=== PATIENT | male | born 1945 | race Hispanic/Latino ===

== ENCOUNTER → 2017-07-07 | Outpatient (CLI) | payer MEDICARE ==
--- NOTE | 2017-07-07 17:30 | Diagnostic Imaging Report ---
PROCEDURE:TESTICULAR ULTRASOUND and TESTICULAR DOPPLER ULTRASOUND COMPARISON:None. INDICATIONS:Left Testicular Pain TECHNIQUE: Amor-scale and color doppler images of the testicles and scrotal contents were obtained. Duplex imaging with spectral waveform analysis was performed of the testicular arteries and veins. FINDINGS: RIGHT SCROTUM: Testicle: 3.4 x 1.5 x 2.8 cm. 0.5 x 0.6 x 0.6 cm cyst in the right testicle. Epididymal head: 0.9 x 0.6 x 0.8 cm. 0.7 x 0.4 x 0.6 cm 0.3 x 0.2 x 0.3 cm right epididymal head cyst. Hydrocele: Mild Varicocele: None LEFT SCROTUM: Testicle: 3.4 x 1.6 x 2.1 cm. Several scattered punctate echogenic foci, likely calcifications without associated mass measured up to 0.1 cm. Epididymal head: 0.9 x 0.5 x 0.9 cm. Simple 4 x 0.4 x 0.4 cm and 0.2 x 0.2 x 0.2 cm left epididymal head cyst. Hydrocele: None Varicocele: None CONCLUSION: 1. Several left testicular microlithiasis, which is nonspecific. 2. Otherwise normal testicular ultrasound. Dictated by: Linus Hanna M.D. on 07/07/2017 at 17:30 Electronically approved by: Linus Hanna M.D. on 07/07/2017 at 17:30 Electronically approved by: Linus Hanna M.D. on 07/07/2017 at 17:32
--- NOTE | 2017-07-07 17:31 | Diagnostic Imaging Report ---
PROCEDURE:TESTICULAR DOPPLER ULTRASOUND COMPARISON:None. INDICATIONS:Left Testicular Pain TECHNIQUE: Amor-scale and color doppler images of the testicles and scrotal contents were obtained. Duplex imaging with spectral waveform analysis was performed of the testicular arteries and veins. FINDINGS: Please see testicular ultrasound for combined dictation. CONCLUSION: Please see testicular ultrasound for combined dictation. Dictated by: Linus Hanna M.D. on 07/07/2017 at 17:31 Electronically approved by: Linus Hanna M.D. on 07/07/2017 at 17:31
== END ==
LOC: US 15:14
PROVIDERS: ATTEND Urology
DX: G89.29 Other chronic pain (principal)
CPT/HCPCS: 76870; 93976

== ENCOUNTER → 2017-10-27 | Outpatient (CLI) | payer MEDICARE ==
--- NOTE | 2017-10-27 18:21 | Diagnostic Imaging Report ---
EXAM: Scrotal Ultrasound with Duplex INDICATION: Follow-up epididymal cysts. COMPARISON: Scrotal ultrasound dated 07/07/2017 TECHNIQUE: Transverse and longitudinal images were obtained of the scrotum with grayscale imaging, color Doppler and spectral waveform analysis. FINDINGS: Right testis: Size: 3.5 x 1.4 x 2.4 cm, normal in size. Echogenicity: Normal Mass/Cysts: 0.5 x 0 6 x 0.6 cm cyst in the mid/inferior portion, unchanged. Left testis: Size: 2.8 x 1.7 x 2.3 cm, normal in size. Echogenicity: Microcalcification is again seen, measuring 0.1 cm. Mass/Cysts: None Epididymis: Appearance: Normal in size without increased vascularity. Mass/Cysts: Multiple right epididymal head cysts/spermatoceles, the largest measuring 0.6 cm, previously 0.9 cm. Multiple left epididymal cysts/spermatoceles, the largest measuring 0.6 cm, previously 0.9 cm. Extratesticular: Masses: None Hydrocele: Trace bilateral hydrocele. Varicocele: None Doppler: Normal arterial flow to both testes and symmetrical flow on color Doppler evaluation is seen. No evidence of testicular torsion. IMPRESSION: 1. No evidence of testicular torsion. 2. Multiple bilateral epididymal head cyst/spermatoceles, stable or slightly decreased in size from prior exam. 3. Stable right testicular cyst. 4. Unchanged left testicular microcalcification. 5. Trace bilateral hydrocele. Signed by: Dr. Fareed Gayle MD on 10/27/2017 6:18 PM
== END ==
LOC: US 16:07
PROVIDERS: ATTEND Urology
DX: N43.40 Spermatocele of epididymis, unspecified (principal)
CPT/HCPCS: 76870; 93976

== ENCOUNTER → 2018-02-24 | Outpatient (CLI) | payer MEDICARE ==
[~2018-02-24] MED LIST: DOCUSATE SODIU100 MG PO; DOXAZOSIN MESYLA2 MG PO; FINASTERIDE5 MG PO; FUROSEMIDE INJ 10 MG/ML 4 ML VIAL ONE; HYDRALAZINE HCL25 MG PO; LASIX40 MG PO; LOSARTAN POTAS100 MG PO; METOPROLOL SUCC50 MG PO; POTASSIUM CHLO10 ME1 PO; TAMSULOSIN HCL0.4 MG PO
--- NOTE | 2018-02-24 20:22 | Diagnostic Imaging Report ---
Renal Scan with Lasix Washout Clinical information: 72 M with unspecified hydronephrosis; Htn. No history of renal disease. Technique: Following intravenous administration of 11 mCi of Tc-99m MAG3, dynamic images of the kidneys in the posterior projection were obtained through 40 minutes. Lasix 40 mg was administered intravenously at 10 minutes post injection of the tracer. Report: Left kidney: Perfusion of the left kidney is prompt. The kidney small but has a reniform shape. Extraction of tracer from the blood pool is moderately decreased. Clearance of tracer from the renal parenchyma is delayed and only a very small amount of tracer is actually cleared (excreted) from the renal parenchyma. The pelvicalyceal system is not dilated. Some but minimal pooling of tracer is seen within the pelvicalyceal system. No net drainage of tracer from the pelvicalyceal system is seen prior to administration of Lasix. No washout of tracer from the pelvicalyceal system is seen following administration of Lasix. The renogram reaches a plateau and has no downward slope at al post Lasix. No significant stasis of tracer is seen within the left ureter. Right kidney: Perfusion to the right kidney is prompt. The right kidney is small but has a reniform shape. Extraction of tracer by the renal parenchyma is moderately. Clearance of tracer from the pelvicaliceal system starts promptly but is not complete by the end of the study. No dilation of the pelvicalyceal system is present. Some but very minimal increased pooling of tracer is seen in the pelvicalyceal system. No net drainage of tracer is seen from the pelvicalyceal system prior to administration of Lasix. Very limited washout of tracer from the pelvicalyceal system is seen following administration of Lasix but the renogram quickly reaches a plateau. The T-1/2 for Lasix washout is undefined given the very short time of washout and the limited amount of tracer that is cleared from the parenchyma. No significant stasis of tracer is seen within the right ureter. Differential renal function: The left kidney contributes 46% of total renal function and the right kidney contributes 54% (normal 43-57%). Impression: 1. Scan evidence of moderately severe medical renal disease and/or tubular dysfunction in the left kidney. The excretory function is very poor. No hydronephrosis is present. Physiologically significant obstruction of the renal collecting system is not suspected but cannot be adequately assessed using the Lasix washout method due to the significantly impaired excretory function of the kidney. 2. The function of the right kidney is slightly better than the left and reflects medical renal disease evidenced by poor clearance (excretion) of tracer from the pelvicalyceal system. No tubular dysfunction is apparent as is seen in the left kidney. No hydronephrosis is present. Physiologically significant obstruction of the renal collecting system is not suspected but cannot be adequately assessed using the Lasix washout method due to the significantly impaired excretory function of the kidney. 3. The width of the differential renal function is preserved although visually the right kidney has better overall function evidenced by more clearance (excretion) of tracer from the renal parenchyma. Signed by: Dr. Sherice Leahy M.D. on 02/24/2018 8:19 PM
== END ==
LOC: NM 08:29
PROVIDERS: ATTEND Urology
DX: N13.30 Unspecified hydronephrosis (principal)
CPT/HCPCS: 78708; A9562; J1940

== ENCOUNTER 2018-04-01 09:20 | Inpatient (IN) | payer MEDICARE ==
[~2018-04-01] VITALS: Ht 177.8 cm; Wt 84.4 kg
--- OUTSIDE RECORDS SUMMARY | 2018-04-01 09:24 | XMS REPORT ---
Author Author [facility] Address Unknown Phone Unavailable Care Team Providers Care Fur Dresser Name Role Phone DEEPALI VERA Unavailable Unavailable Problems This patient has no known problems. Allergies, Adverse Reactions, Alerts This patient has no known allergies or adverse reactions. Medications This patient has no known medications. Results Test Description Test Time Test Comments Text Results Atomic Results Result Comments RENAL SCAN W/LASIX 2018-02-24 19:13:00 [facility] [address] [place] [address] Patient Name: MINI TEJEDA MR #: [id number] : 1945 Age/Sex: 72/M Req #: [id number] Adm Physician: Ordered by: DEEPALI VERA MD Report #: [id number] Location: [place] Room/Bed: Procedure: [id number] NM/RENAL SCAN W/LASIX Exam Date: 02/24/18 Exam Time: 0845 REPORT STATUS: Signed Renal Scan with Lasix Washout Clinical information: 72 M with unspecified hydronephrosis; Htn. No history of renal disease. Technique: Following intravenous administration of 11 mCi of Tc-99m MAG3, dynamic images of the kidneys in the posterior projection were obtained through 40 minutes. Lasix 40 mg was administered intravenously at 10 minutes post injection of the tracer. Report: Left kidney: Perfusion of the left kidney is prompt. The kidney small but has a reniform shape. Extraction of tracer from the blood pool is moderately decreased. Clearance of tracer from the renal parenchyma is delayed and only a very small amount of tracer is actually cleared (excreted) from the renal parenchyma. The pelvicalyceal system is not dilated. Some but minimal pooling of tracer is seen within the pelvicalyceal system. No net drainage of tracer from the pelvicalyceal system is seen prior to administration of Lasix. No washout of tracer from the pelvicalyceal system is seen following administration of Lasix. The renogram reaches a plateau and has no downward slope at al post Lasix. No significant stasis of tracer is seen within the left ureter. Right kidney: Perfusion to the right kidney is prompt. The right kidney is small but has a reniform shape. Extraction of tracer by the renal parenchyma is moderately. Clearance of tracer from the pelvicaliceal system starts promptly but is not complete by the end of the study. No dilation of the pelvicalyceal system is present. Some but very minimal increased pooling of tracer is seen in the pelvicalyceal system. No net drainage of tracer is seen from the pelvicalyceal system prior to administration of Lasix. Very limited washout of tracer from the pelvicalyceal system is seen following administration of Lasix but the renogram quickly reaches a plateau. The T-1/2 for Lasix washout is undefined given the very short time of washout and the limited amount of tracer that is cleared from the parenchyma. No significant stasis of tracer is seen within the right ureter. Differential renal function: The left kidney contributes 46% of total renal function and the right kidney contributes 54% (normal 43- 57%). Impression: 1. Scan evidence of moderately severe medical renal disease and/or tubular dysfunction in the left kidney. The excretory function is very poor. No hydronephrosis is present. Physiologically significant obstruction of the renal collecting system is not suspected but cannot be adequately assessed using the Lasix washout method due to the significantly impaired excretory function of the kidney. 2. The function of the right kidney is slightly better than the left and reflects medical renal disease evidenced by poor clearance (excretion) of tracer from the pelvicalyceal sy stem. No tubular dysfunction is apparent as is seen in the left kidney. No hydronephrosis is present. Physiologically significant obstruction of the renal collecting system is not suspected but cannot be adequately assessed using the Lasix washout method due to the significantly impaired excretory function of the kidney. 3. The width of the differential renal function is preserved although visually the right kidney has better overall function evidenced by more clearance (excretion) of tracer from the renal parenchyma. Signed by: Dr. Bryant Leahy M.D. on 02/24/2018 8:19 PM Dictated By: BRYANT LEAHY MD 18 Transcribed By: NELY on 02/24/182018 COPY TO: DEEPALI VERA MD US TESTICULAR DOPPLER LTD 2017-10-27 18:03:00 [place] [address] Patient Name: MINI TEJEDA MR #: [id number] : 1945 Age/Sex: 71/M Req #: [id number] Adm Physician: Ordered by: DEEPALI VERA MD Report #: [id number] Location: US Room/Bed: Procedure: [id number] US/US TESTICULAR DOPPLER LTD Exam Date: 10/27/17 Exam Time: 1637 REPORT STATUS: Signed EXAM: Scrotal Ultrasound with Duplex INDICATION: Follow-up epididymal cysts. COMPARISON: Scrotal ultrasound dated 07/07/2017 TECHNIQUE: Transverse and longitudinal images were obtained of the scrotum with grayscale imaging, color Doppler and spectral waveform analysis. FINDINGS: Right testis: Size: 3.5 x 1.4 x 2.4 cm, normal in size. Echogenicity: Normal Mass/Cysts: 0.5 x 0 6 x 0.6 cm cyst in the mid/inferior portion, unchanged. Left testis: Size: 2.8 x 1.7 x 2.3 cm, normal in size. Echogenicity: Microcalcification is again seen, measuring 0.1 cm. Mass/Cysts: None Epididymis: Appearance: Normal in size without increased vascularity. Mass/Cysts: Multiple right epididymal head cysts/spermatoceles, the largest measuring 0.6 cm, previously 0.9 cm. Multiple left epididymal cysts/spermatoceles, the largest measuring 0.6 cm, previously 0.9 cm. Extratesticular: Masses: None Hydrocele: Trace bilateral hydrocele. Varicocele: None Doppler: Normal arterial flow to both testes and symmetrical flow on color Doppler evaluation is seen. No evidence of testicular torsion. IMPRESSION: 1. No evidence of testicular torsion. 2. Multiple bilateral epididymal head cyst/spermatoceles, stable or slightly decreased in size from prior exam. 3. Stable right testicular cyst. 4. Unchanged left testicular microcalcification. 5. Trace bilateral hydrocele. Signed by: Dr. Fareed Parr MD on 10/27/2017 6:18 PM Dictated By: FAREED PARR MD 17 Transcribed By: NELY on 10/27/171817 COPY TO: DEEPALI VERA MD TESTICULAR 2017-10-27 18:03:00 [place] [address] Patient Name: MINI TEJEDA MR #: [id number] : 1945 Age/Sex: 71/M Req #: [id number] Adm Physician: Ordered by: DEEPALI VERA MD Report #: [id number] Location: US Room/Bed: Procedure: [id number] US/US TESTICULAR Exam Date: 10/27/17 Exam Time: 1637 REPORT STATUS: Signed EXAM: Scrotal Ultrasound with Duplex INDICATION: Follow-up epididymal cysts. COMPARISON: Scrotal ultrasound dated 07/07/2017 TECHNIQUE: Transverse and longitudinal images were obtained of the scrotum with grayscale imaging, color Doppler and spectral waveform analysis. FINDINGS: Right testis: Size: 3.5 x 1.4 x 2.4 cm, normal in size. Echogenicity: Normal Mass/Cysts: 0.5 x 0 6 x 0.6 cm cyst in the mid/inferior portion, unchanged. Left testis: Size: 2.8 x 1.7 x 2.3 cm, normal in size. Echogenicity: Microcalcification is again seen, measuring 0.1 cm. Mass/Cysts: None Epididymis: Appearance: Normal in size without increased vascularity. Mass/Cysts: Multiple right epididymal head cysts/spermatoceles, the largest measuring 0.6 cm, previously 0.9 cm. Multiple left epididymal cysts/spermatoceles, the largest measuring 0.6 cm, previously 0.9 cm. Extratesticular: Masses: None Hydrocele: Trace bilateral hydrocele. Varicocele: None Doppler: Normal arterial flow to both testes and symmetrical flow on color Doppler evaluation is seen. No evidence of testicular torsion. IMPRESSION: 1. No evidence of testicular torsion. 2. Multiple bilateral epididymal head cyst/spermatoceles, stable or slightly decreased in size from prior exam. 3. Stable right testicular cyst. 4. Unchanged left testicular microcalcification. 5. Trace bilateral hydrocele. Signed by: Dr. Fareed Parr MD on 10/27/2017 6:18 PM Dictated By: FAREED PARR MD 17 Transcribed By: NELY on 10/27/171817 COPY TO: DEEPALI VERA MD TESTICULAR [place] [address] Patient Name: MINI TEJEDA MR #: [id number] : 1945 Age/Sex: 71/M Req #: [id number] Adm Physician: Ordered by: DEEPALI VERA MD Report #: [id number] Location: US Room/Bed: Procedure: [id number] US/US TESTICULAR Exam Date: 07/07/17 Exam Time: 1601 REPORT STATUS: Signed PROCEDURE: TESTICULAR ULTRASOUND and TESTICULAR DOPPLER ULTRASOUND COMPARISON: None. INDICATIONS: Left Testicular Pain TECHNIQUE: Amor- scale and color doppler images of the testicles and scrotal contents were obtained. Duplex imaging with spectral waveform analysis was performed of the testicular arteries and veins. FINDINGS: RIGHT SCROTUM: Testicle: 3.4 x 1.5 x 2.8 cm. 0.5 x 0.6 x 0.6 cm cyst in the right testicle. Epididymal head: 0.9 x 0.6 x 0.8 cm. 0.7 x 0.4 x 0.6 cm 0.3 x 0.2 x 0.3 cm right epididymal head cyst. Hydrocele: Mild Varicocele: None LEFT SCROTUM: Testicle: 3.4 x 1.6 x 2.1 cm. Several scattered punctate echogenic foci, likely calcifications without associated mass measured up to 0.1 cm. Epididymal head: 0.9 x 0.5 x 0.9 cm. Simple 4 x 0.4 x 0.4 cm and 0.2 x 0.2 x 0.2 cm left epididymal head cyst. Hydrocele: None Varicocele: None CONCLUSION: 1. Several left testicular microlithiasis, which is nonspecific. 2. Otherwise normal testicular ultrasound. Dictated by: Carmen Knox M.D. on 07/07/2017 at 17:30 Electronically approved by: Carmen Knox M.D. on 07/07/2017 at 17:30 Electronically approved by: Carmen Knox M.D. on 07/07/2017 at 17:32 Dictated By: CARMEN KNOX MD 173 Transcribed By: TRINA on 07/07/171732 COPY TO: DEEPALI VERA MD TESTICULAR DOPPLER LTD [place] [address] Patient Name: MINI TEJEDA MR #: [id number] : 1945 Age/Sex: 71/M Req #: [id number] Adm Physician: Ordered by: DEEPALI VERA MD Report #: [id number] Location: US Room/Bed: Procedure: [id number] US/US TESTICULAR DOPPLER LTD Exam Date: 07/07/17 Exam Time: 1601 REPORT STATUS: Signed PROCEDURE: TESTICULAR DOPPLER ULTRASOUND COMPARISON: None. INDICATIONS: Left Testicular Pain TECHNIQUE: Amor-scale and color doppler images of the testicles and scrotal contents were obtained. Duplex imaging with spectral waveform analysis was performed of the testicular arteries and veins. FINDINGS: Please see testicular ultrasound for combined dictation. CONCLUSION: Please see testicular ultrasound for combined dictation. Dictated by: Carmen Knox M.D. on 07/07/2017 at 17:31 Electronically approved by: Carmen Knox M.D. on 07/07/2017 at 17:31 Dictated By: CARMEN KNOX MD 173 Transcribed By: TRINA on 07/07/17 173 COPY TO: DEEPALI VERA MD
--- OUTSIDE RECORDS SUMMARY | 2018-04-01 09:24 | XMS REPORT | Summary of Care ---
Author Author [facility] Address Unknown Phone Unavailable Encounter DELFIN Molina(ZURI) [id number] Date(s): 09/16/15 - 09/16/15 [facility] [address] [place] [address]- Discharge Diagnosis: Enlarged prostate Discharge Diagnosis: Rectal bleeding Discharge Disposition: Home Attending Physician: Migue Joseph DO Vital Signs Most recent to 1 2 oldest [Reference Range]: Height 177.8 cm (09/16/15 2:16 PM) Temperature Oral 98.2 DegF 98.6 DegF [96.4-99.1 DegF] (09/16/15 7:02 PM) (09/16/15 2:16 PM) Blood Pressure 160/75 mmHg 161/79 mmHg [90-140/60-90 mmHg] *HI* *HI* (09/16/15 7:02 PM) (09/16/15 2:16 PM) Respiratory Rate 16 BRMIN 18 BRMIN [14-20 BRMIN] (09/16/15 7:02 PM) (09/16/15 2:16 PM) Peripheral Pulse 75 bpm 77 bpm Rate [60-100 bpm] (09/16/15 7:02 PM) (09/16/15 2:16 PM) Weight 86.364 kg (09/16/15 2:16 PM) Body Mass Index 27.32 m2 (09/16/15 2:16 PM) Problem List No data available for this section Allergies, Adverse Reactions, Alerts Substance Reaction Severity Status NKDA Active Medications No data available for this section Results ELECTROLYTES Most recent to 1 oldest [Reference Range]: Sodium Lvl [135-145 142 mEq/L mEq/L] (09/16/15 3:30 PM) Potassium Lvl 3.3 mEq/L [3.5-5.1 mEq/L] *LOW* (09/16/15 3:30 PM) Chloride Lvl [95-109 104 mEq/L mEq/L] (09/16/15 3:30 PM) CO2 [24-32 mEq/L] 29 mEq/L (09/16/15 3:30 PM) AGAP [10.0-20.0 12.3 mEq/L mEq/L] (09/16/15 3:30 PM) CHEM PANEL Most recent to 1 oldest [Reference Range]: Creatinine Lvl 0.98 mg/dL [0.50-1.40 mg/dL] (09/16/15 3:30 PM) eGFR 78 mL/min/1.73m2 1 *NA* (09/16/15 3:30 PM) BUN [7-22 mg/dL] 9 mg/dL (09/16/15 3:30 PM) B/C Ratio [6-25] 9 (09/16/15 3:30 PM) Glucose Lvl [70-99 101 mg/dL mg/dL] *HI* (09/16/15 3:30 PM) Total Protein 7.8 g/dL [6.4-8.4 g/dL] (09/16/15 3:30 PM) Albumin Lvl [3.5-5.0 3.8 g/dL g/dL] (09/16/15 3:30 PM) Globulin [2.0-4.0 4.0 g/dL g/dL] (09/16/15 3:30 PM) A/G Ratio [0.7-1.6] 1.0 (09/16/15 3:30 PM) Calcium Lvl 9.2 mg/dL [8.5-10.5 mg/dL] (09/16/15 3:30 PM) ALT [0-65 unit/L] 23 unit/L (09/16/15 3:30 PM) AST [0-37 unit/L] 18 unit/L (09/16/15 3:30 PM) Alk Phos [39-136 76 unit/L unit/L] (09/16/15 3:30 PM) Bili Total [0.2-1.3 0.5 mg/dL mg/dL] (09/16/15 3:30 PM) Lipase Lvl [73-393 170 unit/L unit/L] (09/16/15 3:30 PM) 1Result Comment: The eGFR is calculated using the CKD-EPI formula. In most young, healthy individuals the eGFR will be >90 mL/min/1.73m2. The eGFR declines with age. An eGFR of 60-89 may be normal in some populations, particularly the elderly, for whom the CKD-EPI formula has not been extensively validated. Use of the eGFR is not recommended in the following populations: Individuals with unstable creatinine concentrations, including patients and those with serious co-morbid conditions. Patients with extremes in muscle mass or diet. The data above are obtained from the National Kidney Disease Education Program ( NKDEP) which additionally recommends that when the eGFR is used in patients with extremes of body mass index for purposes of drug dosing, the eGFR should be mul tiplied by the estimated BMI. URINE AND STOOL Most recent to 1 oldest [Reference Range]: UA Turbidity [Clear] Clear (09/16/15 3:30 PM) UA Color Ltyellow *NA* (09/16/15 3:30 PM) UA pH [5.0-8.0] 7.0 (09/16/15 3:30 PM) UA Spec Grav 1.009 [<=1.030] (09/16/15 3:30 PM) UA Glucose [Negative Negative mg/dL mg/dL] *NA* (09/16/15 3:30 PM) UA Blood [Negative] Negative (09/16/15 3:30 PM) UA Ketones [Negative Negative mg/dL mg/dL] *NA* (09/16/15 3:30 PM) UA Protein [Negative Negative mg/dL mg/dL] (09/16/15 3:30 PM) UA Urobilinogen <=1.0 mg/dL [0.1-1.0 mg/dL] *NA* (09/16/15 3:30 PM) UA Bili [Negative] Negative *NA* (09/16/15 3:30 PM) UA Leuk Est Trace [Negative] *ABN* (09/16/15 3:30 PM) UA Nitrite Negative [Negative] (09/16/15 3:30 PM) UA WBC [0-5 /HPF] 2 /HPF (09/16/15 3:30 PM) UA RBC [0-2 /HPF] 2 /HPF (09/16/15 3:30 PM) UA Sq Epi None Seen *NA* (09/16/15 3:30 PM) Occult Bld Stl Positive [Negative] *ABN* (09/16/15 3:30 PM) HEMATOLOGY Most recent to 1 oldest [Reference Range]: WBC [3.7-10.4 K/CMM] 6.8 K/CMM (09/16/15 3:30 PM) RBC [4.70-6.10 4.75 M/CMM M/CMM] (09/16/15 3:30 PM) Hgb [14.0-18.0 g/dL] 14.6 g/dL (09/16/15 3:30 PM) Hct [42.0-54.0 %] 43.5 % (09/16/15 3:30 PM) MCV [80.0-94.0 fL] 91.5 fL (09/16/15 3:30 PM) MCH [27.0-31.0 pg] 30.7 pg (09/16/15 3:30 PM) MCHC [32.0-36.0 33.6 g/dL g/dL] (09/16/15 3:30 PM) RDW [11.5-14.5 %] 14.3 % (09/16/15 3:30 PM) Platelet [133-450 248 K/CMM K/CMM] (09/16/15 3:30 PM) MPV [7.4-10.4 fL] 8.6 fL (09/16/15 3:30 PM) Segs [45.0-75.0 %] 61.6 % (09/16/15 3:30 PM) Lymphocytes 29.8 % [20.0-40.0 %] (09/16/15 3:30 PM) Monocytes [2.0-12.0 6.3 % %] (09/16/15 3:30 PM) Eosinophils [0.0-4.0 1.2 % %] (09/16/15 3:30 PM) Basophils [0.0-1.0 1.1 % %] *HI* (09/16/15 3:30 PM) Segs-Bands # 4.2 K/CMM [1.5-8.1 K/CMM] (09/16/15 3:30 PM) Lymphocytes # 2.0 K/CMM [1.0-5.5 K/CMM] (09/16/15 3:30 PM) Monocytes # [0.0-0.8 0.4 K/CMM K/CMM] (09/16/15 3:30 PM) Eosinophils # 0.1 K/CMM [0.0-0.5 K/CMM] (09/16/15 3:30 PM) Basophils # [0.0-0.2 0.1 K/CMM K/CMM] (09/16/15 3:30 PM) Immunizations No data available for this section Procedures No data available for this section Social History Social History Type Response Smoking Status Never smoker; Ready to change: No; Exposure to Tobacco Smoke None; Cigarette Smoking Last 365 Days No; Reg Smoking Cessation Counseling No Assessment and Plan No data available for this section
--- OUTSIDE RECORDS SUMMARY | 2018-04-01 09:24 | XMS REPORT | Continuity of Care Document ---
Author Author [facility] Interface Address Unknown Phone Unavailable Problems Problem Status Onset Date Classification Date Reported Comments Source INTRACTABLE VOMITING, CHEST PAIN Active 02/04/2018 [facility] CHEST PAIN Active 02/04/2018 [facility] Discharge Diagnosis: Enlarged prostate 09/16/2015 09/19/2015 [facility] Discharge Diagnosis: Rectal bleeding 09/16/2015 09/19/2015 [facility] RECTAL BLEEDING Active 09/16/2015 [facility] VOMITING, UNSPECIFIED Active [facility] CHEST PAIN, UNSPECIFIED Active [facility] Medications Medication Details Route Status Patient Instructions Ordering Provider Order Date Source Allergies, Adverse Reactions, Alerts Substance Category Reaction Severity Reaction type Status Date Reported Comments Source Immunizations Immunization Date Given Site Status Last Updated Comments Source Results Order Name Results Value Reference Range Date Interpretation Comments Source ED Abdomen/Pelvis IV contrast only CT ED Abdomen/Pelvis IV contrast only CT CT ABDOMEN AND PELVIS WITH IV CONTRAST CLINICAL INDICATION: - abdominal pain. COMPARISON: 09/16/15 TECHNIQUE: Helical imaging was performed from diaphragm through the symphysis with coronal and sagittal reconstructions. CT imaging was performed with exposure control parameters to reduce radiation dose. IV CONTRAST: [address] Radiation Dose: MNA=6185.41 mGy-cm FINDINGS: LOWER CHEST: Trace bilateral pleural effusions with adjacent airspace opacities that may represent adjacent compressive atelectasis. Airspace opacities within the lingula may also represent atelectasis. Underlying superimposed infiltrate cannot be excluded. LIVER: The liver is mildly enlarged measuring 18 cm in craniocaudal direction. GALLBLADDER: Unremarkable. INTRAHEPATIC BILE DUCT AND EXTRAHEPATIC BILE DUCT: Unremarkable. PANCREAS: Unremarkable. SPLEEN: Unremarkable. ADRENALS: Unremarkable. KIDNEYS, ureters and bladder: Bilateral moderate hydroureteronephrosis is identified, new since the comparison study. Age-indeterminate mild perinephric and periureteric fat stranding is present. The bladder is elongated and demonstrates trabeculated meyer with a 4.7 cm bladder diverticulum along the dome. The prostate gland is enlarged and lobular and indents the inferior bladder floor, similar to the comparison study. Findings may represent bladder outlet obstruction. No obstructing urolithiasis. BOWEL: The small and large bowel are normal in caliber. No evidence of bowel wall thickening. Small fluid level within the distal esophagus may represent findings of gastroesophageal reflux. APPENDIX: The appendix measures up to 10 mm in diameter and demonstrates submucosal fatty infiltration without surrounding inflammatory changes, similar in appearance to the comparison study dated 09/16/2015. OTHER: No free air or free fluid. Small fat-containing left inguinal hernia is identified without acute inflammatory changes. VASCULAR: There is no abdominal aortic aneurysm. Mild scattered calcified atherosclerotic changes are noted along the abdominal aorta. LYMPH NODES: No evidence of pathologic appearing lymph nodes. OSSEOUS STRUCTURES: No acute abnormality seen. Multilevel lumbar spondylosis with moderate to severe disc space height loss at the L3-L4 and L5-S1 level L4- L5 moderate to severe facet arthrosis. Nonspecific sclerotic changes along the right lateral iliac wing are redemonstrated and appear similar to the comparison study. IMPRESSION: Moderate bilateral hydroureteronephrosis, new since the comparison study. Elongated and trabeculated bladder with enlarged lobular prostate is redemonstrated. Constellation of findings can represent bladder outlet obstruction. Age-indeterminate mild perinephric and periureteric fat stranding is noted. Correlate with urinalysis if concern for urinary tract infection. Bilateral trace pleural effusions with adjacent airspace opacities and lingular opacities may represent subsegmental atelectasis. Superimposed infiltrate is not excluded. Small fluid level within the distal esophagus may represent findings of gastroesophageal reflux. Additional findings as above. SL: [id number] 02/04/2018 - - Read by: Davina Lagunas MD Dictated Date/time: 02/05/18 02:00 Electronically Signed by: Davina Lagunas MD 02/05/18 02:19 FINAL REPORT [facility] Chest 2 views DX Chest 2 views DX EXAM: Chest 2 views DX DATE: 02/04/2018 8:45 PM CDT INDICATION: - chest pain COMPARISON: None. IMPRESSION: Grossly normal cardiac silhouette and mediastinum. Atherosclerotic thoracic aorta. No focal consolidation, significant pleural effusion or pneumothorax. Mild thoracic spondylosis. SL: [id number] 02/04/2018 - - Read by: Nicholas Joseph MD Dictated Date/time: 02/04/18 21:49 Electronically Signed by: Nicholas Joseph MD 02/04/18 21:49 FINAL REPORT [facility] CHEM PANEL Lipase Lvl 170 unit/L 73 - 393 09/16/2015 [facility] ELECTROLYTES AGAP 12.3 meq/L 10.0 - 20.0 09/16/2015 [facility] ELECTROLYTES B/C Ratio 9 6 - 25 09/16/2015 [facility] ELECTROLYTES A/G Ratio 1.0 0.7 - 1.6 09/16/2015 [facility] ELECTROLYTES Globulin 4.0 g/dL 2.0 - 4.0 09/16/2015 [facility] ELECTROLYTES eGFR 78 mL/min/1.73m2 09/16/2015 Result Comment: The eGFR is calculated using the [...] from the National Kidney Disease Education Program (NKDEP) which additionally recommends that when the eGFR is used in patients with extremes of body mass index for purposes of drug dosing, the eGFR should be multiplied by the estimated BMI. [facility] ELECTROLYTES Creatinine Lvl 0.98 mg/dL 0.50 - 1.40 09/16/2015 [facility] ELECTROLYTES BUN 9 mg/dL 7 - 22 09/16/2015 [facility] ELECTROLYTES Glucose Lvl 101 mg/dL 70 - 99 09/16/2015 [facility] ELECTROLYTES Sodium Lvl 142 meq/L 135 - 145 09/16/2015 [facility] ELECTROLYTES Albumin Lvl 3.8 g/dL 3.5 - 5.0 09/16/2015 [facility] ELECTROLYTES Total Protein 7.8 g/dL 6.4 - 8.4 09/16/2015 [facility] ELECTROLYTES ALT 23 unit/L 0 - 65 09/16/2015 [facility] ELECTROLYTES Bili Total 0.5 mg/dL 0.2 - 1.3 09/16/2015 [facility] ELECTROLYTES Alk Phos 76 unit/L 39 - 136 09/16/2015 [facility] ELECTROLYTES Calcium Lvl 9.2 mg/dL 8.5 - 10.5 09/16/2015 [facility] ELECTROLYTES CO2 29 meq/L 24 - 32 09/16/2015 [facility] ELECTROLYTES Chloride Lvl 104 meq/L 95 - 109 09/16/2015 [facility] ELECTROLYTES Potassium Lvl 3.3 meq/L 3.5 - 5.1 09/16/2015 [facility] ELECTROLYTES AST 18 unit/L 0 - 37 09/16/2015 [facility] HEMATOLOGY Monocytes 6.3 % 2.0 - 12.0 09/16/2015 [facility] HEMATOLOGY Basophils # 0.1 K/CMM 0.0 - 0.2 09/16/2015 [facility] HEMATOLOGY Eosinophils # 0.1 K/CMM 0.0 - 0.5 09/16/2015 [facility] HEMATOLOGY Monocytes # 0.4 K/CMM 0.0 - 0.8 09/16/2015 [facility] HEMATOLOGY Lymphocytes # 2.0 K/CMM 1.0 - 5.5 09/16/2015 [facility] HEMATOLOGY Segs-Bands # 4.2 K/CMM 1.5 - 8.1 09/16/2015 [facility] HEMATOLOGY Basophils 1.1 % 0.0 - 1.0 09/16/2015 [facility] HEMATOLOGY Eosinophils 1.2 % 0.0 - 4.0 09/16/2015 [facility] Lymphocytes 29.8 % 20.0 - 40.0 09/16/2015 [facility] Segs 61.6 % 45.0 - 75.0 09/16/2015 [facility] MPV 8.6 fL 7.4 - 10.4 09/16/2015 [facility] Platelet 248 K/CMM 133 - 450 09/16/2015 [facility] HEMATOLOGY RDW 14.3 % 11.5 - 14.5 09/16/2015 [facility] MCHC 33.6 g/dL 32.0 - 36.0 09/16/2015 [facility] MCH 30.7 pg 27.0 - 31.0 09/16/2015 [facility] HEMATOLOGY WBC 6.8 K/CMM 3.7 - 10.4 09/16/2015 [facility] HEMATOLOGY RBC 4.75 M/CMM 4.70 - 6.10 09/16/2015 [facility] Hgb 14.6 g/dL 14.0 - 18.0 09/16/2015 [facility] HEMATOLOGY Hct 43.5 % 42.0 - 54.0 09/16/2015 [facility] HEMATOLOGY MCV 91.5 fL 80.0 - 94.0 09/16/2015 [facility] URINE AND STOOL UA Color Ltyellow 09/16/2015 [facility] URINE AND STOOL UA Sq Epi None Seen 09/16/2015 [facility] URINE AND STOOL UA RBC 2 /HPF 0 - 2 09/16/2015 [facility] URINE AND STOOL UA WBC 2 /HPF 0 - 5 09/16/2015 [facility] URINE AND STOOL UA Urobilinogen <=1.0 mg/dL 0.1 - 1.0 09/16/2015 [facility] URINE AND STOOL UA Ketones Negative mg/dL Negative mg/dL 09/16/2015 [facility] URINE AND STOOL UA Leuk Est Trace *ABN* (09/16/15 3:30 PM) Negative 09/16/2015 [facility] URINE AND STOOL UA Nitrite Negative (09/16/15 3:30 PM) Negative 09/16/2015 [facility] URINE AND STOOL UA Blood Negative (09/16/15 3:30 PM) Negative 09/16/2015 [facility] URINE AND STOOL UA Bili Negative *NA* (09/16/15 3:30 PM) Negative 09/16/2015 [facility] URINE AND STOOL UA pH 7.0 5.0 - 8.0 09/16/2015 [facility] URINE AND STOOL UA Spec Grav 1.009 <=1.030 09/16/2015 [facility] URINE AND STOOL UA Glucose Negative mg/dL Negative mg/dL 09/16/2015 [facility] URINE AND STOOL UA Protein Negative mg/dL Negative mg/dL 09/16/2015 [facility] URINE AND STOOL UA Turbidity Clear (09/16/15 3:30 PM) Clear 09/16/2015 [facility] URINE AND STOOL Occult Bld Stl Positive *ABN* (09/16/15 3:30 PM) Negative 09/16/2015 [facility] Abdomen/Pelvis w IV contrast CT Abdomen/Pelvis w IV contrast CT Study: Abdomen/Pelvis w IV contrast CT 09/16/2015 2:18 PM CDT Patient Name: MINI TEJEDA MR: [id number] : 1945; Age: 69 years y/o Male Ordering Physician: Roland Cardoza Clinical Indication: Generalized abdominal pain and rectal bleeding for one week. Comparison: None TECHNIQUE: Contiguous transaxial CT images were obtained from the diaphragm through the symphysis pubis.Sagittal and coronal reformatted images were prepared. IV CONTRAST: Yes GI CONTRAST: No. CT ABDOMEN WITH CONTRAST: SOLID ORGANS: 1. Mildly limited enhancement. 2. Liver size at the upper limits of normal to mildly enlarged. 3. Normal kidneys, adrenal glands, pancreas, spleen, and gallbladder. BOWEL: Mild constipation in diverticulosis without acute diverticulitis. The retrocecal appendix is dilated measuring up to 9-10 mm with a mildly thickened enhancing wall, but without significant periappendiceal inflammation. Under distended thick-walled stomach. PERITONEUM: No free intraperitoneal fluid or air. RETROPERITONEUM: Lymph nodes: No lymphadenopathy or mass. Abdominal aorta: Normal caliber abdominal aorta. LUNG BASES: Bilateral basilar subsegmental atelectasis and scarring. Heart size at the upper limits of normal to mildly enlarged. OSSEOUS STRUCTURES: Mild to moderate spinal degenerative change without acute fracture, dislocation, or suspicious focal osseous lesion. CT PELVIS WITH CONTRAST: URINARY BLADDER: Dilated somewhat thick-walled trabeculated urinary bladder with a 4.2 cm diverticulum in the dome. SOLID ORGANS: Enlarged heterogeneous masslike prostate with focal lobulation superiorly into the inferior aspect of the urinary bladder. Mildly enlarged seminal vesicles. LYMPH NODES: Small fat-containing bilateral inguinal lymph hernias. Small bilateral inguinal lymph nodes. FREE FLUID: No free pelvic fluid. OSSEOUS STRUCTURES: No fracture, dislocation, or suspicious focal osseous lesion. IMPRESSION: 1. Mild constipation and diverticulosis. 2. Mildly dilated mildly thick-walled appendix without definitive periappendiceal inflammation or luminal fluid. Clinical correlation is required, but findings are equivocal for minimal acute appendicitis. 3. Enlarged lobulated masslike prostate and seminal vesicles may be related to hypertrophy or neoplasm. Clinical correlation and follow-up are required. 4. Trabeculated urinary bladder with a diverticulum in the dome. Findings are suggestive of bladder outlet obstruction. 5. Heart size at the upper limits of normal to mildly enlarged. 6. Liver size at the upper limits of normal to mildly enlarged. SL: VERONICA 09/16/2015 - - Read by: Caesar Elizondo MD Dictated Date/time: 09/16/15 18:08 Electronically Signed by: Caesar Elizondo MD 09/16/15 18:19 FINAL REPORT [facility] Neck soft tissue w contrast CT Neck soft tissue w contrast CT CT NECK SOFT TISSUES: CLINICAL INDICATION: Soft tissue swelling and/or palpable mass on the left in patient with possible sialoadenitis COMMENT: CT soft tissues neck was performed with dynamic intravenous contrast enhancement. The suprahyoid neck demonstrates no specific abnormalities particularly in relation to the left submandibular gland in the course of Warthin's duct. No retained calculi or inflammatory changes seen. The pharynx, hypopharynx, and larynx demonstrates no focal abnormalities but there is asymmetry of the left piriform sinus at the aryepiglottic fold and extending proximally along the left hypopharyngeal wall likely of no significance but warranting direct visualization given the fact that the patient pointed to this as the area of clinical concern. The lymph nodes are reactive with multiple nonspecific subcentimeter level 1, 2, and 5 nonpathologic appearing reactive lymph nodes. The thyroid is normal. The thoracic inlet demonstrates no abnormalities. A calcified granuloma noted at the left [employer]. The bony structures demonstrate cervical spondylosis. CONCLUSION: NO EVIDENCE FOR SIALADENITIS AT THE LEFT SUBMANDIBULAR GLAND. THERE IS ASYMMETRY WITH SOME MILD THICKENING OF THE LEFT PIRIFORM SINUS AND ARYEPIGLOTTIC FOLD INCLUDING THE LEFT LATERAL PHARYNGEAL WALL LIKELY NORMAL MUCOSAL REDUNDANCY WITHOUT A DEFINITE FOCAL ABNORMALITY. MULTIPLE SUBCENTIMETER REACTIVE LEVEL 1, 2, AND 5 LYMPH NODES. CERVICAL SPONDYLOSIS IS MILD TO MODERATE. 10/16/2012 - - Read by: Fidel Villasenor Dictated Date/time: 10/16/12 16:37 Electronically Signed by: Fidel Villasenor MD 10/16/12 16:47 FINAL REPORT [facility] Vital Signs Vital Sign Value Date Comments Source Respitory Rate 16 09/17/2015 [facility] Heart Rate 75 09/17/2015 [facility] Systolic (mm Hg) 160 09/17/2015 [facility] Diastolic (mm Hg) 75 09/17/2015 [facility] Temperature Oral (F) 98.2 F 09/17/2015 [facility] BMI Calculated 27.32 09/16/2015 [facility] Weight 86.364 09/16/2015 [facility] Height 177.8 cm 09/16/2015 [facility] Respitory Rate 18 09/16/2015 [facility] Temperature Oral (F) 98.6 F 09/16/2015 [facility] Systolic (mm Hg) 161 09/16/2015 [facility] Diastolic (mm Hg) 79 09/16/2015 [facility] Heart Rate 77 09/16/2015 [facility] Encounters Location Location Details Encounter Type Encounter Number Reason For Visit Attending Provider ADM Date DC Date Status Source [facility] [id number] Migue Joseph 09/16/2015 09/17/2015 [facility] Procedures Procedure Code Date Perfomer Comments Source
[2018-04-01 10:07] LABS: BASOPHILS # (AUTO) 0.1 (0.0-0.1); BASOPHILS % 0.9 % (0.0-1.0); EOSINOPHILS # (AUTO) 0.1 (0.0-0.4); EOSINOPHILS % 1.8 % (0.0-6.0); HEMATOCRIT 31.8 % (38.2-49.6); HEMOGLOBIN 10.5 g/dL (14.0-18.0); LYMPHOCYTES # (AUTO) 1.1 (1.0-3.2); MEAN CORPUSCULAR HEMOGLOBIN 30.6 pg (28-32); MEAN CORPUSCULAR VOLUME 92.7 fL (81-99); MONOCYTES # (AUTO) 0.4 (0.2-0.8); NEUTROPHILS # (AUTO) 3.8 (2.1-6.9); NEUTROPHILS % 68.9 % (38.7-80.0); PLATELET COUNT 225 x10e3/uL (140-360); RED BLOOD COUNT 3.43 x10e6/uL (4.3-5.7); RED CELL DISTRIBUTION WIDTH 13.5 % (11.7-14.4)
[2018-04-01 10:21] LABS: ALBUMIN/GLOBULIN RATIO 1.2 (0.8-2.0); ANION GAP 14.9 mmol/L (8-16); CALCIUM 9.9 mg/dL (8.4-10.2); CREATININE, SERUM 3.77 mg/dL (0.72-1.25); POTASSIUM 3.9 mmol/L (3.5-5.1)
[2018-04-01 10:28] LABS: CREATINE KINASE MB 1.2 ng/mL (0-5.0)
[2018-04-01 10:41] LABS: BILIRUBIN,URINE NEGATIVE (NEGATIVE); CLARITY,URINE CLEAR (CLEAR); COLOR,URINE YELLOW (YELLOW); KETONES,URINE NEGATIVE (NEGATIVE); LEUKOCYTE ESTERASE ,URINE NEGATIVE (NEGATIVE); NITRITE,URINE NEGATIVE (NEGATIVE); PROTEIN,URINE DIPSTICK NEGATIVE (NEGATIVE); URINE UROBILINOGEN 0.2 mg/dL (0.2 - 1)
--- NOTE | 2018-04-01 11:38 | NUR ---
NOTIFIED DR ADLER BP 189/81, P 62. HYDRALAZINE 10MG IV ONCE ORDERED AT THIS TIME.
[2018-04-01] MEDS ORDERED: HYDRALAZINE HCL 20 MG/ML VIAL IV NR (11:39)
--- NOTE | 2018-04-01 12:39 | Diagnostic Imaging Report ---
EXAM: RENAL ULTRASOUND Date: 04/01/2018 12:00 AM Indication: Comparison: None Technique: Sonographic evaluation of the kidneys. Color doppler was utilized to supplement evaluation. FINDINGS: KIDNEYS: Right: Measures 11.4 cm in length. Moderate to severe hydronephrosis. Renal cortex measures 1.5 cm. Left: Measures 11.5 cm in length. Moderate to severe hydronephrosis. Renal cortex measures 1.1 cm. 0.6 cm echogenic focus suggesting renal calculus. URINARY BLADDER: Thickening of the bladder wall. Bilateral physiologic ureteral jets. OTHER: Prostate measures 3.6 x 4.6 x 4.5 cm. IMPRESSION: Moderate to severe bilateral hydronephrosis. CT could be obtained for further evaluation if indicated. Thickening of the urinary bladder wall, nonspecific. Correlation recommended. Nonobstructing left renal calculus. Signed by: Dr. Anatoliy Delgado MD on 04/01/2018 12:35 PM
[2018-04-01] MEDS ORDERED: LOSARTAN POTAS100 MG PO (13:45)
[2018-04-01] MEDS ORDERED: ONDANSETRON HCL INJ 2 MG/ML VIAL IV PRN (13:45)
[2018-04-01] MEDS ORDERED: METOPROLOL SUCC50 MG PO (13:45)
[2018-04-01] MEDS ORDERED: LASIX40 MG PO (13:45)
[2018-04-01] MEDS ORDERED: DOCUSATE SODIU100 MG PO (13:45)
[2018-04-01] MEDS ORDERED: HYDRALAZINE HCL25 MG PO (13:45)
[2018-04-01] MEDS ORDERED: ACETAMINOPHEN 325 MG TAB PO PRN (13:45)
[2018-04-01] MEDS ORDERED: DOXAZOSIN MESYLA2 MG PO (13:45)
[2018-04-01] MEDS ORDERED: FINASTERIDE5 MG PO (13:45)
[2018-04-01] MEDS ORDERED: TAMSULOSIN HCL0.4 MG PO (13:45)
[2018-04-01] MEDS ORDERED: POTASSIUM CHLO10 ME1 PO (13:45)
[2018-04-01] MEDS ORDERED: HYDRALAZINE HCL 20 MG/ML VIAL IV PRN (13:45)
--- NOTE | 2018-04-01 13:45 | NUR ---
DR DOOLEY AT BEDSIDE FOR PATIENT EVAL. NO SIGNS OF ACUTE DISTRESS NOTED AT THIS TIME.
--- NOTE | 2018-04-01 14:11 | NUR ---
DR GONZALEZ AT BEDSIDE FOR PATIENT EVAL. SPOKE WITH DR GONZALEZ AT BEDSIDE, 16 [place] [place] INSERTION ORDERED AT THIS TIME.
[2018-04-01] MEDS: HYDRALAZINE HCL 25 MG TAB PO SCH ×2 (14:39→20:10)
[2018-04-01] MEDS ORDERED: HYDRALAZINE HCL 25 MG TAB PO SCH (15:00)
[2018-04-01 15:12] LABS: CLARITY,URINE SL CLOUDY (CLEAR); COLOR,URINE YELLOW (YELLOW); LEUKOCYTE ESTERASE ,URINE NEGATIVE (NEGATIVE); NITRITE,URINE NEGATIVE (NEGATIVE); PROTEIN,URINE DIPSTICK NEGATIVE (NEGATIVE)
[2018-04-01 15:13] LABS: BILIRUBIN,URINE NEGATIVE (NEGATIVE); KETONES,URINE NEGATIVE (NEGATIVE); URINE UROBILINOGEN 0.2 mg/dL (0.2 - 1)
[2018-04-01 15:29] LABS: RBC,URINE 21-50 /HPF (0-5)
[2018-04-01 17:00] VITALS: BP 170/77
--- NOTE | 2018-04-01 17:38 | NUR ---
recvd patient, fc in place. currently experiencing apparent bladder spasms or clots with aiken. hematuria. pt states he didnt have blood in urine prior. updated dr boyd, orders to irrigate and pain rx.
[2018-04-01] MEDS ORDERED: BELLADONNA/OPIUM 60 MG SUPP PR PRN (17:45)
[2018-04-01] MEDS ORDERED: BELLADONNA/OPIUM 30 MG SUPP RC PRN (18:00)
--- NOTE | 2018-04-01 19:17 | NUR ---
Report received and walking rounds complete. Pt resting in bed and in no apparent distress. Pt irish speaking. Pt has aiken. Pt family member at bedside. All safety measures ensured, bed alarm on, and pt call lopez near. Pt encouraged to use call lopez for assistance.
[2018-04-01 20:00] VITALS: BP 146/67
[2018-04-01] MEDS: DOXAZOSIN MESYLATE 2 MG TAB PO SCH (20:11)
[2018-04-01] MEDS: TAMSULOSIN HCL 0.4 MG CAP PO SCH (20:11)
--- NOTE | 2018-04-01 20:16 | NUR ---
Pt aiken irrigated and belladonna suppository given for pain/bladder spasms. Pt urine bright red and some clotting. Will continue to monitor pt aiken for clotting and irrigate as needed. Dr. Rome to see the pt.
[2018-04-01 20:24] VITALS: BP 146/67
--- NOTE | 2018-04-01 23:14 | NUR ---
aiken irrigated with 30ml NS. Pt has minimal complaints of pain.
[2018-04-02] VITALS (8 sets, daily range): BP systolic 108–146; BP diastolic 56–70
--- NOTE | 2018-04-02 02:39 | NUR ---
aiken irrigated with 30ml NS. Pt has minimal complaints of pain. Urine still bright red but changes to tea colored at times
[2018-04-02 05:40] LABS: BASOPHILS % 0.4 % (0.0-1.0); EOSINOPHILS # (AUTO) 0.1 (0.0-0.4); EOSINOPHILS % 0.7 % (0.0-6.0); HEMATOCRIT 29.4 % (38.2-49.6); LYMPHOCYTES # (AUTO) 1.4 (1.0-3.2); LYMPHOCYTES % 21.1 % (18.0-39.1); MEAN CORPUSCULAR HEMOGLOBIN 31.3 pg (28-32); MEAN CORPUSCULAR VOLUME 91.9 fL (81-99); MONOCYTES # (AUTO) 0.4 (0.2-0.8); MONOCYTES % 6.4 % (4.4-11.3); NEUTROPHILS # (AUTO) 4.8 (2.1-6.9); NEUTROPHILS % 71.3 % (38.7-80.0); PLATELET COUNT 214 x10e3/uL (140-360); RED CELL DISTRIBUTION WIDTH 13.8 % (11.7-14.4)
[2018-04-02 05:54] LABS: ANION GAP 14.4 mmol/L (8-16); CALCIUM 9.5 mg/dL (8.4-10.2); CREATININE, SERUM 3.45 mg/dL (0.72-1.25); POTASSIUM 3.4 mmol/L (3.5-5.1)
--- NOTE | 2018-04-02 06:11 | NUR ---
aiken irrigated with 30ml NS. Pt has minimal complaints of pain.
--- NOTE | 2018-04-02 07:15 | NUR ---
rounded with the security shift supervisor nurse, patient aware of change, in no distress. Call lopez within reach, bed in lowest position
--- NOTE | 2018-04-02 07:35 | NUR ---
report given to oncoming nurse
[2018-04-02] MEDS: HYDRALAZINE HCL 25 MG TAB PO SCH ×2 (09:45→21:18)
--- NOTE | 2018-04-02 10:49 | NUR ---
CASE MANAGEMENT INITIAL ASSESSMENT Research Mechanic to bedside to discuss plan of care with patient/family. CM/SW role and care transitions discussed. Anticipated discharge plan discussed along with duration of care. CM/SW discussed patients right to make decisions in care. CM/SW work hours given. Patient lives: IN APARTMENT WITH Admit/Transfer: VIA ED FROM HOME POA/Emergency contact: GERARDO [phone] Current/Previous Home Health: NONE PCP/Follow-up Care: ALISE Current/Previous DME: NONE Other Services: NONE Employment Status: [employer] Areas of Concerns: NONE Referral Needs: NONE Education Needs: NONE IMM/LOBO given and signed (if applicable): LOBO Goal for discharge: RETURN HOME INDECENTLY CM/SW left business card at the bedside with contact information. Name and number was also written on the patients whiteboard. Patient verbalized understanding of discussion. CM will follow-up with ongoing discharge and transition of care needs.
--- NOTE | 2018-04-02 12:14 | Diagnostic Imaging Report ---
EXAMINATION: CT of the abdomen and pelvis without contrast. TECHNIQUE: Spiral CT images of the abdomen and pelvis were performed from the lung bases to the lesser trochanters. No intravenous contrast was given per renal stone protocol. Coronal and sagittal reformatted images were obtained. COMPARISON: Renal ultrasound 04/01/2018 CLINICAL HISTORY:Stone protocol, evaluate for hydronephrosis. Evaluate prostate catheter. DISCUSSION: ABSENCE OF INTRAVENOUS CONTRAST DECREASES SENSITIVITY FOR DETECTION OF FOCAL LESIONS AND VASCULAR PATHOLOGY. ABDOMEN/PELVIS: LOWER THORAX: Subsegmental atelectasis in the dependent lower lobes. No pleural or pericardial effusion. HEPATOBILIARY:No focal hepatic lesions. No biliary ductal dilation. The gallbladder is normal. SPLEEN: No splenomegaly. PANCREAS: No focal masses or ductal dilatation. ADRENALS: No adrenal nodules. KIDNEYS/URETERS: Moderate bilateral hydronephrosis without obstructing calculus. No gross renal mass lesion. PELVIC ORGANS/BLADDER: Blair catheter appropriately positioned within the urinary bladder, with air in the nondependent portion of the bladder. Concentric bladder wall thickening. 4.3 cm hyperdense nodule in the urinary bladder with leftward displacement of the retention balloon of the Blair catheter. The prostate measures 4.5 cm transversely. PERITONEUM/RETROPERITONEUM: No ascites. No pneumoperitoneum. LYMPH NODES: No pelvic sidewall, retroperitoneal, or mesenteric lymphadenopathy. VESSELS: Limited evaluation without intravenous contrast. Atherosclerotic calcification of the abdominal aorta without aneurysmal dilatation. GI TRACT: The large bowel shows no evidence of distention or wall thickening. There is no small bowel dilatation to suggest obstruction. BONES AND SOFT TISSUES: Small bilateral fat-containing inguinal hernias area otherwise no focal soft tissue abnormalities. No osseous destructive lesions. Mild degenerative disc changes and facet arthropathy of the lumbar spine. Increased trabeculation along the left symphysis pubis and right iliac wing may indicate intraosseous hemangiomas. IMPRESSION: Moderate bilateral hydronephrosis without obstructing calculus. Concentric bladder wall thickening with a 4 cm hyperdense nodule within the urinary bladder lumen. This may represent a large blood clot, urothelial tumor, or prostatic tumor with bladder extension and results in leftward displacement of the Blair catheter retention balloon. Cystoscopy may be of benefit for further evaluation. Signed by: Dr. Rory Rosado M.D. on 04/02/2018 12:11 PM
[2018-04-02] MEDS: METOPROLOL SUCCINATE 50 MG TAB XL PO SCH (13:50)
[2018-04-02] MEDS ORDERED: POTASSIUM CHLORIDE 20 MEQ TAB CR PO NR (17:25)
--- NOTE | 2018-04-02 19:00 | NUR ---
rounded with the traffic controller cable nurse, patient aware of change, in no distress. call lopez within reach
--- NOTE | 2018-04-02 19:20 | NUR ---
Report received and walking rounds complete. Pt resting in bed and in no apparent distress. Family member at bedside. Pt has aiken and urine starting to clear up. Pt has no complaints of pain. All safety measures ensured, bed alarm on, and pt call lopez near near.
[2018-04-02] MEDS: TAMSULOSIN HCL 0.4 MG CAP PO SCH (21:18)
[2018-04-02] MEDS: DOXAZOSIN MESYLATE 2 MG TAB PO SCH (21:18)
[2018-04-02] MEDS: SODIUM CHLORIDE 0.9% 1000ML 1,000 ML IV SCH (22:47)
[2018-04-03] VITALS (8 sets, daily range): BP systolic 120–158; BP diastolic 60–74
[2018-04-03] MEDS: SODIUM CHLORIDE 0.9% 1000ML 1,000 ML IV SCH ×3 (03:15→23:15)
[2018-04-03 05:43] LABS: BASOPHILS # (AUTO) 0.1 (0.0-0.1); BASOPHILS % 0.8 % (0.0-1.0); EOSINOPHILS # (AUTO) 0.2 (0.0-0.4); EOSINOPHILS % 2.6 % (0.0-6.0); HEMATOCRIT 30.8 % (38.2-49.6); LYMPHOCYTES % 29.8 % (18.0-39.1); MEAN CORPUSCULAR HEMOGLOBIN 30.5 pg (28-32); MEAN CORPUSCULAR HGB CONC 32.5 g/dL (31-35); MEAN CORPUSCULAR VOLUME 93.9 fL (81-99); MONOCYTES # (AUTO) 0.4 (0.2-0.8); MONOCYTES % 6.1 % (4.4-11.3); NEUTROPHILS % 60.5 % (38.7-80.0); PLATELET COUNT 218 x10e3/uL (140-360); RED BLOOD COUNT 3.28 x10e6/uL (4.3-5.7); RED CELL DISTRIBUTION WIDTH 13.7 % (11.7-14.4)
[2018-04-03 06:10] LABS: ALBUMIN 3.4 g/dL (3.5-5.0); ALBUMIN/GLOBULIN RATIO 1.1 (0.8-2.0); ANION GAP 13.5 mmol/L (8-16); CALCIUM 9.1 mg/dL (8.4-10.2); CREATININE, SERUM 3.17 mg/dL (0.72-1.25); POTASSIUM 3.5 mmol/L (3.5-5.1)
--- NOTE | 2018-04-03 07:00 | NUR ---
rounded with the shift supervisor film processing nurse, patient aware of change, in no distress. Call lopez within reach.
--- NOTE | 2018-04-03 07:24 | NUR ---
report given to oncoming nurse
[2018-04-03] MEDS: HYDRALAZINE HCL 25 MG TAB PO SCH ×3 (09:08→21:00)
[2018-04-03] MEDS: METOPROLOL SUCCINATE 50 MG TAB XL PO SCH (09:09)
[2018-04-03 15:39] LABS: ANION GAP 12.2 mmol/L (8-16); CREATININE, SERUM 2.89 mg/dL (0.72-1.25); POTASSIUM 4.2 mmol/L (3.5-5.1)
--- NOTE | 2018-04-03 16:00 | NUR ---
Dr. Bowden making rounds. Report given to staff nurse and patient will be moved to room 289 with all belongings in stable condition.
--- NOTE | 2018-04-03 16:20 | NUR ---
PATIENT ARRIVED TO ROOM 289 AT THIS TIME. HE IS IN STABLE CONDITION, NO ACUTE DISTRESS NOTED. AT BEDSIDE. PATIENT AND ORIENTED TO ROOM, BATHROOM, AND VISITING HOURS. CALL LIGHT WITHIN REACH. BED IN THE LOWEST POSITION.
--- NOTE | 2018-04-03 19:35 | NUR ---
Completed bedside rounds with morning nurse. Pt lying in 45 degrees. Alert to name. Denies pain at this time. No acute distress noted. Family at bedside. Call lopez within reach.
--- NOTE | 2018-04-03 19:48 | NUR ---
REPORT GIVEN TO ONCOMING NURSE. WALKING ROUNDS DONE. PATIENT IS RESTING IN BED. NO ACUTE DISTRESS NOTED. CALL LIGHT WITHIN REACH. BED IN THE LOWEST POSITION. AT BEDSIDE.
[2018-04-03] MEDS: DOXAZOSIN MESYLATE 2 MG TAB PO SCH (21:00)
[2018-04-03] MEDS: TAMSULOSIN HCL 0.4 MG CAP PO SCH (21:00)
[2018-04-04] VITALS (7 sets, daily range): BP systolic 110–131; BP diastolic 55–67
[2018-04-04 07:40] LABS: ALBUMIN 3.2 g/dL (3.5-5.0); ALBUMIN/GLOBULIN RATIO 1.1 (0.8-2.0); ANION GAP 12.4 mmol/L (8-16); CALCIUM 9.1 mg/dL (8.4-10.2); CREATININE, SERUM 2.48 mg/dL (0.72-1.25); POTASSIUM 3.4 mmol/L (3.5-5.1)
[2018-04-04] MEDS: METOPROLOL SUCCINATE 50 MG TAB XL PO SCH (08:32)
[2018-04-04] MEDS: HYDRALAZINE HCL 25 MG TAB PO SCH ×3 (08:32→21:55)
--- NOTE | 2018-04-04 14:33 | Progress Note ---
DATE: COVERING FOR: . SUBJECTIVE: The patient is not having any further hematuria. He still has some trepidation about going home with the Blair bag. He does not complain of any abdominal pain. OBJECTIVE VITAL SIGNS: The patient is afebrile, blood pressure 110/55 and the pulse is 85. Saturation is 95%. HEENT: Shows no facial swelling or erythema. The nasal mucosa is normal. The oropharynx is normal. LYMPHATIC: Shows no submandibular, cervical, or supraclavicular adenopathy. NECK: Examination of the neck shows no JVD or thyromegaly. There is no nuchal rigidity. CARDIAC: Reveals regular rate and rhythm with normal S1 and S2. There are no murmurs or rubs. LUNGS: Auscultation of lungs reveal clear breath sounds bilaterally. There is some wheezing. ABDOMEN: Soft and nontender. There is no rebound or guarding. EXTREMITIES: Examination of the extremities shows no leg edema or calf tenderness. IMPRESSION 1. Hematuria, urinary retention. 2. Zidsi-fw-vgiloxd renal failure. 3. Hypertension. PLAN Continue to monitor renal function. Monitor for any recurrent hematuria. Probable discharge tomorrow. Job#: [id number] ROCIO
[2018-04-04] MEDS ORDERED: POTASSIUM CHLORIDE 20 MEQ TAB CR PO ONE (15:30)
--- NOTE | 2018-04-04 19:24 | NUR ---
Report received and walking rounds complete. Pt resting in bed and in no apparent distress. Pt at bedside. Pt on RA, no tele, and has aiken. All safety measures ensured, bed alarm on, and pt call lopez near. Pt encouraged to use call lopez for assistance.
[2018-04-04] MEDS: TAMSULOSIN HCL 0.4 MG CAP PO SCH (21:55)
[2018-04-04] MEDS: DOXAZOSIN MESYLATE 2 MG TAB PO SCH (21:55)
[2018-04-04] MEDS: SODIUM CHLORIDE 0.9% 1000ML 1,000 ML IV SCH (22:59)
[2018-04-05 00:59] VITALS: BP 126/59
[2018-04-05 05:47] VITALS: BP 134/60
[2018-04-05 06:46] LABS: ANION GAP 11.4 mmol/L (8-16); CALCIUM 9.2 mg/dL (8.4-10.2); CREATININE, SERUM 2.27 mg/dL (0.72-1.25); POTASSIUM 3.4 mmol/L (3.5-5.1)
--- NOTE | 2018-04-05 07:05 | NUR ---
report given to oncoming nurse
--- NOTE | 2018-04-05 07:30 | NUR ---
Received pt in bed with eyes open. Pt is aox4 and able to verbalize needs, but is Slovak speaking. Denies any pain at this time. 0 s/s of acute distress noted. Pt has aiken in place and draining nilay yellow urine. no bleeding noted. Breaths are even and unlabored.
[2018-04-05 08:00] VITALS: BP 132/69
[2018-04-05] MEDS: METOPROLOL SUCCINATE 50 MG TAB XL PO SCH (08:20)
[2018-04-05] MEDS: HYDRALAZINE HCL 25 MG TAB PO SCH (08:20)
[2018-04-05 08:27] VITALS: BP 132/69
--- NOTE | 2018-04-05 11:33 | Discharge Summary ---
DISCHARGE DIAGNOSES 1. Benign prostatic hypertrophy with acute urinary retention. 2. Zlosp-yr-garykob renal failure. 3. Hematuria. 4. Hypertension. CONSULTING PHYSICIANS 1. Dr. Rome and Dr. Warner of urology. 2. Dr. Trevino and Dr. Nix of nephrology. DISCHARGE MEDICATIONS 1. Doxazosin mesylate 2 mg of 2 tablets p.o. q.h.s. 2. Finasteride 5 mg p.o. q.h.s. 3. Hydralazine 25 mg p.o. t.i.d. 4. Losartan 100 mg p.o. daily. 5. Metoprolol 100 mg p.o. daily. 6. Tamsulosin 0.4 mg p.o. daily. RADIOGRAPHIC DATA: CT scan of abdomen and pelvis showed moderate bilateral hydronephrosis without obstructing calculi through his concentric bladder wall thickening as well as hyperdense nodule in the bladder lumen suggestive of a blood clot. Renal ultrasound showed ifciqyri-di-mjiqbr bilateral hydronephrosis. There is a nonobstructing left renal calculus. HISTORY OF PRESENT ILLNESS: The patient is a 72-year-old man. He came to the hospital directly from Dr. Hand's office with increased blood pressure and still has difficulty urinating and some bilateral flank pain. HOSPITAL COURSE: He was admitted and found to have urinary retention. A Blair was placed and he had subsequent hematuria. Hematuria improved with time and his creatinine gradually improved. The patient was seen by urology and started on Flomax. They recommended a Blair catheter at home temporarily. He will need a followup for a cystoscopy and possible transurethral prostate resection. DISPOSITION: Patient was discharged home. He has no further hematuria and his creatinine is improving. VINCENT ROSAS MD Job#: [id number] KAROL cc:GEREMIAS HAND MD DR.
--- NOTE | 2018-04-05 12:55 | NUR ---
Pt discharged at this time. Pt is aox4 at time of discharge, denies any pain at this time. Pt and spouse were educated on aiken care at home. Pt and spouse demonstrated proper technique. Educated patient and spouse on importance of follow with urology and primary care physician.
== END 2018-04-05 12:55 | disposition home or self-care (01) | DRG 726 ==
LOC: ER 09:20 → ERHOLD 11:46 → IMCU 16:02 → OBSVTOIN 04-02 08:52 → MED/SURG3 04-03 16:15
PROVIDERS: ADMIT Internal Medicine; ATTEND Internal Medicine
DX: N40.1 Benign prostatic hyperplasia with lower urinary tract symptoms (principal); N17.9 Acute kidney failure, unspecified; N13.30 Unspecified hydronephrosis; R33.8 Other retention of urine; R31.9 Hematuria, unspecified; I12.9 Hypertensive chronic kidney disease with stage 1 through stage 4 chronic kidney disease, or unspecified chronic kidney disease; N18.9 Chronic kidney disease, unspecified
CPT/HCPCS: 36415; 51700; 74176; 76770; 80048; 80053; 81001; 82550; 82553; 84484; 85025; 87086; 93005; 96361; 99284; G0378; J0360; J7030

== ENCOUNTER 2018-06-05 10:30 | Inpatient (IN) | payer MEDICARE ==
[2018-06-03 12:54] LABS: BASOPHILS # (AUTO) 0.1 (0.0-0.1); BASOPHILS % 0.9 % (0.0-1.0); EOSINOPHILS # (AUTO) 0.1 (0.0-0.4); EOSINOPHILS % 2.2 % (0.0-6.0); HEMATOCRIT 36.8 % (38.2-49.6); HEMOGLOBIN 12.4 g/dL (14.0-18.0); LYMPHOCYTES # (AUTO) 1.6 (1.0-3.2); LYMPHOCYTES % 28.8 % (18.0-39.1); MEAN CORPUSCULAR HEMOGLOBIN 31.7 pg (28-32); MEAN CORPUSCULAR HGB CONC 33.7 g/dL (31-35); MEAN CORPUSCULAR VOLUME 94.1 fL (81-99); MONOCYTES # (AUTO) 0.4 (0.2-0.8); MONOCYTES % 7.4 % (4.4-11.3); NEUTROPHILS # (AUTO) 3.2 (2.1-6.9); NEUTROPHILS % 60.1 % (38.7-80.0); PLATELET COUNT 255 x10e3/uL (140-360); RED BLOOD COUNT 3.91 x10e6/uL (4.3-5.7); RED CELL DISTRIBUTION WIDTH 14.6 % (11.7-14.4)
--- NOTE | 2018-06-03 13:14 | Diagnostic Imaging Report ---
EXAM: CHEST 2 VIEWS, PA and lateral DATE: 06/03/2018 Time stamp on exam: 12:48 PM INDICATION: Preoperative COMPARISON: None FINDINGS: LINES/TUBES: None LUNGS: No consolidations or edema. PLEURA: No effusions or pneumothorax. HEART AND MEDIASTINUM: Normal size and contour. BONES AND SOFT TISSUES: No acute findings with mild degenerative changes of the spine. IMPRESSION: No acute thoracic abnormality. Signed by: Dr. Cornel Avilez DO on 06/03/2018 1:11 PM
[2018-06-03 14:23] LABS: ANION GAP 12.8 mmol/L (8-16); BLOOD UREA NITROGEN 14 mg/dL (7-26); BUN/CREATININE RATIO 12 (6-25); CALCIUM 9.8 mg/dL (8.4-10.2); CARBON DIOXIDE 27 mmol/L (22-29); CHLORIDE 102 mmol/L (98-107); CREATININE, SERUM 1.15 mg/dL (0.72-1.25); EST GLOMERULAR FILTRATION RATE > 60 ML/MIN (60-); GLUCOSE 101 mg/dL (74-118); POTASSIUM 3.8 mmol/L (3.5-5.1); SODIUM 138 mmol/L (136-145)
[~2018-06-05] VITALS: Ht 177.8 cm; Wt 81.6 kg
[~2018-06-05 10:30] MED LIST changes: -FUROSEMIDE INJ 10 MG/ML 4 ML VIAL ONE
[2018-06-05] MEDS ORDERED: CEFTRIAXONE SOD 1 GM/NS 50 ML 50 ML IV ONE (11:24)
[2018-06-05] MEDS ORDERED: GENTAMICIN 80MG/NS 100 ML 200 ML IV ONE (11:25)
[2018-06-05] MEDS ORDERED: HYDRALAZINE HCL 20 MG/ML VIAL ONE (13:23)
[2018-06-05] MEDS ORDERED: LIDOCAINE HCL 2% LOCAL INJ 5 ML SDV VIAL INJ ONE (13:50)
[2018-06-05] MEDS ORDERED: ONDANSETRON HCL INJ 2MG/ML 2ML 2 MG/ML VIAL ONE (13:50)
[2018-06-05] MEDS ORDERED: DEXAMETHASONE SOD PHOS INJ 4 MG/ML VIAL ONE (13:50)
[2018-06-05] MEDS ORDERED: DESFLURANE 240 ML BTL INH ONE (13:50)
[2018-06-05] MEDS ORDERED: PROPOFOL IV EMULSION 10 MG/ML 20 ML VIAL ONE (13:50)
[2018-06-05] MEDS ORDERED: BELLADONNA/OPIUM 30 MG SUPP RC ONE (14:07)
[2018-06-05] MEDS ORDERED: IOPAMIDOL 610MG/1ML 300 MG/ML VIAL IV ONE (14:07)
[2018-06-05] MEDS ORDERED: FENTANYL CITRATE/PF 100MCG/2 ML INJ ONE (15:09)
[2018-06-05] MEDS ORDERED: MIDAZOLAM HCL 2 MG/2 ML VIAL ONE (15:09)
[2018-06-05] MEDS ORDERED: HYDROMORPHONE 2MG/ML 2 MG/ML ML ONE (16:58)
[2018-06-05 19:55] VITALS: BP 132/64
--- NOTE | 2018-06-05 19:55 | NUR ---
PATIENT RECEIVED FROM RECOVERY PER STRETCHER AT 1920. HE'S ALERT AND ORIENTED X3, NO RESPIRATORY DISTRESS OBSERVED. 3-WAY BAUTISTA CATHETER WITH CONTINUOUS BLADDER IRRIGATION INFUSING, URINE BLOODY. PATIENT DENIES PAIN, SMALL AMOUNT OF BLOOD NOTED TO THE PENIS. PATIENT ORIENTED TO SURROUNDINGS, CALL LIGHT WITHIN EASY REACH.
[2018-06-05 20:00] VITALS: BP 132/64
[2018-06-05] MEDS ORDERED: BELLADONNA/OPIUM 30 MG SUPP RC PRN (20:15)
[2018-06-05] MEDS: LEVOFLOXACIN 500 MG TAB PO SCH (20:35)
--- NOTE | 2018-06-05 22:30 | NUR ---
PATIENT IS ASLEEP, HE'S EASY TO AROUSE. NO ACUTE DISTRESS OBSERVED, HE DENIES PAIN AT THIS TIME. CALL LIGHT WITHIN EASY REACH, INSTRUCTED TO CALL FOR ASSISTANCE NEEDED.
[2018-06-05] MEDS: ACETAMINOPHEN/CODEINE 300MG - 30MG TAB PO PRN (23:01)
[2018-06-06] VITALS (7 sets, daily range): BP systolic 108–151; BP diastolic 55–74
--- NOTE | 2018-06-06 03:01 | NUR ---
BAUTISTA CATHETER MANUALLY IRRIGATED, MODERATE AMOUNT OF CLOTS NOTED. CONTINUOUS BLADDER INFUSING WITH URINE COLOR REMAINS BLOODY, NO RESPIRATORY DISTRESS OBSERVED, PATIENT C/O OCCASIONAL PAIN TO THE PENIS.
--- NOTE | 2018-06-06 07:25 | NUR ---
Received patient and walking rounds complete. Patient awake at this time, no signs of distress. Family at bedside, call light in reach. Will continue to monitor.
[2018-06-06] MEDS: DOCUSATE SODIUM 100 MG CAP PO SCH ×2 (09:31→17:43)
--- NOTE | 2018-06-06 10:15 | NUR ---
Patient A/O X3, even respirations on RA. Primarily Polish speaking with spouse at bedside. Bowel sounds active, skin intact, no edema. Tylenol for pain as needed Q4. Right 20 gauge FA IV SL. Blair in place with CBI. Call light in reach, will continue to monitor.
[2018-06-06] MEDS: ACETAMINOPHEN/CODEINE 300MG - 30MG TAB PO PRN ×2 (10:23→14:13)
[2018-06-06] MEDS ORDERED: DOCUSATE SODIUM 100 MG CAP PO SCH (17:00)
--- NOTE | 2018-06-06 17:56 | NUR ---
[facility] [id number]
--- NOTE | 2018-06-06 19:00 | NUR ---
Report received and rounds completed, no complaints or concerns at this time. Lying in bed watching TV with family at bedside.
--- NOTE | 2018-06-06 19:50 | NUR ---
CONTINUOUS BLADDER IRRIGATION INFUSING, URINE BLOODY WITH SOME CLOTS NOTED IN THE DRAINAGE BAG. PATIENT DENIES PAIN, CALL LIGHT WITHIN EASY REACH, INSTRUCTED TO CALL FOR ASSISTANCE NEEDED.
[2018-06-06] MEDS: LEVOFLOXACIN 500 MG TAB PO SCH (20:55)
[2018-06-07] VITALS (8 sets, daily range): BP systolic 100–146; BP diastolic 51–80
--- NOTE | 2018-06-07 | NUR ---
CBI flowing, aiken remains patent with light nilay urine with small clots. Tolerating well. No c/o or concerns at this time. at bedside
--- NOTE | 2018-06-07 02:01 | History and Physical ---
PRIMARY CARE DOCTOR: Dr. Cali Hand. UROLOGIST: Dr. Rome. HISTORY OF PRESENT ILLNESS: Mr. Blanco is a pleasant 72-year-old gentleman with postoperative state. The patient with history of voiding with difficulty. He is catheter dependent to urinate. He is always incompletely emptied. Blair was placed on April 02, 2018. CT of pelvis on April 02, 2018, shows 4.3 cm hyperdense nodule within the urinary bladder lumen, moderate bilateral hydronephrosis without obstructing calculus. He has been diagnosed with enlarged prostate and he has been on alpha-gerri medication, Flomax and Cardura and on 3-drfos-uchdtuidx, Proscar medication. PSA was 2.2. The patient was elected as PSMA by transurethral resection of prostate. On June 05, 2018, the patient underwent the TURP and cystoscopy with retrograde pyelogram. The patient had excess blood clots in Blair towards the end of procedure and was recommend for more observation in the hospital afterwards. Currently, he is getting irrigation of the bladder as well as intermittent flushing of the Blair catheter manually. MEDICATIONS: Medication list reviewed per outpatient record. ALLERGIES: NO KNOWN DRUG ALLERGIES. SOCIAL HISTORY: Ethnicity is and he is white. He is a former smoker. No alcohol. No drugs. 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 FAMILY HISTORY: Noncontributory. PAST MEDICAL HISTORY: Includes hypertension, GERD, cataract surgery, colonoscopy, and EGD. REVIEW OF SYSTEMS: GENERAL: No weight changes. OPHTHALMALGIC: No double vision. ENT: No dry mouth. ENDOCRINE: No thyroid disease known. PULMONARY: No asthma. CARDIAC: No heart attack. GI: No constipation. : No blood in the urine prior to surgery. MUSCULOSKELETAL: arthritis. NEUROLOGIC: No seizures. DERMATOLOGIC: No rashes. OBJECTIVE: VITAL SIGNS: Afebrile, vital signs noted and reviewed per the chart record. GENERAL: In no acute distress, alert and calm in bed. Irrigation of Blair being done. HEENT: Normocephalic, atraumatic. NECK: Supple. Throat midline. LUNGS: Bilateral air entry, clear. CARDIOVASCULAR: S1 and S2. No murmurs, rubs, or gallops. ABDOMEN: Soft and nontender. EXTREMITIES: No clubbing. No cyanosis. There is no edema. INTEGUMENT: No rash. No purpura. LABORATORY DATA: BUN 14 and creatinine 1.1. White count 5, hematocrit 37, and platelets 255. Chest x-ray recently was clear in the lungs. IMPRESSION AND PLAN: 1. Benign prostatic hypertrophy. 2. History of urinary retention. 3. Very mild chronic renal failure. 4. Hypertension. 5. Gastroesophageal reflux disease. At this time, continue irrigating the Blair. Flush Blair as well. Continue to control blood pressure. Mobilize the patient as possible. Possible discharge soon if the blood clots dissipate. MD JOEY Jnekins/JOSE FRANCISCO /[id number]
[2018-06-07] MEDS: ACETAMINOPHEN/CODEINE 300MG - 30MG TAB PO PRN ×3 (05:16→13:44)
--- NOTE | 2018-06-07 05:24 | NUR ---
Tape securing aiken cath reinforced and aiken care performed, tolerated well. CBI flowing noted light nilay with clots in tube, no obstructions or complaints. Will continue to monitor.
--- NOTE | 2018-06-07 07:37 | NUR ---
Received patient and walking rounds complete. Patient asleep at this time, no signs of distress. Call light in reach, will continue to monitor.
[2018-06-07] MEDS: DOCUSATE SODIUM 100 MG CAP PO SCH ×2 (08:23→16:33)
[2018-06-07] MEDS: METOPROLOL SUCCINATE 50 MG TAB XL PO SCH (08:24)
[2018-06-07] MEDS: LOSARTAN POTASSIUM 100 MG TAB PO SCH (08:24)
--- NOTE | 2018-06-07 09:00 | NUR ---
Patient A/O X3, even respirations on RA. Bowel sounds active, skin intact no edema. Patient is ambulatory with standby assist. Right FA 20 gauge IV SL. Blair in place with pale pink urine. Tylenol 3 given for pain. Will continue to monitor. Call light in reach.
--- NOTE | 2018-06-07 10:00 | NUR ---
Verbal order to stop CBI and monitor urine color.
[2018-06-07] MEDS ORDERED: MAGNESIUM/ALUMINUM/SIMETHICONE 30 ML UDC PO PRN (13:30)
--- NOTE | 2018-06-07 15:57 | NUR ---
Patient ambulating in hallway at this time, steady gait.
--- NOTE | 2018-06-07 17:39 | Progress Note ---
DATE: 06/07/2018 Internal Medicine Progress Note This is coverage for Dr. Ba Luke. SUBJECTIVE: Mr. Blanco was seen and examined at bedside. His urine and flush output was much clearer yesterday on irrigation. No large clots are noted. Eating well. No bowel movements. Still some pain. The pain is in the lower pelvis. REVIEW OF SYSTEMS: No chest pain, no rash. OBJECTIVE: VITAL SIGNS: Afebrile, vital signs noted per the chart record. GENERAL: No distress, alert and calm in bed. HEENT: Normocephalic, atraumatic. NECK: Supple. Throat midline. LUNGS: Bilateral air entry, clear. CARDIOVASCULAR: S1, S2. No murmurs, rubs, or gallops. ABDOMEN: Soft, nontender. EXTREMITIES: No clubbing, no cyanosis, no edema. INTEGUMENT: No rash. No purpura. LABORATORY DATA: BUN 14 and creatinine 1.1 on the . IMPRESSION AND PLAN: 1. Benign prostatic hypertrophy. 2. Postoperative stay, status post transurethral resection of prostate and cystoscopy with retrograde pyelogram. 3. Postoperative expected hematuria. 4. History of urinary retention. 5. Very mild chronic kidney disease. 6. Hypertension. 7. Gastroesophageal reflux disease, symptomatic here. The irrigation was stopped on the Blair. We will see how the blood content is after stopping the flushing. If blood clears out, possibly patient can go home soon. Continue to control blood pressure. Holding blood thinners for now. MD JOEY Jenkins/JOSE FRANCISCO /[id number]
--- NOTE | 2018-06-07 20:20 | NUR ---
CONDITION STABLE WITHOUT ACUTE DISTRESS, HE DENIES PAIN. BAUTISTA CATHETER INTACT, URINE COLOR REMAINS BLOODY. CALL LIGHT WITHIN EASY REACH, INSTRUCTED TO CALL FOR ASSISTANCE NEEDED.
[2018-06-07] MEDS: LEVOFLOXACIN 500 MG TAB PO SCH (20:40)
[2018-06-08] VITALS (7 sets, daily range): BP systolic 100–136; BP diastolic 52–62
--- NOTE | 2018-06-08 01:24 | NUR ---
WALKING ROUNDS MADE, PATIENT IS SOUNDLY ASLEEP WITHOUT RESPIRATORY DISTRESS, HIS IS SITTING AT THE BEDSIDE.
[2018-06-08] MEDS: ACETAMINOPHEN/CODEINE 300MG - 30MG TAB PO PRN (03:55)
--- NOTE | 2018-06-08 04:04 | NUR ---
BAUTISTA CATHETER MANUALLY IRRIGATED ORDERED, SMALL AMOUNT OF CLOTS NOTED. PATIENT C/O PAIN TO THE PENIS WITH PAIN SCORE #4, MEDICATED WITH TYLENOL #3 ORDERED. CALL LIGHT WITHIN EASY REACH, INSTRUCTED TO CALL FOR ASSISTANCE NEEDED.
[2018-06-08] MEDS: DOCUSATE SODIUM 100 MG CAP PO SCH ×2 (08:34→16:11)
[2018-06-08] MEDS: METOPROLOL SUCCINATE 50 MG TAB XL PO SCH (08:34)
[2018-06-08] MEDS: LOSARTAN POTASSIUM 100 MG TAB PO SCH (08:34)
[2018-06-08] MEDS ORDERED: BISACODYL 10 MG SUPP PR PRN (09:00)
[2018-06-08 09:12] LABS: BASOPHILS # (AUTO) 0.1 (0.0-0.1); BASOPHILS % 0.5 % (0.0-1.0); EOSINOPHILS # (AUTO) 0.1 (0.0-0.4); EOSINOPHILS % 0.5 % (0.0-6.0); HEMOGLOBIN 12.3 g/dL (14.0-18.0); LYMPHOCYTES # (AUTO) 2.2 (1.0-3.2); MEAN CORPUSCULAR HEMOGLOBIN 31.9 pg (28-32); MEAN CORPUSCULAR HGB CONC 33.2 g/dL (31-35); MEAN CORPUSCULAR VOLUME 95.9 fL (81-99); MONOCYTES % 9.3 % (4.4-11.3); NEUTROPHILS # (AUTO) 7.6 (2.1-6.9); NEUTROPHILS % 69.3 % (38.7-80.0); PLATELET COUNT 230 x10e3/uL (140-360); RED BLOOD COUNT 3.86 x10e6/uL (4.3-5.7); RED CELL DISTRIBUTION WIDTH 14.2 % (11.7-14.4)
[2018-06-08] MEDS ORDERED: BISACODYL 10 MG SUPP PR ONE (09:30)
[2018-06-08 09:38] LABS: ANION GAP 9.5 mmol/L (8-16); CALCIUM 9.9 mg/dL (8.4-10.2); CREATININE, SERUM 1.37 mg/dL (0.72-1.25); POTASSIUM 3.5 mmol/L (3.5-5.1)
--- NOTE | 2018-06-08 12:26 | NUR ---
NOTIFIED DR. Mike JUAREZ PT HAD BM AND WITH BAUITSTA CATHETER IRRIGATION NOTED URINE TO BE SLIGHTLY PINK AND APPEARS TO GET DARKER AFTER IRRIGATION. PT C/O PAIN WHEN IRRIGATION SYRINGE IS DRAWN BACK. PER DR. Mike JUAREZ DO NOT D/C BAUTISTA TODAY. WILL POSSIBLY D/C BAUTISTA TOMORROW CONTINUE TO MONITOR URINE TODAY.
--- NOTE | 2018-06-08 12:52 | NUR ---
IMM EXPLAINED TO PT IN [place] USING SBA BUSINESS DEVELOPMENT OFFICER, SIGNED BY PT AND PLACED IN CHART COPY IN PT'S CARE TRANSITION FOLDER
--- NOTE | 2018-06-08 14:25 | NUR ---
CASE MANAGEMENT ASSESSMENT Nurse Charge Rn to bedside to discuss plan of care with patient/family. CM/SW role and care transitions discussed. Anticipated discharge plan discussed along with duration of care. CM/SW discussed patients right to make decisions in care. CM/SW work hours given. Patient lives: with Iesha Admit/Transfer: from PACU Hospital/ER visits since last admit: March 2018, 1 ED visit since then POA/Emergency contact: Iesha Perez [phone] Current/Previous Home Health: none PCP/Follow-up Care: Dr. Hand; CM advised pt to follow up with MD within 7 days of discharge Current/Previous DME: none Medications (referring to index hospitalization or the first time you were in the hospital) a. Were changes made in your medications when you were in the hospital in Mar 2018? pt states no changes b. Did you understand the changes? n/a c. Were you able to obtain your new medications right away? n/a d. Were you able to take your medications like the doctor wanted you to? n/a e. Did the hospital give you an accurate, easy to understand list of medications when you left? n/a Scale of 1-10 how comfortable does patient feel with disease management in outpatient settin Other Services: none Employment Status: employed at [employer] Areas of Concerns: none Referral Needs: none at this time Education Needs: medical management IMM/LOBO given and signed (if applicable): IMM given earlier Goal for discharge: home CM/SW left business card at the bedside with contact information. Name and number was also written on the patients whiteboard. Patient verbalized understanding of discussion. CM will follow-up with ongoing discharge and transition of care needs.
[2018-06-08] MEDS ORDERED: ACETAMINOPHEN 325 MG TAB PO PRN (16:30)
--- NOTE | 2018-06-08 18:46 | NUR ---
Pt received from [facility] via wheelchair. Oriented to staff and surroundings. Call lopez within reach. Will monitor
--- NOTE | 2018-06-08 19:15 | NUR ---
Report received from morning nurse. Pt alert and orient to name. Pt lying in bed HOB 45 degrees. Denies pain at this time. No acute distress noted. Family at bedside. Call lopez within reach. Will continue to monitor.
[2018-06-08] MEDS: LEVOFLOXACIN 500 MG TAB PO SCH (21:00)
[2018-06-09] VITALS: BP 108/59
--- NOTE | 2018-06-09 00:15 | NUR ---
Performed bladder irrigation. Red hematuria throughout urine, urine output 60ml without clots. Pt tolerated well.
[2018-06-09 04:00] VITALS: BP 110/58
[2018-06-09 06:07] LABS: BASOPHILS # (AUTO) 0.1 (0.0-0.1); BASOPHILS % 0.6 % (0.0-1.0); EOSINOPHILS # (AUTO) 0.1 (0.0-0.4); EOSINOPHILS % 1.7 % (0.0-6.0); HEMATOCRIT 33.6 % (38.2-49.6); LYMPHOCYTES # (AUTO) 1.8 (1.0-3.2); LYMPHOCYTES % 21.3 % (18.0-39.1); MEAN CORPUSCULAR HEMOGLOBIN 31.6 pg (28-32); MEAN CORPUSCULAR HGB CONC 32.7 g/dL (31-35); MEAN CORPUSCULAR VOLUME 96.6 fL (81-99); MONOCYTES # (AUTO) 0.7 (0.2-0.8); MONOCYTES % 8.7 % (4.4-11.3); NEUTROPHILS # (AUTO) 5.5 (2.1-6.9); NEUTROPHILS % 67.3 % (38.7-80.0); PLATELET COUNT 223 x10e3/uL (140-360); RED BLOOD COUNT 3.48 x10e6/uL (4.3-5.7); RED CELL DISTRIBUTION WIDTH 13.8 % (11.7-14.4)
--- NOTE | 2018-06-09 06:15 | NUR ---
Performed bladder irrigation. Red hematuria throughout urine, urine output 60ml without clots. Pt tolerated well.
[2018-06-09 06:33] LABS: ANION GAP 9.2 mmol/L (8-16); CALCIUM 9.7 mg/dL (8.4-10.2); CREATININE, SERUM 1.29 mg/dL (0.72-1.25); POTASSIUM 4.2 mmol/L (3.5-5.1)
[2018-06-09 08:06] VITALS: BP 124/63
[2018-06-09] MEDS: DOCUSATE SODIUM 100 MG CAP PO SCH ×2 (08:57→16:23)
[2018-06-09] MEDS: LOSARTAN POTASSIUM 100 MG TAB PO SCH (08:57)
[2018-06-09] MEDS: ACETAMINOPHEN/CODEINE 300MG - 30MG TAB PO PRN (08:58)
[2018-06-09] MEDS: METOPROLOL SUCCINATE 50 MG TAB XL PO SCH (08:58)
[2018-06-09 09:00] VITALS: BP 124/63
--- NOTE | 2018-06-09 09:00 | NUR ---
Pt received resting in bed. Alert and oriented x4. Blair draining clear red urine. Oriented to staff and surroundings. Encouraged to press call lopez if help needed. Emotional support given. Will monitor
--- NOTE | 2018-06-09 10:00 | NUR ---
60ML balloon deflated from Blair cath. Educated pt on Serial urine. Emotional support given. Will monitor
[2018-06-09 12:08] VITALS: BP 126/62
--- NOTE | 2018-06-09 12:30 | NUR ---
Pt urinated, and urine cup placed on window seal as instructed by Dr. Vega. Urine is clear red in color. Emotional support given. Will monitor
[2018-06-09 15:57] VITALS: BP 113/58
[2018-06-09] MEDS ORDERED: TYLENOL WITH C1 EACH PO (16:08)
[2018-06-09] MEDS ORDERED: LEVAQUIN500 MG PO (16:09)
--- NOTE | 2018-06-09 16:26 | NUR ---
Pt and given discharge instructions regarding meds, diet, activities, and follow up appointment with PCP and Dr. Vega with aid of turret lathe set up operator. Both verbalized understanding of teaching. Pt wants to have dinner before going home
--- NOTE | 2018-06-09 17:57 | NUR ---
Pt left with all belongings
--- NOTE | 2018-06-15 10:37 | Operative Report ---
DATE OF PROCEDURE: 06/05/2018 SURGEON: Alberto Rome MD PREOPERATIVE DIAGNOSES: 1. Obstructive benign prostatic hypertrophy. 2. Urinary tract infections. POSTOPERATIVE DIAGNOSES: 1. Obstructive benign prostatic hypertrophy. 2. Urinary tract infections. OPERATIONS PERFORMED: 1. Cystourethroscopy with bilateral ureteral catheterization and retrograde ureteropyelography (separate procedure performed for the urinary tract infections). 2. Interpretation of retrograde ureteropyelography. 3. Supervision of fluoroscopy, no radiologist was present. 4. Complicated extensive and long cystourethroscopy with transurethral resection of the prostate utilizing a plasma button electrode (separate procedure performed for the very large benign prostatic hypertrophy). ANESTHESIA: General. COMPLICATIONS: None. CLINICAL SUMMARY: Taz Blanco is a 72-year-old man with urinary retention. He has a chronic Blair catheter in place. He had bilateral hydronephrosis when he had acute renal failure with urinary retention. Urodynamic study revealed a very high-pressure low-flow bladder. He is brought to the operating room for the above procedure. He is aware of the risks of bleeding, infection, injury to adjacent structures, incontinence, impotence, retrograde ejaculation. He elected to proceed. OPERATIVE PROCEDURE IN DETAIL: Informed consent was verified. Taz Blanco was preoperatively identified, taken to the operating room, placed on the cystoscopy table in supine position. Anesthesia was uneventfully begun. The patient was then carefully gently repositioned in dorsal lithotomy position with all pressure points well padded. His genitalia were prepared and draped in usual sterile fashion. A 22.5-Barbadian cystoscope sheath with visual obturator in place was atraumatically inserted into the patient's urethra. It was guided unremarkably through the prostate bed, was significant for visually obstructing BPH with trilobar prostatic hypertrophy. This exhibited kissing lateral lobes and a very prominent intravesical median lobe. Panendoscopy of urinary bladder revealed severe trabeculations with diffuse cellule formation and diverticulum at the dome of the bladder. No suspicious mucosal lesions or stones were identified. An 8-Barbadian catheter was used to cannulate each ureter and retrograde ureteropyelogram was performed. Interpretation of Retrograde Ureteropyelography: Contrast was instilled in a retrograde fashion bilaterally. Severe J hooking was noted as well as displacement of the ureteral orifices from the large prostate. Nevertheless, there were no tumors, no stones and no diverticula. Unobstructed drainage was observed bilaterally fluoroscopically. The resectoscope was then placed. We utilized the plasma button electrode to perform transurethral resection. First, we eliminated the median lobe. This was a rather significant job due to the fact that the median lobe was extremely prominent. We then worked on both the lateral lobes from the bladder neck, but never passed the verumontanum and down the surgical capsule. This was a very long, very extensive resection procedure, but eventually we accomplished our goal and opened a very wide open prostatic urethra. Excellent hemostasis was achieved. The resectoscope was withdrawn. The Blair catheter was placed. It was placed on continuous irrigation. The patient was uneventfully reversed from anesthesia and taken to recovery room in stable condition. There were no complications of procedure. The patient tolerated the procedure well. We will proceed with routine postoperative care and of course lifelong urological followup. Belladonna and opium suppository was placed revealing a larger than 40 g prostate that was smooth, nonfluctuant without any nodules. Alberto Rome MD [place]/MODL /[id number] cc: Cali Hand
== END 2018-06-09 17:46 | disposition home or self-care (01) | DRG 713 ==
LOC: OR 10:30 → MED/SURG 18:51 → MED/SURG3 06-08 18:02
PROVIDERS: ADMIT Internal Medicine; ATTEND Internal Medicine
PROC: 0T788ZZ Dilation of Bilateral Ureters, Via Natural or Artificial Opening Endoscopic (ICD-10-PCS; 2018-06-05)
PROC: BT141ZZ Fluoroscopy of Kidneys, Ureters and Bladder using Low Osmolar Contrast (ICD-10-PCS; 2018-06-05)
PROC: 0VT08ZZ Resection of Prostate, Via Natural or Artificial Opening Endoscopic (ICD-10-PCS; principal; 2018-06-05 13:30)
PROC: 0V508ZZ Destruction of Prostate, Via Natural or Artificial Opening Endoscopic (ICD-10-PCS; 2018-06-05 13:30)
DX: N40.1 Benign prostatic hyperplasia with lower urinary tract symptoms (principal); N13.8 Other obstructive and reflux uropathy; R33.8 Other retention of urine; R39.14 Feeling of incomplete bladder emptying; K21.9 Gastro-esophageal reflux disease without esophagitis; R31.9 Hematuria, unspecified; D64.9 Anemia, unspecified; I12.9 Hypertensive chronic kidney disease with stage 1 through stage 4 chronic kidney disease, or unspecified chronic kidney disease; N18.9 Chronic kidney disease, unspecified; K59.00 Constipation, unspecified
CPT/HCPCS: 36415; 71046; 74420; 80048; 85025; J0360; J0696; J1100; J1580; J2001; J2250; J2405

== ENCOUNTER → 2018-06-22 | Outpatient (CLI) | payer MEDICARE ==
[~2018-06-22] MED LIST changes: +LEVAQUIN500 MG PO; +TYLENOL WITH C1 EACH PO
== END ==
LOC: US 12:00
PROVIDERS: ATTEND Family Medicine
DX: N64.4 Mastodynia (principal)
CPT/HCPCS: 77066

== ENCOUNTER → 2018-07-09 | Outpatient (CLI) | payer MEDICARE ==
--- NOTE | 2018-07-10 08:57 | Diagnostic Imaging Report ---
#[id number] - [id number] ULTRASOUND GUIDED BIOPSY: 07/09/2018 PATIENT CONSENT: According to [facility] requirements, a time out was performed, correct site was localized and the patient was consented. PROCEDURE DESCRIPTION: Using full barrier sterile technique, 1% Lidocaine local anesthesia, and real time ultrasound guidance, the mass in the retroareolar region of the left breast was biopsied using a 14 ga core device. A total of 4 core biopsies were obtained. Specimens were submitted for histology. A micromarker was placed at the biopsy site for future reference. A sterile bandage was applied at the entry site. The patient was sent for a post biopsy mammogram with no immediate complications noted. Correlation is made to exams dated: 06/22/2018 mammogram and 06/22/2018 ultrasound - [facility]. IMPRESSION: ULTRASOUND GUIDED BIOPSY Follow-up with ACR/ACS guidelines. Cornel weber/stormy:07/09/2018 14:13:37 Music Internship: Benjamin Liu RDMS, [facility] [id number]
--- NOTE | 2018-07-10 08:57 | Diagnostic Imaging Report ---
#[id number] - [id number] #MALE UNILATERAL LEFT DIGITAL DIAGNOSTIC MAMMOGRAM POST-PROCEDURE IMAGING FOR MARKER PLACEMENT: 07/09/2018 Comparison is made to exams dated: 07/09/2018 ultrasound biopsy and 06/22/2018 mammogram - [facility]. Current study contains 2 films. The subareolar density is again noted. Biopsy clip is anterior to the tissue, having migrated away from the biopsy site. No significant masses, calcifications, or other findings are seen in the breast. IMPRESSION: SUSPICIOUS OF MALIGNANCY Follow-up after the biopsy. Follow-up with ACR/ACS guidelines. Cornel [place] Jr. Becerra cw/:07/09/2018 14:36:35 Seam Taper Machine: Sherice MCNEIL)(M), [facility] Mammogram BI-RADS: 4b Suspicious abnormality - intermediate suspicion of malignancy
== END ==
LOC: US 07:28
PROVIDERS: ATTEND Family Medicine
DX: N64.89 Other specified disorders of breast (principal)
CPT/HCPCS: 88305

== ENCOUNTER → 2018-08-10 | Outpatient (CLI) | payer MEDICARE ==
--- NOTE | 2018-08-10 09:35 | Diagnostic Imaging Report ---
Exam: Bilateral hand series 3 views each dated 08/10/2018 History: Pain Comparison: None available Findings: There are metallic densities present within the soft tissues of the left hand overlying the proximal fifth, proximal first metacarpal and distal portion of the proximal phalanx of the fourth digit. Posttraumatic irregularity of the distal phalanx of the third digit on the left is present. There is also posttraumatic degenerative change of the distal aspect of the left first metacarpal. No acute bony abnormality is seen. There are no erosions or soft tissue calcifications. Impression: No acute bony abnormality or erosive changes. Metallic densities as described above on the left hand. Signed by: Dr. Cornel Avilez DO on 08/10/2018 9:31 AM
== END ==
LOC: RAD 07:51
PROVIDERS: ATTEND Family Medicine
DX: M79.642 Pain in left hand (principal); M79.641 Pain in right hand

== ENCOUNTER → 2018-10-29 | Outpatient (CLI) | payer MEDICARE ==
--- NOTE | 2018-10-29 08:52 | Diagnostic Imaging Report ---
EXAM: Renal Ultrasound INDICATION: ^HYDRONEPHROSIS / CHRONIC KIDNEY DISEASE COMPARISON: None TECHNIQUE: Transverse and longitudinal images of the kidneys and bladder were obtained. FINDINGS: Right Kidney: Length: 10.3 cm Appearance: Normal echogenicity. Collecting system: No hydronephrosis Stones: None Cyst/Mass: None Left Kidney: Length: 9.9 cm Appearance: Normal echogenicity. Collecting system: No hydronephrosis Stones: None Cyst/Mass: None Bladder: No mass or calculi. Prevoid estimated volume 119.97 cc. Bilateral ureteral jets seen. Prostate: Prostate is enlarged, estimated volume of 55.6 cc IMPRESSION: No hydronephrosis or renal calculi. Prostatomegaly. Signed by: Grant Castro MD on 10/29/2018 8:48 AM
== END ==
LOC: US 07:51
PROVIDERS: ATTEND Urology
DX: N13.30 Unspecified hydronephrosis (principal); N18.9 Chronic kidney disease, unspecified
CPT/HCPCS: 76770

== ENCOUNTER → 2019-09-03 | Outpatient (CLI) | payer OTHER ==
--- NOTE | 2019-09-03 13:54 | Diagnostic Imaging Report ---
Renal ultrasound Clinical History: Gross hematuria Discussion: Sonographic evaluation of the kidneys is performed. The kidneys have normal size and cortical echogenicity. The right kidney measures 9.9 cm in length. The left kidney measures 9.6 cm in length. There is no focal renal mass, hydronephrosis, or shadowing renal calculus. No perinephric fluid collection is seen. The inferior wall of the bladder appears irregular, although this may be representing trabeculation from chronic bladder outlet obstruction. Bladder mass cannot be excluded. In addition, the prostate is enlarged with irregular margin. Impression: 1 enlarged prostate with irregular margin. Clinical correlation is recommended to rule out prostatic neoplasm. 2. The inferior wall of the bladder appears irregular and thickened, although this may represent trabeculation from bladder outlet obstruction, mass lesion cannot be excluded. Correlation with cystoscopy is recommended. Signed by: Dr. Mauri Macias MD on 09/03/2019 1:50 PM
== END ==
LOC: US 07:59
PROVIDERS: ATTEND Urology
DX: R31.0 Gross hematuria (principal)
CPT/HCPCS: 76770; 76857

== ENCOUNTER 2019-12-15 05:44 | Inpatient (IN) | payer MEDICARE, OTHER ==
[2019-12-10 17:56] LABS: BASOPHILS # (AUTO) 0.1 (0.0-0.1); BASOPHILS % 0.8 % (0.0-1.0); EOSINOPHILS # (AUTO) 0.1 (0.0-0.4); HEMATOCRIT 41.1 % (38.2-49.6); HEMOGLOBIN 13.4 g/dL (14.0-18.0); LYMPHOCYTES # (AUTO) 1.9 (1.0-3.2); LYMPHOCYTES % 31.1 % (18.0-39.1); MEAN CORPUSCULAR HEMOGLOBIN 30.7 pg (28-32); MEAN CORPUSCULAR HGB CONC 32.6 g/dL (31-35); MEAN CORPUSCULAR VOLUME 94.1 fL (81-99); MONOCYTES # (AUTO) 0.6 (0.2-0.8); MONOCYTES % 9.1 % (4.4-11.3); NEUTROPHILS # (AUTO) 3.4 (2.1-6.9); NEUTROPHILS % 56.5 % (38.7-80.0); PLATELET COUNT 253 x10e3/uL (140-360); RED BLOOD COUNT 4.37 x10e6/uL (4.3-5.7); RED CELL DISTRIBUTION WIDTH 14.8 % (11.7-14.4)
[2019-12-10 18:11] LABS: ANION GAP 14.7 mmol/L (8-16); CALCIUM 9.6 mg/dL (8.4-10.2); CREATININE, SERUM 1.33 mg/dL (0.72-1.25); POTASSIUM 4.7 mmol/L (3.5-5.1)
--- NOTE | 2019-12-10 18:59 | Diagnostic Imaging Report ---
EXAMINATION: CHEST 2 VIEWS INDICATION: Preoperative evaluation of the lungs. COMPARISON: None FINDINGS: TUBES and LINES: None. LUNGS: Normal lung volumes. Lungs are clear. No consolidations. Bibasilar atelectasis. PLEURA: No pleural effusion or pneumothorax. HEART AND MEDIASTINUM: The cardiomediastinal silhouette is unremarkable. BONES AND SOFT TISSUES: No acute osseous lesion. Multilevel degenerative disease of the spine. Soft tissues are unremarkable. UPPER ABDOMEN: No free air under the diaphragm. IMPRESSION: No acute thoracic radiographic abnormality. Signed by: Walt Zimmerman MD on 12/10/2019 6:56 PM
[~2019-12-15] VITALS: Ht 177.8 cm; Wt 95.7 kg
[2019-12-15] MEDS ORDERED: CEFTRIAXONE SOD 1 GM/NS 50 ML 50 ML IV ONE (07:12)
[2019-12-15] MEDS ORDERED: SODIUM CHLORIDE 0.9% 1000ML 1,000 ML ONE (07:13)
[2019-12-15] MEDS ORDERED: GENTAMICIN 80MG/NS 100 ML 200 ML IV ONE (07:13)
[2019-12-15] MEDS ORDERED: BLOOD PRESSURE PO (07:27)
[2019-12-15] MEDS ORDERED: B&O 60MG R/S 60 MG SUPP PR ONE (10:53)
[2019-12-15] MEDS ORDERED: IOPAMIDOL 300MG/ML 50ML INFUS..BTL IV ONE (10:54)
[2019-12-15] MEDS ORDERED: PHENAZOPYRIDINE HCL 100 MG TAB PO PRN (12:45)
[2019-12-15] MEDS ORDERED: DIPHENHYDRAMINE HCL 25 MG CAP PO PRN (12:45)
[2019-12-15] MEDS ORDERED: B&O 60MG R/S 60 MG SUPP PR PRN (12:45)
[2019-12-15] MEDS ORDERED: ACETAMINOPHEN/CODEINE 300MG - 30MG TAB PO PRN (12:45)
[2019-12-15] MEDS ORDERED: ONDANSETRON HCL INJ 2MG/ML 2ML 2 MG/ML VIAL IV PRN (12:45)
[2019-12-15] MEDS ORDERED: HYDROMORPHONE 1MG/1ML INJ ONE (12:56)
--- OUTSIDE RECORDS SUMMARY | 2019-12-15 13:17 | XMS REPORT | Clinical Summary ---
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 4 Acute back pain Active HYDROcodone-acetaminophen 1-2 tab PO q6 12 tablet 0 (NORCO) 5-325 mg hr daily PRN 4 tabletIndications: Acute severe pain, back pain not to exceed 4000mg acetaminophen daily. Active lisinopril (PRINIVIL) 20 Take 1 tablet 30 tablet 0 10/27/201 mg tabletIndications: by mouth 4 Acute back pain daily. Active Problems Problem Noted Date Acute back pain 10/27/2013 Abdominal pain 12/27/2010 Prostate enlargement 08/01/2008 Essential hypertension, benign 03/05/2008 Family History Relation Name Status Comments Brother Alive Brother Alive Brother Alive Daughter Alive Father Mother Sister Alive Sister Alive Sister Alive Sister Alive Social History Date Tobacco Use Types Packs/Day Years Used Never Smoker Drinks/Week oz/Week Comments Alcohol Use No Sex Assigned at Date Recorded Not on file Industry Job Start Date Occupation Not on file Not on file Not on file Travel End Travel History Travel Start No recent travel history available. Last Filed Vital Signs Not on file Plan of Treatment Health Maintenance Due Date Last Done Comments IMM Pneumococcal Age 64 2009 and Up Colorectal Cancer Scrn 12/28/2011 12/27/2010, Annual (FIT/FOBT) Age 49 08/26/2009, to 74 03/14/2005, Additional history exists IMM Influenza Seasonal 01/13/2020 Oct to June (>/= 19 yrs) Results Not on fileafter 12/14/2018 Insurance Type Payer Benefit Subscriber ID Effective Phone Address Plan / Dates Group [employer] MEDICARE COMPLETE AAR xxxxxxxxx 2013-P [address] [place] [id number] [place] [address]
--- OUTSIDE RECORDS SUMMARY | 2019-12-15 13:17 | XMS REPORT | Continuity of Care Document ---
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 Name Role Phone [employer] Information [employer] Unavailable Un available Problems Problem Status Onset Date Classification Date Reported Comments Source Chest pain, unspecified 02/12/2018 08/26/2018 [facility] INTRACTABLE VOMITING, CHEST PAIN Active 02/04/2018 [facility] CHEST PAIN Active 02/04/2018 [facility] Discharge Diagnosis: Enlarged prostate 09/16/2015 09/19/2015 [facility] Discharge Diagnosis: Rectal bleeding 09/16/2015 09/19/2015 [facility] RECTAL BLEEDING Active 09/16/2015 [facility] Hypokalemia 08/26/2018 [facility] Nausea with vomiting, unspecified 08/26/2018 [facility] Essential (primary) hypertension 08/26/2018 [facility] Unspecified hydronephrosis 08/26/2018 [facility] Enlarged prostate without lower urinary tract symptoms 08/26/2018 [facility] Headache 08/26/2018 [facility] Shortness of breath 08/26/2018 [facility] VOMITING, UNSPECIFIED Active [facility] CHEST PAIN, UNSPECIFIED Active [facility] Medications Medication Details Route Status Patient Instructions Ordering Provider Order Date Source Potassium Chloride Notes: ([facility] e as: K-Dur 20) "Do Not Crush" For patients unable to swallow tablet, dissolve in one half glass of water. Allow about 2 minutes for the tablets to disintegrate. Stir before giving to prepare slurry and administer. Please exclude Patients with feeding tube less than 14 Frisian (Dobhoff, J-tube etc) and pediatric and patients. With food and full glass of water Inactive 02/06/2018 [facility] Docusate Notes: (Same as: Cola ce) (Do Not Crush) Inactive 02/06/2018 [facility] Hydralazine Hydrochloride 100 MG Oral Tablet Notes: (Same as: Apresoline) May interfere w/enteral feedings Take With Food No Longer Active 02/06/2018 [facility] heparin sodium, porcine 2500 UNT/ML Injectable Solutio n Notes: porcine heparin No Longer Active 02/06/2018 [facility] 24 HR Metoprolol Tartrate 100 MG Extende d Release Tablet [Toprol] Notes: (Same as: Toprol XL) May split t ab, but do not crush. 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 No Longer Active 02/05/2018 [facility] Doxazosin Notes: (Same as: Car dura) No Longer Active 02/05/2018 [facility] tamsulosin Notes: (Same As: Fl omax) "Do Not Crush" No Longer Active 02/05/2018 [facility] Tylenol Notes: Do not exceed 4 gm/day. (Same as: Tylenol) No Longer Active 02/05/2018 [facility] Acetaminophen 325 MG / Hydrocodone Katty trate 5 MG Oral Tablet [[place] 5/325] Notes: (Same as: [place] 325/5) Do not ex ceed 4gm/day of acetaminophen. No Longer Activ e 02/05/2018 [facility] Zofran Notes: (Same as: Zofran ) MEDICATION WASTE Product Size: 4 mg Product Wasted: ___ mg No Longer Active 02/05/2018 [facility] Tylenol Notes: Do not exceed 4 gm/day. (Same as: Tylenol) No Longer Active 02/05/2018 [facility] doxazosin 4 mg oral tablet 4 m g = 1 tab, PO, Daily, # 30 tab, 0 Refill(s) Active 02/05/2018 [facility] Hydrochlorothiazide 25 MG / Losartan Pot assium 100 MG Oral Tablet 1 tab, PO, Daily, # 30 tab, 0 Refill(s) Active 02/05/2018 [facility] tamsulosin 0.4 mg oral capsule 0.4 mg = 1 cap, PO, Daily, # 30 cap, 0 Refill(s) Active 02/05/2018 [facility] Hydralazine Hydrochloride 100 MG Oral Tablet 100 mg = 1 tab, PO, BID, # 60 tab, 0 Refill(s) Active 02/05/2018 [facility] metoprolol 100 mg oral tablet, extended release 100 mg = 1 tab, PO, Daily, # 30 tab, 0 Refill(s) Active 02/05/2018 [facility] Glucagon 1 mg, Route: IM, Drug form: PDR/INJ, PRN, Dosing Weight 90.909, kg, PRN Blood Glucose Results, Start date: 02/05/18 4:10:00 CDT, Duration: 30 day, Stop date: 03/07/18 3:09:00 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 Longer Active 02/05/2018 [facility] Dextrose 50% Syringe 25 gm, 50 mL, Route: IVP, Drug Form: INJ, Dosing Weight 90.909, kg, PRN, PRN Blood Glucose Results, Start date: 02/05/18 4:10:00 CDT, Duration: 30 day, Stop date: 03/07/18 3:09:00 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 Longer Active 02/05/2018 [facility] NS + KCL 20mEq/L 1000ml (Premix) 1,000 mL Notes: PREMIX IV - Do Not Alter WASTE: F/P - Sink; E - Municipal Trash Bin No Longer Active 02/05/2018 [facility] Brian Notes: (Same as: Brian ) MEDICATION WASTE Product Size: 4 mg Product Wasted: ___ mg Inactive 02/05/2018 [facility] Potassium Chloride Notes: Infu se at a rate of 10 mEq/hr. (Same as: KCL) Inactive 02/05/2018 [facility] Reglan 10 mg, Route: IVP, Drug form: INJ, ONCE, Dosing Weight 90.909, kg, Priority: STAT, Start date: 02/05/18 2:41:00 CDT, Stop date: 02/05/18 2:41:00 CDT Inactive 02/05/2018 [facility] Potassium Chloride Notes: (Johann e as: K-Dur 20) "Do Not Crush" For patients unable to swallow tablet, dissolve in one half glass of water. Allow about 2 minutes for the tablets to disintegrate. Stir before giving to prepare slurry and administer. Please exclude Patients with feeding tube less than 14 Frisian (Dobhoff, J-tube etc) and pediatric and patients. With food and full glass of water Inactive 02/05/2018 [facility] Sodium Chloride 0.9% (Bolus) IV 1,000 mL, 1000 ml/hr, Infuse Over: 1 hr, Route: IV, 1,000, Drug form: INJ, ONCE, Priority: STAT, Dosing Weight 90.909 kg, Start date: 02/04/18 22:37:00 CDT, Stop date: 02/04/18 22:37:00 CDT Inactive 02/05/2018 [facility] Ondansetron Notes: (Same as: Carlos cartwright) MEDICATION WASTE Product Size: 4 mg Product Wasted: ___ mg Inactive 02/05/2018 [facility] Famotidine Notes: (Same as: Salvador pcid) Can be dilute in 5- 10cc NS IVP: Slow IV push over at least 2 minutes. Inactive 02/05/2018 [facility] Allergies, Adverse Reactions, Alerts Substance Category Reaction Severity Reaction type Status Date Reported Comments Source No Known Medication Allergies Assertion Drug aller gy [facility] Immunizations No Data Provided for This Section Results Order Name Results Value Reference Range Date Interpretation Comments Source CHEM PANEL eGFR 52 02/06/2018 Result Comment: The eGFR is calculated using [...] should be multiplied by the estimated BMI. [facility] CHEM PANEL CO2 30 24 - 32 02/06/2018 [facility] CHEM PANEL Calcium Lvl 8.3 8.5 - 10.5 02/06/2018 [facility] CHEM PANEL AGAP 12.1 10.0 - 20.0 02/06/2018 [facility] CHEM PANEL BUN 13 7 - 22 02/06/2018 [facility] CHEM PANEL Chloride Lvl 110 95 - 109 02/06/2018 [facility] CHEM PANEL Potassium Lvl 3.1 3.5 - 5.1 02/06/2018 [facility] CHEM PANEL Sodium Lvl 149 135 - 145 02/06/2018 [facility] CHEM PANEL Creatinine Lvl 1.34 0.50 - 1.40 02/06/2018 [facility] CHEM PANEL Glucose Lvl 117 70 - 99 02/06/2018 [facility] CHEM PANEL Magnesium Lvl 2.2 1.8 - 2.4 02/06/2018 [facility] CARDIAC ENZYMES Troponin-I <0.02 0.00 - 0.40 02/05/2018 [facility] CHEM PANEL eGFR 47 02/05/2018 Result Comment: The eGFR is calculated using [...] should be multiplied by the estimated BMI. [facility] CHEM PANEL Potassium Lvl 3.2 3.5 - 5.1 02/05/2018 [facility] CHEM PANEL Chloride Lvl 107 95 - 109 02/05/2018 [facility] CHEM PANEL Sodium Lvl 149 135 - 145 02/05/2018 [facility] CHEM PANEL Creatinine Lvl 1.46 0.50 - 1.40 02/05/2018 [facility] CHEM PANEL Glucose Lvl 92 70 - 99 02/05/2018 [facility] CHEM PANEL BUN 14 7 - 22 02/05/2018 [facility] CHEM PANEL CO2 32 24 - 32 02/05/2018 [facility] CHEM PANEL Calcium Lvl 8.6 8.5 - 10.5 02/05/2018 [facility] CHEM PANEL AGAP 13.2 10.0 - 20.0 02/05/2018 [facility] CARDIAC ENZYMES Troponin-I <0.02 0.00 - 0.40 02/05/2018 [facility] URINE AND STOOL UA Color Ltyellow 02/05/2018 [facility] URINE AND STOOL UA Urobilinogen <=1.0 mg/dL 0.1 - 1.0 02/05/2018 [facility] URINE AND STOOL UA Spec Grav 1.012 <=1.030 02/05/2018 [facility] URINE AND STOOL UA Turbidity Clear (02/04/18 11:10 PM) Clear 02/05/2018 [facility] URINE AND STOOL UA Protein Negative mg/dL Negative mg/dL 02/05/[address] [facility] [address] URINE AND STOOL UA pH 6.0 5.0 - 8.0 02/05/2018 [facility] URINE AND STOOL UA WBC 1 0 - 5 02/05/2018 [facility] URINE AND STOOL UA Bacteria Occasional /HPF None Seen /HPF 02/05/[address] [facility] [address] URINE AND STOOL UA RBC 2 0 - 2 02/05/2018 [facility] URINE AND STOOL UA Sq Epi None Seen 02/05/2018 [facility] URINE AND STOOL UA Blood Negative (02/04/18 11:10 PM) Negative 02/05/2018 [facility] URINE AND STOOL UA Bili Negative *NA* (02/04/18 11:10 PM) Negative 02/05/2018 [facility] URINE AND STOOL UA Ketones Negative mg/dL Negative mg/dL 02/05/[address] [facility] [address] URINE AND STOOL UA Glucose Negative mg/dL Negative mg/dL 02/05/[address] [facility] [address] URINE AND STOOL UA Leuk Est Negative (02/04/18 11:10 PM) Negative 02/05/2018 [facility] URINE AND STOOL UA Nitrite Negative (02/04/18 11:10 PM) Negative 02/05/2018 [facility] CARDIAC ENZYMES Troponin-I <0.02 0.00 - 0.40 02/05/2018 [facility] CARDIAC ENZYMES Total CK 118 12 - 191 02/05/2018 [facility] CHEM PANEL Lipase Lvl 253 73 - 393 02/05/2018 [facility] CHEM PANEL eGFR 53 02/05/2018 Result Comment: The eGFR is calculated using [...] should be multiplied by the estimated BMI. [facility] CHEM PANEL Albumin Lvl 3.5 3.5 - 5.0 02/05/2018 [facility] CHEM PANEL ALT 21 0 - 65 02/05/2018 [facility] CHEM PANEL AST 16 0 - 37 02/05/2018 [facility] CHEM PANEL B/C Ratio 12 6 - 25 02/05/2018 [facility] CHEM PANEL Total Protein 7.2 6.4 - 8.4 02/05/2018 [facility] CHEM PANEL Globulin 3.7 2.7 - 4.2 02/05/2018 [facility] CHEM PANEL A/G Ratio 0.9 0.7 - 1.6 02/05/2018 [facility] CHEM PANEL Chloride Lvl 104 95 - 109 02/05/2018 [facility] CHEM PANEL CO2 30 24 - 32 02/05/2018 [facility] CHEM PANEL Potassium Lvl 2.7 3.5 - 5.1 02/05/2018 Result Comment: Critical Result(s) jey del toro to Lara Alfaro 02/04/2018 22:15 by dayna. Read back OK. [facility] CHEM PANEL AGAP 9.7 10.0 - 20.0 02/05/2018 [facility] CHEM PANEL Calcium Lvl 9.1 8.5 - 10.5 02/05/2018 [facility] CHEM PANEL BUN 16 7 - 22 02/05/2018 [facility] CHEM PANEL Creatinine Lvl 1.33 0.50 - 1.40 02/05/2018 [facility] CHEM PANEL Glucose Lvl 118 70 - 99 02/05/2018 [facility] CHEM PANEL Sodium Lvl 141 135 - 145 02/05/2018 [facility] CHEM PANEL Alk Phos 72 39 - 136 02/05/2018 [facility] CHEM PANEL Bili Total 0.6 0.2 - 1.3 02/05/2018 [facility] HEMATOLOGY Segs 70.4 45.0 - 75.0 02/05/2018 [facility] HEMATOLOGY Basophils # 0.1 0.0 - 0.2 02/05/2018 [facility] HEMATOLOGY Neutrophils # 6.3 1.5 - 8.1 02/05/2018 [facility] HEMATOLOGY Eosinophils # 0.1 0.0 - 0.5 02/05/2018 [facility] HEMATOLOGY Lymphocytes # 2.0 1.0 - 5.5 02/05/2018 [facility] HEMATOLOGY Monocytes # 0.5 0.0 - 0.8 02/05/2018 [facility] HEMATOLOGY Eosinophils 1.1 0.0 - 4.0 02/05/2018 [facility] HEMATOLOGY Lymphocytes 22.0 20.0 - 40.0 02/05/2018 [facility] HEMATOLOGY Monocytes 5.8 2.0 - 12.0 02/05/2018 [facility] HEMATOLOGY Basophils 0.7 0.0 - 1.0 02/05/2018 [facility] HEMATOLOGY RBC 4.42 4.70 - 6.10 02/05/2018 [facility] HEMATOLOGY WBC 9.0 3.7 - 10.4 02/05/2018 [facility] HEMATOLOGY RDW 14.3 11.5 - 14.5 02/05/2018 [facility] HEMATOLOGY Platelet 247 133 - 450 02/05/2018 [facility] HEMATOLOGY MPV 8.7 7.4 - 10.4 02/05/2018 [facility] HEMATOLOGY MCH 31.3 27.0 - 31.0 02/05/2018 [facility] HEMATOLOGY MCHC 34.9 32.0 - 36.0 02/05/2018 [facility] HEMATOLOGY Hct 39.8 42.0 - 54.0 02/05/2018 [facility] HEMATOLOGY MCV 89.8 80.0 - 94.0 02/05/2018 [facility] HEMATOLOGY Hgb 13.9 14.0 - 18.0 02/05/2018 [facility] CHEM PANEL Lipase Lvl 170 73 - 393 09/16/2015 [facility] ELECTROLYTES AGAP 12.3 10.0 - 20.0 09/16/2015 [facility] ELECTROLYTES B/C Ratio 9 6 - 25 09/16/2015 [facility] ELECTROLYTES A/G Ratio 1.0 0.7 - 1.6 09/16/2015 [facility] ELECTROLYTES Globulin 4.0 2.0 - 4.0 09/16/2015 [facility] ELECTROLYTES eGFR 78 09/16/2015 Result Comment: The eGFR is calculated [...] should be multiplied by the estimated BMI. [facility] ELECTROLYTES Creatinine Lvl 0.9 8 0.50 - 1.40 09/16/2015 [facility] ELECTROLYTES BUN 9 7 - 22 09/16/2015 [facility] ELECTROLYTES Glucose Lvl 101 70 - 99 09/16/2015 [facility] ELECTROLYTES Sodium Lvl 142 135 - 145 09/16/2015 [facility] ELECTROLYTES Albumin Lvl 3.8 3.5 - 5.0 09/16/2015 [facility] ELECTROLYTES Total Protein 7.8 6.4 - 8.4 09/16/2015 [facility] ELECTROLYTES ALT 23 0 - 65 09/16/2015 [facility] ELECTROLYTES Bili Total 0.5 0.2 - 1.3 09/16/2015 [facility] ELECTROLYTES Alk Phos 76 39 - 136 09/16/2015 [facility] ELECTROLYTES Calcium Lvl 9.2 8.5 - 10.5 09/16/2015 [facility] ELECTROLYTES CO2 29 24 - 32 09/16/2015 [facility] ELECTROLYTES Chloride Lvl 104 95 - 109 09/16/2015 [facility] ELECTROLYTES Potassium Lvl 3.3 3.5 - 5.1 09/16/2015 [facility] ELECTROLYTES AST 18 0 - 37 09/16/2015 [facility] HEMATOLOGY Monocytes 6.3 2.0 - 12.0 09/16/2015 [facility] HEMATOLOGY Basophils # 0.1 0.0 - 0.2 09/16/2015 [facility] HEMATOLOGY Eosinophils # 0.1 0.0 - 0.5 09/16/2015 [facility] HEMATOLOGY Monocytes # 0.4 0.0 - 0.8 09/16/2015 [facility] HEMATOLOGY Lymphocytes # 2.0 1.0 - 5.5 09/16/2015 [facility] Segs-Bands # 4.2 1.5 - 8.1 09/16/2015 [facility] HEMATOLOGY Basophils 1.1 0.0 - 1.0 09/16/2015 [facility] HEMATOLOGY Eosinophils 1.2 0.0 - 4.0 09/16/2015 [facility] Lymphocytes 29.8 20.0 - 40.0 09/16/2015 [facility] Segs 61.6 45.0 - 75.0 09/16/2015 [facility] MPV 8.6 7.4 - 10.4 09/16/2015 [facility] Platelet 248 133 - 450 09/16/2015 [facility] RDW 14.3 11.5 - 14.5 09/16/2015 [facility] MCHC 33.6 32.0 - 36.0 09/16/2015 [facility] MCH 30.7 27.0 - 31.0 09/16/2015 [facility] WBC 6.8 3.7 - 10.4 09/16/2015 [facility] RBC 4.75 4.70 - 6.10 09/16/2015 [facility] Hgb 14.6 14.0 - 18.0 09/16/2015 [facility] Hct 43.5 42.0 - 54.0 09/16/2015 [facility] MCV 91.5 80.0 - 94.0 09/16/2015 [facility] URINE AND STOOL UA Color Ltyellow 09/16/2015 [facility] URINE AND STOOL UA Sq Epi None Seen 09/16/2015 [facility] URINE AND STOOL UA RBC 2 0 - 2 09/16/2015 [facility] URINE AND STOOL UA WBC 2 0 - 5 09/16/2015 [facility] URINE AND STOOL UA Urobilinogen <=1.0 mg/dL 0.1 - 1.0 09/16/2015 [facility] URINE AND STOOL UA Ketones Negative mg/dL Negative mg/dL 09/16/2015 [facility] URINE AND STOOL UA Leuk Est Trace *ABN* (09/16/15 3:30 PM) Negative 09/16/2015 [facility] URINE AND STOOL UA Nitrite Negative (09/16/15 3:30 PM) Negative 09/16/2015 [facility] URINE AND STOOL UA Blood Negative (09/16/15 3:30 PM) Negative 09/16/2015 [facility] URINE AND STOOL UA Bili Negative *NA* (09/16/15 3:30 PM) Negative 09/16/2015 [facility] URINE AND STOOL UA pH 7.0 5.0 - 8.0 09/16/2015 [facility] URINE AND STOOL UA Spec Grav 1.009 <=1.030 09/16/2015 [facility] URINE AND STOOL UA Glucose Negative mg/dL Negative mg/dL 09/16/2015 [facility] URINE AND STOOL UA Protein Negative mg/dL Negative mg/dL 09/16/2015 [facility] URINE AND STOOL UA Turbidity Clear (09/16/15 3:30 PM) Clear 09/16/2015 [facility] URINE AND STOOL Occult Bld Stl Positive *ABN* (09/16/15 3:30 PM) Negative 09/16/2015 [facility] Pathology Reports No Data Provided for This Section Diagnostic Reports Report Value Date Source ED Abdomen/Pelvis IV contrast only CT CT ABDOMEN AND PELVIS WITH IV CONTRAST CLINICAL INDICATION: - abdominal pain. COMPARISON: 09/16/15 TECHNIQUE: Helical imaging was performed from diaphragm through the symphysis with coronal and sagittal reconstructions. CT imaging was performed with exposure control parameters to reduce radiation dose. IV CONTRAST: [address] Radiation Dose: DLP = 1239.41 mGy-cm FINDINGS: LOWER CHEST: Trace bilateral pleural [...] gastroesophageal reflux. Additional findings as above. SL: UKUDOMERO 02/04/2018 [facility] Chest 2 views DX EXAM: Chest 2 views DX DATE: 02/04/2018 8:45 PM CDT INDICATION: - chest pain COMPARISON: None. IMPRESSION: Grossly normal cardiac silhouette and mediastinum. Atherosclerotic thoracic aorta. No focal consolidation, significant pleural effusion or pneumothorax. Mild thoracic spondylosis. SL: [id number] 02/04/2018 [facility] Abdomen/Pelvis w IV contrast CT Study: Abdomen/Pelvis w IV contrast CT 09/16/2015 2:18 PM CDT Patient Name: MINI BLANCO MR: [id number] : 1945; Age: 69 years y/o Male [...] Liver size at the upper limits of no rmal to mildly enlarged. 3. Normal kidneys, adrenal glands, panc reas, spleen, and gallbladder. BOWEL: Mild constipation in [...] osseous lesion. IMPRESSION: 1. Mild constipation and diverticulosis . 2. Mildly dilated mildly thick-walled a ppendix without definitive periappendiceal inflammation or luminal fluid. [...] Heart size at the upper limits of no rmal to mildly enlarged. 6. Liver size at the upper limits of no rmal to mildly enlarged. SL: [facility]- 09/16/2015 [facility] Neck soft tissue w contrast CT CT [...] A calcified granuloma noted at the left [place]. The bony structures demonstrate cervical spondylosis. CONCLUSION: NO EVIDENCE FOR SIALADENITIS AT THE LEFT SUBMANDIBULAR GLAND. THERE IS ASYMMETRY WITH SOME MILD THICKENING OF THE LEFT PIRIFORM SINUS AND ARYEPIGLOTTIC FOLD INCLUDING THE LEFT LATERAL PHARYNGEAL WALL LIKELY NORMAL MUCOSAL REDUNDANCY WITHOUT A DEFINITE FOCAL ABNORMALITY. MULTIPLE SUBCENTIMETER REACTIVE LEVEL 1, 2, AND 5 LYMPH NODES. CERVICAL SPONDYLOSIS IS MILD TO MODERATE. 10/16/2012 MAMADOU Noyola Consultation Notes No Data Provided for This Section Discharge Summaries No Data Provided for This Section History and Physicals No Data Provided for This Section Vital Signs Vital Sign Value Date Comments Source Systolic (mm Hg) 154 02/06/2018 [facility] Diastolic (mm Hg) 76 02/06/2018 [facility] Respitory Rate 18 02/06/2018 [facility] Temperature Oral (F) 98.2 F 02/06/2018 [facility] Heart Rate 63 02/06/2018 [facility] Respitory Rate 18 02/06/2018 [facility] Systolic (mm Hg) 156 02/06/2018 [facility] Diastolic (mm Hg) 73 02/06/2018 [facility] Heart Rate 76 02/06/2018 [facility] Temperature Oral (F) 98.3 F 02/06/2018 [facility] Heart Rate 79 02/06/2018 [facility] Temperature Oral (F) 98.8 F 02/06/2018 [facility] Systolic (mm Hg) 152 02/06/2018 [facility] Diastolic (mm Hg) 64 02/06/2018 [facility] Respitory Rate 17 02/06/2018 [facility] Weight 90.9 02/05/2018 [facility] Height 177.8 cm 02/05/2018 [facility] Weight 90.909 02/05/2018 [facility] BMI Calculated 28.76 02/05/2018 [facility] BMI Calculated 28.76 02/05/2018 [facility] Weight 90.909 02/05/2018 [facility] Height 177.8 cm 02/05/2018 [facility] [facility] 16 09/17/2015 [facility] Heart Rate 75 09/17/2015 [facility] Systolic (mm Hg) 160 09/17/2015 [facility] Diastolic (mm Hg) 75 09/17/2015 [facility] Temperature Oral (F) 98.2 F 09/17/2015 [facility] BMI Calculated 27.32 09/16/2015 [facility] Weight 86.364 09/16/2015 [facility] Height 177.8 cm 09/16/2015 [facility] Respitory Rate 18 09/16/2015 [facility] Temperature Oral (F) 98.6 F 09/16/2015 [facility] Systolic (mm Hg) 161 09/16/2015 [facility] Diastolic (mm Hg) 79 09/16/2015 [facility] Heart Rate 77 09/16/2015 [facility] Encounters Location Location Details Encounter Type Encounter Number Reason For Visit Attending Provider ADM Date DC Date Status Source [facility] [id number] Migue Joseph 09/16/2015 09/17/2015 [facility] Observation [id number] Debora Benoit 02/05/2018 02/06/2018 [facility] Procedures No Data Provided for This Section Assessment and Plan Assessment and Plan Date Source Extracted from:Title: Clinical Document Author: Vipin Story MD Date: 02/06/18 Hospitalist Discharge Note [facility] Vipin Story MD ADMIT DATE: 02/05/2018 DISCHARGE DATE: 02/06/2018 DISCHARGE TO: Home DISCHARGE FOLLOW UP: 1. PCP in 1 week 2. Outpatient urologythe patient osmani rdier has an established urologist will follow up with him DISCHARGE DIAGNOSIS: 1. Chest painatypical 2. Nausea vomiting 3. Hypokalemia 4. Bilateral hydroureteronephrosis 5. Hypertension CONSULTATIONS: None PROCEDURES: None PERTINENT TESTS: CT scan of the abdomen pelvis Moderate bilateral hydroureteronephrosis, new since the comparison [...] esophagus may represent findings of gastroesophageal reflux. HOSPITAL COURSE: Mr. Blanco is a is a 72-year-old male who presented to the emergency room complaining of nausea vomiting. He additionally complained of mild chest discomfort. He then subsequently evaluated in the emergency room where he was found to be hypokalemic. Due to his presentation is placed into observation with telemetry. While here the patient's nausea vomiting gradually improved. His potassium was replaced appropriately. His troponins have been negative. The patient felt that may be his nausea vomiting may be secondary to his blood pressure medications. I offered to change his blood pressure medications however at this time he wished to follow-up with his PCP. He has been receiving his home regimen of medications here without any nausea vomiting. Patient felt much better. His diet was advanced. His nausea vomiting improved. I spoke with him about the findings on CAT scan particularly his bilateral hydroureteronephrosis. I offered a urology consultation here however the patient was to follow-up with his own urologist which he already has an appointment with CAT scan reports were given to the patient upon discharge. He is clinically appropriate for discharge and will be discharged home later today in stable condition. DISCHARGE NOTE: Restrictions: None Activity: as tolerated Diet: cardiac Code Status: Full Code Medications: see d/c karin DC time: 35 min Extracted from:Title: Clinical Document Author: Vipin Story MD Date: 02/06/18 Hospitalist Progress Note [facility] Vipin Story MD Progress Note - Daily [facility] Completed: Jan, 12:43 by Vipin Story MD RM: CCDU - 17, SE [facility] MINI BLANCO 72y (: 1945) M Attending: Debora Benoit MD Service: Internal Medicine Reason for Admission: INTRACTABLE VOMITING, CHEST PAIN Working DRG: Code status: None Specified=FULL CODE Current diet: Isolation: No Isolation/Standard Precautions Allergies: NKDA SUBJECTIVE Patient seen and examined at bedside. No overnight events. The patient states that his nausea vomiting has improved. He is tolerating his diet. OBJECTIVE GENERAL: In no apparent distress at this time. HEENT: EOMI. NECK: Supple. No jugular venous distention or bruits. CARDIOVASCULAR: Regular rate and rhythm, S1, S2 positive. LUNGS: Clear to auscultation bilateral. GASTROINTESTINAL: Soft, nontender, nondistended, positive bowel sounds. EXTREMITIES: No clubbing, cyanosis or edema. BACK: Normal inspection NEUROLOGICAL: Intact. No gross deficits noted. SKIN: no rashes noted. PSYCH: Awake, alert, oriented x4 24hr Labs 02/06 0431 Glucose Lvl 117 H BUN 13 Creatinine Lvl 1.34 Sodium Lvl 149 H Potassium Lvl 3.1 L Chloride Lvl 110 H CO2 30 AGAP 12.1 Calcium Lvl 8.3 L eGFR 52 Magnesium Lvl 2.2 Blair still necessary (Yes/No): Line still necessary (Yes/No): Vitals Tmp(F) Pulse BP RR SpO2 FIO2 02/06 12:15 98.2 63 154/76 1 8 95 --- 02/06 07:38 98.3 76 156/73 1 8 96 --- 02/06 04:31 98.8 79 152/64 1 7 97 --- 02/06 00:08 99.0 65 133/66 1 8 95 --- 02/05 19:45 98.3 69 132/41 1 8 94 --- 24 Hr Tmax: 99.0F (37.22c) at 02/06 00:0 8 Vital Signs are the last 5 in the past 48 hours. Date Wt(kg) Wt(lb) Ht(cm) Ht(in) Method 02/05 90.91 200.00 177.80 70.00 Estimated 02/04 (initial) 90.91 200.00 Estimated 02/04 177.80 70.00 Stated I&O Record In Out Bal 02/06 24hr Tot 0 0 0 02/05 24hr Tot 1072 0 1072 Medications (18) Active Scheduled Meds (7): 02/05/18 doxazosin 4 mg PO Daily 02/05/18 heparin (heparin 5000 units/mL injectable solution) 5,000 unit SUB-Q Q12H 02/05/18 hydrALAZINE (hydrALAZINE 100 mg oral tablet) 100 mg PO BID 02/05/18 hydrochlorothiazide (hydrochlor othiazide 25 mg oral tablet) 25 mg PO Daily 02/05/18 losartan (Cozaar) 100 mg PO Nuvia ly 02/05/18 metoprolol (Toprol-XL 100 mg or al tablet, extended release) 100 mg PO Daily 02/05/18 tamsulosin 0.4 mg PO Daily Unscheduled Meds: None PRN Meds (8): 02/05/18 Dextrose 50% in Water IV (Dextr ose 50% Syringe) 12.5 gm IVP PRN 02/05/18 Dextrose 50% in Water IV (Dextr ose 50% Syringe) 25 gm IVP PRN 02/05/18 acetaminophen-hydrocodone (Norc o 5/325 oral tablet) 1 tab PO Q6H 02/05/18 acetaminophen (Tylenol) 650 mg PO Q6H 02/05/18 acetaminophen (Tylenol) 650 mg PO Q6H 02/06/18 docusate 100 mg PO Bedtime 02/05/18 glucagon 1 mg IM PRN 02/05/18 ondansetron (Zofran) 4 mg IV Q8 H One Time Meds (2): 02/05/18 (Completed) metoclopramide (Re glan) 10 mg IVP ONCE 02/06/18 (Ordered) potassium chloride 4 0 mEq PO ONCE Continuous Infusions (1): 02/05/18 LVP solution with potassium 1,0 00 mL (NS + KCL 20mEq/L 1000ml (Premix) 1,000 mL) 1,000 mL 125 ml/hr A/P nausea and vomiting chest pain critical hypokalemia headache HTN Hydroureteronephrosis Replete potassium Advance diet as tolerates Spoke with the patient and the family about his blood pressure medication-there was to follow-up with her PCP in regards to further adjustments Spoke with the patient and family once again about the bilateral hydroureteronephrosis seen on CT scan. He denies any urinary symptoms at this time at this time there was to follow-up with the urologist was to have an appointment next week. We will give them copies of the report to take to their outpatient urology follow-up. Discharge home Extracted from:Title: P Hospitalist Admission H&P Author: Yudy Guerra MD Date: 02/05/18 [facility] Providers Hospitalist Admission History and Physical Code Status: None Specified=FULL CODE Chief Complaint: chest pain, intractable nausea and vomiting History of Present Illness: This is a 72 year old M with a hx of HTN who presented to the ED with multiple complaints, including chest pain, abdominal pain, and nausea. Denies fevers at home. Patient also states that he vomited a few times in the ED. Labs show hypokalemia of 2.7. Admitted for chest pain r/o and treatment of intractable nausea and vomiting. Pt denies diarrhea, syncope, dizziness, weakness, numbness/tingling. He does endorse headache. Chest pain has improved since when he arrived to the ED. CT abdomen shows hydrourteronephrosis and age-indeterminate perinephric stranding, however, the UA is not concerning for infection. Review of Systems: as mentioned in HPI Past Medical History: No qualifying data available Past Surgical History: No qualifying data available Family History: No qualifying data available Social History: Tobacco Details: Use: Never smoker. Ready to change: No. Tobacco smoke exposure: None. Did the Patient Smoke Cigarettes Anytime During the Last 365 Days? No. Cessation Counseling Provided? No. Medications: Medications (11) Active Scheduled Meds (1): 02/05/18 potassium chloride 10 mEq IVPB Q1H 100 ml/hr Unscheduled Meds: None PRN Meds (4): 02/05/18 Dextrose 50% in Water IV (Dextr ose 50% Syringe) 12.5 gm IVP PRN 02/05/18 Dextrose 50% in Water IV (Dextr ose 50% Syringe) 25 gm IVP PRN 02/05/18 glucagon 1 mg IM PRN 02/05/18 ondansetron (Zofran) 4 mg IVP Q 8H One Time Meds (5): 02/04/18 (Completed) Sodium Chloride 0. 9% IV (Sodium Chloride 0.9% (Bolus) IV) 1,000 mL IV ONCE 1000 ml/hr 02/04/18 (Completed) famotidine 20 mg I PAPER COUNTER ONCE 02/05/18 (Completed) metoclopramide (Re glan) 10 mg IVP ONCE 02/04/18 (Completed) ondansetron 4 mg I PAPER COUNTER ONCE 02/04/18 (Completed) potassium chloride 40 mEq PO ONCE Continuous Infusions (1): 02/05/18 LVP solution with potassium 1,0 00 mL (NS + KCL 20mEq/L 1000ml (Premix) 1,000 mL) 1,000 mL 125 ml/hr Allergies (1) Active Reaction NKDA None documented Allergies: Physical Exam: Vitals Tmp(F) Pulse BP RR SpO2 FIO2 02/05 03:31 ---- 75 119/67 2 0 94 --- 02/05 02:42 ---- 80 138/70 2 0 94 --- 02/05 00:39 ---- 85 152/72 2 0 97 --- 02/04 21:35 ---- 89 ----- 21 --- --- 02/04 21:33 ---- 89 154/71 2 0 96 --- 24 Hr Tmax: 98.8F (37.11c) at 02/04 20:4 4 Vital Signs are the last 5 in the past 48 hours. General: sleeping HEENT: PERRLA, EOMI. MMM and intact without erythema. No conjunctival injection. No scleral icterus. Neck: Supple, full ROM Heart: RRR, normal S1, S2. No murmurs, rubs, gallops Lungs: Clear to auscultation bilaterally. Symmetric chest wall expansion. Abdomen: epigastric tenderness to palpation MSK: 5/5 strength in upper and lower extremities bilaterally. No peripheral edema. Skin: No rashes or lesions. No petechiae or bruising noted. Neuro: CN II-XII grossly intact. Psych: Appropriate mood and affect. I&O Record In Out Bal 02/04 24hr Tot 1000 0 1000 02/03 24hr Tot 0 0 0 Lines, Tubes, and Drains: 02/04/2018 22:08 Peripheral Lines: Antec ubital Left 20 gauge Over the needle catheter Labs: Hct: 39.8 % Low (02/04/18 21:01:00) Hgb: 13.9 g/dL Low (02/04/18 21:01:00) MCH: 31.3 pg High (02/04/18 21:01:00) MCHC: 34.9 g/dL (02/04/18 21:01:00) MCV: 89.8 fL (02/04/18 21:01:00) MPV: 8.7 fL (02/04/18 21:01:00) Platelet: 247 K/CMM (02/04/18 21:01:00) RBC: 4.42 M/CMM Low (02/04/18 21::00) RDW: 14.3 % (02/04/18::00) WBC: 9 K/CMM (02/04/18::00) CO2: 30 mEq/L (02/04/18::00) Chloride Lvl: 104 mEq/L (02/04/18::00) Sodium Lvl: 141 mEq/L (02/04/18::00) Glucose Lvl: 118 mg/dL High (02/04/18::00) Calcium Lvl: 9.1 mg/dL (02/04/18::00) Potassium Lvl: 2.7 mEq/L Critical (02/04/18::00) BUN: 16 mg/dL (02/04/18::00) AGAP: 9.7 mEq/L Low (02/04/18::00) Creatinine Lvl: 1.33 mg/dL (02/04/18::00) Imaging: Reviewed Assessment/Plan: 1. Intractable nausea and vomiting 2. hypokalemia 3. Chest pain 4. Abdominal pain 5. Headache Plan: -continue supportive care with fluids, a ntiemetics -replace electrolytes as needed -normal saline with potassium -trend troponins x 3, first set negative -pain control D/c in the AM if no longer vomiting and trops negative. Prophylaxis: ambulation Disposition: 1 KVNG Guerra MD Hospitalist [facility] Providers 02/06/2018 [facility] Plan of Care No Data Provided for This Section Social History Social History Date Source Social History TypeResponse Smoking Status Never smoker; Ready to change: No; Exposure to Tobacco Smoke None; Cigarette Smoking Last 365 Days No; Reg Smoking Cessation Counseling No entered on: 02/04/18 02/05/2018 [facility] Family History No Data Provided for This Section Advance Directives No Data Provided for This Section Functional Status No Data Provided for This Section
--- OUTSIDE RECORDS SUMMARY | 2019-12-15 13:18 | XMS REPORT | Continuity of Care Document ---
Author Author [facility] t Organization [facility] Address [address] [place] [address] Phone Unavailable Care Team Providers Care Superintendent Plant Name Role Phone GEREMIAS HAND PCP IAM JUAREZ Attphys Unavailable GEREMIAS HAND Attphys Unavailable Noelle DOOLEY YICHING Attphys Unavailable DEEPALI VERA Attphys Unavailable Mougouris, Taso Attphys Opal DainMorgan Camarena Attphys Noelle DOOLEY YICHING Admphys Unavailable Mougouris, Taso Admphys Payers Payer Name Policy Type Policy Number Effective Date Expiration Date Uche monsivais Aarp Medicare Complete [id number] 2017 00:00:00 [facility] Problems Condition Name Condition Details Condition Category Status Onset Date Resolution Date Last Treatment Date Treating Clinician Comments Source INTRACTABLE VOMITING, CHEST PAIN INTRACTABLE VOMITING, CHEST PAIN Active 02/04/2018 [facility] Active 2018-02-04 00 :00:00 2018-02-10 21:46:00 [facility] CHEST PAIN CHES T PAIN Active 02/04/2018 [facility] Active 2018-02-04 00:00:00 2018-02-04 21:46:00 [facility] RECTAL BLEEDING RECT AL BLEEDING Active 09/16/2015 [facility] Active 2015-09-16 00:00:00 2015-09-16 15:34:00 [facility] Acute back pain Acute back pain Disease Active 2013-10-27 00:00:00 [facility] Abdominal pain Abdominal pain Disease Active 2010-12-27 00:00:00 [facility] Prostate enlargement Prostate enlargement Disease Active 00:00:00 [facility] Essential hypertension, benign Essential hypertension, benign Disea se Active 2008-03-05 00:00:00 [facility]alth Acute renal failure superimposed on chronic kidney dis ease Renal failure (ARF), acute on chronic Problem Active [facility] Hypokalemia Hypo kalemia 08/26/2018 [facility] Problem 2018-08-26 11:53:49 Memor alban Hyde Nausea with vomiting, unspecified Nausea with vomiting, unspecified 08/26/2018 [facility] 2018-08-26 1 1:53:49 Jarvis Hyde Essential (primary) hypertension Essential (primary) hypertension 08/26/2018 [facility] Problem 2018-08-26 11:53:49 [facility] Barrett Unspecified hydronephrosis Uns pecified hydronephrosis 08/26/2018 [facility] Problem 2018-08-26 11:53:4 9 Jarvis Hyde Enlarged prostate without lower urinary tract symptoms Enlarged prostate without lower urinary tract symptoms 08/26/2018 [facility] Problem 2018-08-26 11:53:49 [facility] Headache Head ache 08/26/2018 [facility] 2018-08-26 11:53:49 [facility] Shortness of breath Shor tness of breath 08/26/2018 [facility] 2018-08-26 11:53:49 Me morial Barrett VOMITING, UNSPECIFIED VOMI TING, UNSPECIFIED Active [facility] Active 2018-02-10 21:46:00 Me morial [place] CHEST PAIN, UNSPECIFIED CHES T PAIN, UNSPECIFIED Active [facility] Active 2018-02-10 21:46:00 [facility] Chest pain, unspecified Ches t pain, unspecified 02/12/2018 08/26/2018 [facility] Problem 2018-02-12 03:59:36 2018 11:53:49 2018-08-26 11:53:49 [facility] Barrett Discharge Diagnosis: Enlarged prostate Discharge Diagnosis: Enlarged prostate 09/16/2015 09/19/2015 [facility] 2015-09-16 05:00:00 2015-09-19 03:39:42 2015-09-19 03:39:42 [facility] Discharge Diagnosis: Rectal bleeding Discharge Diagnosis: Rectal bleeding 09/16/2015 09/19/2015 [facility] 2015-09-16 05:00:00 2015-09-19 03:39:42 2015-09-19 03:39:42 Jarvis Hyde Allergies, Adverse Reactions, Alerts Allergy Name Allergy Type Status Severity Reaction(s) Onset Date Inacti ve Date Treating Clinician Comments Source No Known Medication Allergies No Known Medication Allergies Active Jarvis Hyde Social History Social Habit Start Date Stop Date Quantity Comments Source Sex Assigned At [facility] Alcohol intake 2013-10-27 00:00:00 2013-10-27 00:00:00 Current non-drinker of alcohol (finding) [facility] Smoking Status Start Date Stop Date Source Social History [facility] Medications Ordered Medication Name Filled Medication Name Start Date Stop Da te Current Medication? Ordering Clinician Indication Dosage Frequency Signature (SIG) Comments Components Source Potassium Chloride 2018-02-06 17:42:00 No Notes: (Same as: K-Dur 20) "Do Not Crush" For patients unable to swallow tablet, dissolve in one half glass of water. Allow about 2 minutes for the tablets to disintegrate. Stir before giving to prepare slurry and administer. Please exclude Patient s with feeding tube less than 14 Afghan (Dobhoff, J-tube etc) and pediatric and patients. With food and full glass of water Jarvis Hyde Docusate 2018-02-06 09:40:00 No Notes: (Same as: Colace) (Do Not Crush) Jarvis Hyde Hydralazine Hydrochloride 100 MG Oral Tablet 2018-02-06 02:00:00 No Notes: (Same as: Apresoline) May interfere w/enteral feedings Take With Food Jarvis Hyde heparin sodium, porcine 2500 UNT/ML Injectable Solution 2018-02-06 02:00:00 No Notes: [facility] 24 HR Metoprolol Tartrate 100 MG Extended Release Tablet [To prol] 2018-02-05 22:00:00 No Notes: (Sa me as: Toprol XL) May split tab, but do not crush. Jarvis Hyde Hydrochlorothiazide 25 MG / Losartan Potassium 100 MG Oral T ablet 2018-02-05 18:00:00 No 1 tab, Rou te: PO, Drug Form: TAB, Dosing Weight 90.9, kg, Daily, Start date: 02/05/18 13:00:00 CDT, Duration: 30 day, Stop date: 03/07/18 9:00:00 GLASS TUBE BENDER Jarvis Hyde Cozaar 2018-02-05 18:00:00 No Notes: (Same as: Cozaar) Jarvis Hyde hydrochlorothiazide 25 mg oral tablet 2018-02-05 18:00:00 N o Notes: (Same as: Hydrodiuril) With food. Mohsen Hyde Doxazosin 2018-02-05 18:00:00 No Notes: (Sa me as: Cardura) Jarvis Hyde tamsulosin 2018-02-05 18:00:00 No Notes: (Same As: Flomax) "Do Not Crush" Jarvis Hyde Tylenol 2018-02-05 17:02:00 No Notes: Do not exceed 4 gm/day. (Same as: Tylenol) Jarvis Hyde Acetaminophen 325 MG / Hydrocodone Bitartrate 5 MG Oral Tabl et [[place] 5/325] 2018-02-05 17:02:00 No Notes: (Same as: [place] 325/5) Do not exceed 4gm/day of acetaminophen. [facility] Amy nn Zofran 2018-02-05 17:02:00 No Notes: (Same as: Zofran) MEDICATION WASTE Product Size: 4 mg Product Wasted: ___ mg Jarvis Hyde Tylenol 2018-02-05 09:50:00 No Notes: Do not exceed 4 gm/day. (Same as: Tylenol) [facility] Barrett doxazosin 4 mg oral tablet 2018-02-05 09:25:00 Yes 4 mg = 1 tab, PO, Daily, # 30 tab, 0 Refill(s) [facility] Marc barkersantos Hydrochlorothiazide 25 MG / Losartan Potassium 100 MG Oral T ablet 2018-02-05 09:25:00 Yes 1 tab, PO, Daily, # 30 tab, 0 Refill(s) [facility] Barrett tamsulosin 0.4 mg oral capsule 2018-02-05 09:25:00 Yes 0.4 mg = 1 cap, PO, Daily, # 30 cap, 0 Refill(s) Sd makenziejuan Barrett Hydralazine Hydrochloride 100 MG Oral Tablet 2018-02-05 09:25:00 Yes 100 mg = 1 tab, PO, BID, # 60 tab, 0 Refill(s) [facility] Barrett metoprolol 100 mg oral tablet, extended release 2018-02-05 09:22 :00 Yes 100 mg = 1 tab, PO, Daily, # 30 tab, 0 Refill(s) Jarvis Hyde Glucagon 2018-02-05 09:10:00 No 1 mg, Route: IM, Drug form: PDR/INJ, PRN, Dosing Weight 90.909, kg, PRN Blood Glucose Results, Start date: 02/05/18 4:10:00 CDT, Duration: 30 day, Stop date: 03/07/18 3:09:00 GLASS TUBE BENDER Jarvis Hyde Dextrose 50% Syringe 2018-02-05 09:10:00 No 25 gm, 50 mL, Route: IVP, Drug Form: INJ, Dosing Weight 90.909, kg, PRN, PRN Blood Glucose Results, Start date: 02/05/18 4:10:00 CDT, Duration: 30 day, Stop date: 03/07/18 3:09:00 GLASS TUBE BENDER Jarvis Hyde NS + KCL 20mEq/L 1000ml (Premix) 1,000 mL 2018-02-05 09:09:00 No Notes: PREMIX IV - Do Not Alter WASTE: F/P - Sink; E - Municipal Trash Bin Jarvis Hyde Zofran 2018-02-05 09:09:00 No Notes: (Same as: Brian) MEDICATION WASTE Product Size: 4 mg Product Wasted: ___ mg [facility] Barrett Potassium Chloride 2018-02-05 09:00:00 No Notes: Infuse at a rate of 10 mEq/hr. (Same as: KCL) Jarvis Reyes nn Reglan 2018-02-05 07:41:00 No 10 mg, Route: IVP, Drug form: INJ, ONCE, Dosing Weight 90.909, kg, Priority: STAT, Start date: 02/05/18 2:41:00 CDT, Stop date: 02/05/18 2:41:00 CDT [facility] orijuan Hyde Potassium Chloride 2018-02-05 03:47:00 No Notes: (Same as: K-Dur 20) "Do Not Crush" For patients unable to swallow tablet, dissolve in one half glass of water. Allow about 2 minutes for the tablets to disintegrate. Stir before giving to prepare slurry and administer. Please exclude Patient s with feeding tube less than 14 Afghan (Dobhoff, J-tube etc) and pediatric and patients. With food and full glass of water [facility] Sodium Chloride 0.9% (Bolus) IV 2018-02-05 03:37:00 No 1,000 mL, 1000 ml/hr, Infuse Over: 1 hr, Route: IV, 1,000, Drug form: INJ, ONCE, Priority: STAT, Dosing Weight 90.909 kg, Start date: 02/04/18 22:37:00 CDT, Stop date: 02/04/18 22:37:00 CDT [facility] Ondansetron 2018-02-05 03:37:00 No Notes: (Same as: Zofran) MEDICATION WASTE Product Size: 4 mg Product Wasted: ___ mg [facility] Famotidine 2018-02-05 03:37:00 No Notes: (Same as: Pepcid) Can be dilute in 5-10cc NS IVP: Slow IV push over at least 2 minutes. [facility] predniSONE (DELTASONE) 20 mg tablet 2013-10-27 00:00:00 Yes Acute back pain 2 tabs PO Daily x 5d. [facility] HYDROcodone-acetaminophen (NORCO) 5-325 mg tablet 2013-10-27 00:00:00 Yes Acute back pain 1-2 tab PO q6 hr zoey ly PRN severe pain, not to exceed 4000mg acetaminophen daily. [facility] lisinopril (PRINIVIL) 20 mg tablet 2013-10-27 00:00:00 Yes Acute back pain 20mg QD Take 1 tablet by mouth daily. [facility] PROSCAR 5 MG TAB 2009-09-01 00:00:00 Yes BPH (benign prostatic hyperplasia) take 1 tablet (5 mg) by oral route once daily [facility] DOXAZOSIN 4 MG TAB 2009-09-01 00:00:00 Yes BPH (benign prostatic hyperplasia) take 1 tablet (4 mg) by oral route once daily [facility] Acetaminophen With Codeine (Tylenol With Codeine #3 Ta blet) 1 Each Tablet Acetaminophen With Codeine (Tylenol With Codeine #3 Tablet) 1 Each Tablet Yes 300 Every 4 Hours [facility] Docusate Sodium 100 Mg Capsule Docusate Sodium 100 Mg Capsule Yes 100 Twice A Day [facility] Doxazosin Mesylate 2 Mg Tablet Doxazosin Mesylate 2 Mg Tablet Yes [address] [facility] Finasteride 5 Mg Tablet Finasteride 5 Mg Tablet Yes 5 Daily [facility] Hydralazine Hcl 25 Mg Tab Hydralazine Hcl 25 Mg Tab Yes 25 Three Times A Day [facility] Levofloxacin (Levaquin) 500 Mg Tablet Levofloxacin (Levaquin) 500 M g Tablet Yes 500 Daily [facility] Losartan Potassium 100 Mg Tablet Losartan Potassium 100 Mg Tablet Yes 100 Daily [facility] Metoprolol Succinate 50 Mg Tab.er.24h Metoprolol Succinate 50 Mg Ta b.er.24h Yes 100 Daily [facility] Tamsulosin Hcl 0.4 Mg Cap.er.24h Tamsulosin Hcl 0.4 Mg Cap.er.24h Yes Daily [facility] Furosemide (Lasix) 40 Mg Tablet, 40 Mg Oral Furosemide (Lasix) 40 Mg Tablet, 40 Mg Oral 2018-04-05 00:00:00 No 40 Daily [facility] Potassium Chloride 10 Meq Tab.er.prt, 10 Meq Oral Pota ssium Chloride 10 Meq Tab.er.prt, 10 Meq Oral 2018-04-05 00:00:00 No 10 Daily [facility] Vital Signs Vital Name Observation Time Observation Value Comments Source Systolic (mm Hg) 2018-02-06 17:15:00 Gerson rial [facility] Diastolic (mm Hg) 2018-02-06 17:15:00 Mem orial [place] Respitory Rate 2018-02-06 17:15:00 Lynnori al Barrett Temperature Oral (F) 2018-02-06 17:15:00 98.2 F [facility] [place] Heart Rate 2018-02-06 17:15:00 [facility] [place] Respitory Rate 2018-02-06 12:38:00 Memori al [place] Systolic (mm Hg) 2018-02-06 12:38:00 Gerson rial [place] Diastolic (mm Hg) 2018-02-06 12:38:00 Mem orial [facility] Heart Rate 2018-02-06 12:38:00 [facility] Temperature Oral (F) 2018-02-06 12:38:00 98.3 F [facility] Heart Rate 2018-02-06 09:31:00 [facility] Temperature Oral (F) 2018-02-06 09:31:00 98.8 F [facility] Systolic (mm Hg) 2018-02-06 09:31:00 Gerson rial Barrett Diastolic (mm Hg) 2018-02-06 09:31:00 Mem orial Barrett Respitory Rate 2018-02-06 09:31:00 Memori al [place] Weight 2018-02-05 14:00:00 [facility] [place] Height 2018-02-05 09:20:00 177.8 cm [facility] Weight 2018-02-05 09:20:00 [facility] BMI Calculated 2018-02-05 09:20:00 Memori al [place] BMI Calculated 2018-02-05 01:44:00 Memori al [facility] Weight 2018-02-05 01:44:00 [facility] [place] Height 2018-02-05 01:44:00 177.8 cm [facility] Respitory Rate 2015-09-17 00:02:00 Memori al [facility] Heart Rate 2015-09-17 00:02:00 [facility] Systolic (mm Hg) 2015-09-17 00:02:00 Gerson rial [place] Diastolic (mm Hg) 2015-09-17 00:02:00 Mem orial [place] Temperature Oral (F) 2015-09-17 00:02:00 98.2 F [facility] [place] BMI Calculated 2015-09-16 19:16:00 Memori al [facility] Weight 2015-09-16 19:16:00 [facility] Height 2015-09-16 19:16:00 177.8 cm [facility] [place] Respitory Rate 2015-09-16 19:16:00 Memori al [facility] Temperature Oral (F) 2015-09-16 19:16:00 98.6 F [facility] Systolic (mm Hg) 2015-09-16 19:16:00 Gerson rial [place] Diastolic (mm Hg) 2015-09-16 19:16:00 Mem orial [place] Heart Rate 2015-09-16 19:16:00 [facility] Procedures Procedure Date / Time Performed Performing Clinician [facility] e Cystoscopy with retrograde pyelography 2018-06-05 00:00:00 IAM RODRIGUEZ [facility] X-ray of chest, two views 2018-06-03 00:00:00 IAM JUAREZ CH [facility] CT of abdomen and pelvis without contrast 2018-04-02 00:00:00 IAM MONIQUE [facility] Ultrasound, renal 2018-04-01 00:00:00 CORTNEY PRECIADO [facility] Dup-scan artl gerald abdl/pel/scrot&/RPR orgn lmt 2017-10-27 00 :00:00 CHUY AMAYAJOMAR [facility] Testicular ultrasound 2017-10-27 00:00:00 CHUY JOMAR [facility] Plan of Care Planned Activity Planned Date Details Comments Source Future Scheduled Test 2020-01-13 00:00:00 IMM Influenza Seas onal Jan to June (>/= 19 yrs) [code = IMM Influenza Seasonal Jan to June (>/= 19 yrs)] [facility] Scheduled Test 2011-12-28 00:00:00 Screening for manisha gnant neoplasm of colon (procedure) [code = 546238499] [facility] Scheduled Test 2009 00:00:00 IMM Pneumococcal A ge 65 and Up [code = IMM Pneumococcal Age 65 and Up] [facility] Encounters Start Date/Time End Date/Time Encounter Type Admission Type Attendi [facility] Care Department Encounter ID Source 2018-06-05 18:51:00 2018-06-09 17:46:00 Discharged Inpatient 3 IAM JUAREZ [facility] [id number] [facility] 2018-04-02 08:52:00 2018-04-05 12:55:00 Discharged Inpatient 1 BEREKET DOOLEY [facility] [id number] [facility] 2018-02-24 08:29:00 2018-02-24 08:29:00 Registered Clinic 3 CHUY JOMAR [facility] [id number] [facility] 2018-02-04 20:34:00 2018-02-06 15:21:00 Outpatient Winston Benoit [facility] [id number] 2017-10-27 16:07:00 2017-10-27 16:07:00 Registered Clinic DEEPALI BENTLEY [facility] [id number] [facility] 2017-07-07 15:14:00 2017-07-07 15:14:00 Registered Clinic DEEPALI SHAH [facility] [id number] [facility] 2015-09-16 14:03:00 2015-09-16 19:04:00 Outpatient Joseph Migue [place] [id number] Results Test Description Test Time Test Comments Results Result Comments Source CHEST 2 VIEWS 2019-12-10 18:56:00 [place] [address] Patient Name: MINI BLANCO MR #: [id number] : 1945 Age/Sex: 74/M Req #: [id number] Adm Physician: Ordered by: IAM JUAREZ MD Report #: [id number] Location: OR Room/Bed: Procedure: [id number] DX/CHEST 2 VIEWS Exam Date: 12/10/19 Exam Time: 1743 REPORT STATUS: Signed EXAMINATION: CHEST 2 VIEWS INDICATION: Preoperative evaluation of the lungs. COMPARISON: None FINDINGS: TUBES and LINES: None. LUNGS: Normal lung volumes. Lungs are clear. No consolidations. Bibasilar atelectasis. PLEURA: No pleural effusion or pneumothorax. HEART AND MEDIASTINUM: The cardiomediastinal silhouette is unremarkable. BONES AND SOFT TISSUES: No acute osseous lesion. Multilevel degenerative disease of the spine. Soft tissues are unremarkable. UPPER ABDOMEN: No free air under the diaphragm. IMPRESSION: No acute thoracic radiographic abnormality. Signed by: Tram Whiting MD on 12/10/2019 6:56 PM Dictated By: TRAM WHITING MD 55 Transcribed By: NELY on 12/10/191855 COPY TO: IAM JUAREZ MD RENAL RETROPERITONEAL COMP 2019-09-03 13:47:00 [place] [address] Patient Name: MINI BLANCO MR #: [id number] : 1945 Age/Sex: 73/M Req #: [id number] Adm Physician: Ordered by: IAM JUAREZ MD Report #: [id number] Location: Room/Bed: Procedure: [id number] US/US RENAL RETROPERITONEAL COMP Exam Date: 09/03/19 Exam Time: 0836 REPORT STATUS: Signed Renal ultrasound Clinical History: Gross hematuria Discussion: Sonographic evaluation of the kidneys is performed. The kidneys have normal size and cortical echogenicity. The right kidney measures 9.9 cm in length. The left kidney measures 9.6 cm in length. There is no focal renal mass, hydronephrosis, or shadowing renal calculus. No perinephric fluid collection is seen. The inferior wall of the bladder appears irregular, although this may be representing trabeculation from chronic bladder outlet obstruction. Bladder mass cannot be excluded. In addition, the prostate is enlarged with irregular margin. Impression: 1 enlarged prostate with irregular margin. Clinical correlation is recommended to rule out prostatic neoplasm. 2. The inferior wall of the bladder appears irregular and thickened, although this may represent trabeculation from bladder outlet obstruction, mass lesion cannot be excluded. Correlation with cystoscopy is recommended. Signed by: Dr. Mauri Macias MD on 09/03/2019 1:50 PM Dictated By: JUSTO MACIAS MD 135 Transcribed By: NELY on 09/03/19 1350 COPY TO: IAM JUAREZ MD RENAL RETROPERITONEAL COMP 2018-10-29 08:46:00 [place] [address] Patient Name: MINI BLANCO MR #: [id number] : 1945 Age/Sex: 72/M Req #: [id number] Adm Physician: Ordered by: IAM JUAREZ MD Report #: [id number] Location: Room/Bed: Procedure: [id number] US/US RENAL RETROPERITONEAL COMP Exam Date: 10/29/18 Exam Time: 821 REPORT STATUS: Signed EXAM: Renal Ultrasound INDICATION: HYDRONEPHROSIS / CHRONIC KIDNEY DISEASE COMPARISON: None TECHNIQUE: Transverse and longitudinal images of the kidneys and bladder were obtained. FINDINGS: Right Kidney: Length: 10.3 cm Appearance: Normal echogenicity. Collecting system: No hydronephrosis Stones: None Cyst/Mass: None Left Kidney: Length: 9.9 cm Appearance: Normal echogenicity. Collecting system: No hydronephrosis Stones: None Cyst/Mass: None Bladder: No mass or calculi. Prevoid estimated volume 119.97 cc. Bilateral ureteral jets seen. Prostate: Prostate is enlar ged, estimated volume of 55.6 cc IMPRESSION: No hydronephrosis or renal calculi. Prostatomegaly. Signed by: Liliana Andres MD on 10/29/2018 8:48 AM Dictated By: LILIANA ANDRES MD 7 Transcribed By: NELY on 10/29/18847 COPY TO: IAM JUAREZ MD HAND THREE VIEWS BILATERAL 2018-08-10 09:28:00 [place] [address] Patient Name: MINI BLANCO MR #: [id number] : 1945 Age/Sex: 72/M Req #: [id number] Adm Physician: Ordered by: ALISE ACEVEDO, GEREMIAS Rolle MD Report #: [id number] Location: [facility] Room/Bed: Procedure: [id number] DX/HAND THREE VIEWS BILATERAL Exam Date: 08/10/18 Exam Time: 0820 REPORT STATUS: Signed Exam: Bilateral hand series 3 views each dated 08/10/2018 History: Pain Comparison: None available Findings: There are metallic densities present within the soft tissues of the left hand overlying the proximal fifth, proximal first metacarpal and distal portion of the proximal phalanx of the fourth digit. Posttraumatic irregularity of the distal phalanx of the third digit on the left is present. There is also posttraumatic degenerative change of the distal aspect of the left first metacarpal. No acute bony abnormality is seen. There are no erosions or soft tissue calcifications. Impression: No acute bony abnormality or erosive changes. Metallic densities as described above on the left hand. Signed by: Dr. Cornel Rodriguez DO on 08/10/2018 9:31 AM Dictated By: CORNEL RODRIGUEZ DO 0 Transcribed By: NELY on 08/10/18930 COPY TO: GEREMIAS HAND MAMMOGRAPHY DIGITAL DX [facility] 2018-07-09 09:40:00 [place] [address] Patient Name: MINI BLANCO MR #: [id number] : 1945 Age/Sex: 72/M Req #: [id number] Adm Physician: Ordered by: ALISE ACEVEDO, GEREMIAS Rolle MD Report #: [id number] Location: US Room/Bed: Procedure: [id number] MG/MAMMOGRAPHY DIGITAL DX [facility] Exam Date: 07/09/18 Exam Time: 832 REPORT STATUS: Signed #[id number] - [id number] #MALE UNILATERAL LEFT DIGITAL DIAGNOSTIC MAMMOGRAM POST-PROCEDURE IMAGING FOR MARKER PLACEMENT: 07/09/2018 Comparison is made to exams dated: 07/09/2018 ultrasound biopsy and 06/22/2018 mammogram - [facility]. Current study contains 2 films. The subareolar density is again noted. Biopsy clip is anterior to the tissue, having migrated away from the biopsy site. No significant masses, calcifications, or other findings are seen in the breast. IMPRESSION: SUSPICIOUS OF MALIGNANCY Follow-up after the biopsy. Follow-up with ACR/ACS guidelines. Cornel Rodriguez Jr., D.O. cw/:07/09/2018 14:36:35 Torpedo Worker: Bryant MCNEIL)(M), [facility] Mammogram BI-RADS: 4b Suspicious abnormality - intermediate suspicion of malignancy Dictated By: CORNEL RODRIGUEZ DO 1436 Transcribed By: PAM on 07/09/18 1436 COPY TO: GEREMIAS HAND BX BRST 1ST LESION US IMAG-LT 2018-07-09 09:39:00 [place] [id number] [place] [id number] Patient Name: MINI BLANCO MR #: [id number] : 1945 Age/Sex: 72/M Req #: [id number] Adm Physician: Ordered by: ALISE ACEVEDO, GEREMIAS Rolle MD Report #: [id number] Location: US Room/Bed: Procedure: [id number] US/BX BRST 1ST LESION US IMAG-LT Exam Date: Exam Time: REPORT STATUS: Signed THIS REPORT HAS BEEN AMENDED. #[id number] - [id number] ULTRASOUND GUIDED BIOPSY: 07/09/2018 PATIENT CONSENT: According to [facility] requirements, a time out was performed, correct site was localized and the patient was consented. PROCEDURE DESCRIPTION: Using full barrier sterile technique, 1% Lidocaine local anesthesia, and real time ultrasound guidance, the mass in the retroareolar region of the left breast was biopsied using a 14 ga core device. A total of 4 core biopsies were obtained. Specimens were submitted for histology. A micromarker was placed at the biopsy site for future reference. A sterile bandage was applied at the entry site. The patient was sent for a post biopsy mammogram with no immediate complications noted. Correlation is made to exams dated: 06/22/2018 mammogram and 06/22/2018 ultrasound - [facility]. IMPRESSION: ULTRASOUND GUIDED BIOPSY Follow-up with ACR/ACS guidelines. Cornel weber/jermainrad:07/09/2018 14:13:37 Imaging Mary hnologist: Benjamin Liu RDAL, [facility] [id number] AMENDMENT: 07/16/2018 Cornel Rodriguez Jr., D.O. Pathology results from the ultrasound guided biopsy are negative for malignancy with the mass representing gynecomastia. Dictated By: CORNEL RODRIGUEZ DO 1413 Transcribed By: PAM on 07/16/18 0802 COPY TO: GEREMIAS HAND MAMMOGRAPHY DIGITAL DX BILAT 2018-06-22 14:59:00 [place] [address] Patient Name: MINI BLANCO MR #: [id number] : 1945 Age/Sex: 72/M Req #: [id number] [facility] Physician: Ordered by: GEREMIAS HAND MD, MD Report #: [id number] Location: Room/Bed: Procedure: [id number] MG/MAMMOGRAPHY DIGITAL DX BILAT Exam Date: 06/22/18 Exam Time: 1409 REPORT STATUS: Signed #[id number] - MGDXBIL #MALE BILATERAL DIGITAL DIAGNOSTIC MAMMOGRAM WITH CAD: 06/22/2018 No prior exams were available for comparison. Current study contains 4 films. Current study was also evaluated with a Computer Aided Detection (CAD) system. Study was performed to correlate with the ultrasound findings of a possible mass in the subareolar region of the left breast. There is an irregular asymmetry in the left breast central to the nipple in the retroareolar region. No other significant masses, calcifications, or other findings are seen in either breast. IMPRESSION: INCOMPLETE: NEEDS ADDITIONAL IMAGING EVALUATION The irregular asymmetry in the left breast is indeterminate. An ultrasound guided biopsy is recommended. Case discussed with Dr. Hand's Software Tester, Tish Norris. Cornel Rodriguez Jr., D.O. cw/:06/26/2018 11:48:37 Torpedo Worker: Bryant MCNEIL)(M), [facility] Mammogram BI-RADS: 0 Indeterminate Dictated By: CORNEL RODRIGUEZ DO 1148 Transcribed By: PAM on 06/26/18 1148 COPY TO: GEREMIAS HAND US BREAST LIMITED LEFT 2018-06-22 14:59:00 [place] [address] Patient Name: MINI BLANCO MR #: [id number] : 1945 Age/Sex: 72/M Req #: [id number] Adm Physician: Ordered by: GEREMIAS HAND MD, MD Report #: [id number] Location: Room/Bed: Procedure: [id number] US/US BREAST LIMITED LEFT Exam Date: Exam Time: REPORT STATUS: Signed #[id number] - USBRELIMLT ULTRASOUND OF THE LEFT BREAST : 06/22/2018 Comparison is made to exam dated: 06/22/2018 mammogram - [facility]. Color flow and real-time ultrasound were performed on the left breast. Patient complains of left breast pain. There is an ill defined hypoechoic mass in the subareolar region of the left breast. The measurements are 2.1 x 1.2 x 1.6 cm. IMPRESSION: SUSPICIOUS OF MALIGNANCY Mass in the subareolar region of the left breast where the patient complains of pain. An ultrasound guided biopsy is recommended. Findings discussed with the patient and his . A phone ca ll was made to the physician's office and the case discussed with Software Tester, Tish Norris. Cronel Rodriguez Jr., D.O. cw/:06/26/2018 11:55:08 Torpedo Worker: Benjamin Liu RDMS, [facility] letter sent: Biopsy Required Ultrasound BI-RADS: 4c Suspicious abnormality - moderate concern but not classic for malignancy Dictated By: CORNEL RODRIGUEZ DO 1155 Transcribed By: PAM on 06/26/18 1155 COPY TO: GEREMIAS HAND Sodium Level 2018-06-09 06:39:00 Test Item Sodium Level (test code = 2951-2) 141 136-145 [facility] Plbtu1415-56-92 06:39:00* Test Item Value Reference Range Interpretation Comments Potassium Level (test code = 2823-3) 4.2 3.5-5.1 [facility]bergChloride Entta0320-57-17 06:39:00* Test Item Value Reference Range Interpretation Comments Chloride Level (test code = 2075-0) 105 98-107 [facility] KlebergCarbon Dioxide Bocxc8321-30-32 06:39:00* Test Item Value Reference Range Interpretation Comments Carbon Dioxide Level (test code = 2028-9) 31 22-29 H [facility] KlebergAnion Cwv5610-70-52 06:39:00* Test Item Value Reference Range Interpretation Comments Anion Gap (test code = 72427-9) 9.2 8-16 [facility]bergBlood Urea Pwbuigka5375-34-81 06:39:00* Test Item Value Reference Range Interpretation Comments Blood Urea Nitrogen (test code = 3094-0) 17 7-26 [facility] KlebergCreatinine2019-02-26 06:39:00* Test Item Value Reference Range Interpretation Comments Creatinine (test code = 2160-0) 1.29 0.72-1.25 H [facility]bergBUN/Creatinine Dkllq6865-62-49 06:39:00* Test Item Value Reference Range Interpretation Comments BUN/Creatinine Ratio (test code = 3097-3) 13 6-25 [facility] KlebergEstimat Glomerular Filtration Rate 2018-06-09 06:39:00* Test Item Value Reference Range Interpretation Comments Estimat Glomerular Filtration Rate (test code = 453546280) 55 >60 L Ranges were taken from the National Kidney Disease Education Program and the [facility] Kidney Foundation literature.Reference ranges:60 or greater: Gbowjz85-57 ( for 3 consecutive months): Chronic kidney disease 15 or less: Kidney failureCHRISTUS [facility]ohn [facility] – KlebergGlucose Rqcsc3245-40-20 06:39:00* Test Item Value Reference Range Interpretation Comments Glucose Level (test code = STS4166) 101 74-118 [facility] KlebergCalcium Jlzrg7411-82-58 06:39:00* Test Item Value Reference Range Interpretation Comments Calcium Level (test code = 98878-3) 9.7 8.4-10.2 [facility]bergWhite Blood Mfnzm1074-02-98 06:13:00* Test Item Value Reference Range Interpretation Comments White Blood Count (test code = 6690-2) 8.20 4.8-10.8 [facility]bergRed Blood Ywcbf9625-31-25 06:13:00* Test Item Value Reference Range Interpretation Comments Red Blood Count (test code = 789-8) 3.48 4.3-5.7 L [facility]bergHemoglobin2019-02-26 06:13:00* Test Item Value Reference Range Interpretation Comments Hemoglobin (test code = 03676-5) 11.0 14.0-18.0 L [facility]bergHematocrit2019-02-26 06:13:00* Test Item Value Reference Range Interpretation Comments Hematocrit (test code = 4544-3) 33.6 38.2-49.6 L [facility] KlebergMean Corpuscular Uwvhis9112-67-12 06:13:00* Test Item Value Reference Range Interpretation Comments Mean Corpuscular Volume (test code = 787-2) 96.6 81-99 [facility]bergMean Corpuscular Ldssqqasav8398-85-97 06:13:00* Test Item Value Reference Range Interpretation Comments Mean Corpuscular Hemoglobin (test code = 785-6) 31.6 28-32 [facility]bergMean Corpuscular Hemoglobin Concent 2018-06-09 06:13:00* Test Item Value Reference Range Interpretation Comments Mean Corpuscular Hemoglobin Concent (test code = 786-4) 32.7 31-35 [facility]bergRed Cell Distribution Gqfma2231-43-10 06:13:00* Test Item Value Reference Range Interpretation Comments Red Cell Distribution Width (test code = 67637-7) 13.8 11.7 -14.4 [facility] KlebergPlatelet Yknvf2725-32-30 06:13:00* Test Item Value Reference Range Interpretation Comments Platelet Count (test code = 777-3) 223 140-360 [facility]bergNeutrophils (%) (Auto)2018-06-09 06:13:00 * Test Item Value Reference Range Interpretation Comments Neutrophils (%) (Auto) (test code = 17695-4) 67.3 38.7-80.0 [facility]bergLymphocytes (%) (Auto)2018-06-09 06:13:00 * Test Item Value Reference Range Interpretation Comments Lymphocytes (%) (Auto) (test code = 736-9) 21.3 18.0-39.1 [facility]bergMonocytes (%) (Auto)2018-06-09 06:13:00* Test Item Value Reference Range Interpretation Comments Monocytes (%) (Auto) (test code = 5905-5) 8.7 4.4-11.3 [facility]bergEosinophils (%) (Auto)2018-06-09 06:13:00 * Test Item Value Reference Range Interpretation Comments Eosinophils (%) (Auto) (test code = 713-8) 1.7 0.0-6.0 [facility]bergBasophils (%) (Auto)2018-06-09 06:13:00* Test Item Value Reference Range Interpretation Comments Basophils (%) (Auto) (test code = 706-2) 0.6 0.0-1.0 [facility] KlebergIM GRANULOCYTES %2018-06-09 06:13:00* Test Item Value Reference Range Interpretation Comments IM GRANULOCYTES % (test code = IM GRANULOCYTES %) 0.4 0.0- 1.0 [facility]bergNeutrophils # (Auto)2018-06-09 06:13:00* Test Item Value Reference Range Interpretation Comments Neutrophils # (Auto) (test code = 751-8) 5.5 2.1-6.9 [facility] KlebergLymphocytes # (Auto)2018-06-09 06:13:00* Test Item Value Reference Range Interpretation Comments Lymphocytes # (Auto) (test code = 24320-5) 1.8 1.0-3.2 [facility]bergMonocytes # (Auto)2018-06-09 06:13:00* Test Item Value Reference Range Interpretation Comments Monocytes # (Auto) (test code = 742-7) 0.7 0.2-0.8 [facility]bergEosinophils # (Auto)2018-06-09 06:13:00* Test Item Value Reference Range Interpretation Comments Eosinophils # (Auto) (test code = 711-2) 0.1 0.0-0.4 [facility]bergBasophils # (Auto)2018-06-09 06:13:00* Test Item Value Reference Range Interpretation Comments Basophils # (Auto) (test code = 704-7) 0.1 0.0-0.1 [facility] KlebergAbsolute Immature Granulocyte (auto 2018-06-09 06:13:00* Test Item Value Reference Range Interpretation Comments Absolute Immature Granulocyte (auto (gino t code = Absolute Immature Granulocyte (auto) 0.03 0-0.1 [facility] KlebergCHEST 2 JHNLL3209-18-20 13:09:00 [facility] [address] [place] [address] Patient Name: MINI BLANCO MR #: [id number] : 1945 Age/Sex: 72/M Req #: [id number] Adm Physician: Ordered by: IAM JUAREZ MD Report #: [id number] Location: OR Room/Bed: Procedure: [id number] DX/CHES T 2 VIEWS Exam Date: 06/03/18 Exam Time: 1249 REPORT STATUS: Signed EXAM: CHEST 2 EWS, PA and lateral DATE: 06/03/2018 Time stamp on exam: 12:48 PM INDICATION: Preoperative COMPARISON: None FINDINGS: LINES/TUBES: None LUNGS: No consolidations or edema. PLEURA: No effusions or pneumothorax. HEA RT AND MEDIASTINUM: Normal size and contour. BONES AND SOFT TISSUES: No acu te findings with mild degenerative changes of the spine. IMPRESSION: No acute thoracic abnormality. Signed by: Dr. Cornel Rodriguez DO on 06/03/2018 1:11 PM Dictated By: CORNEL RODRIGUEZ DO 1311 Transcribed By: NELY on 06/03/18 1311 COPY TO: IAM JUAREZ MD Sodium Kmrli5838-40-78 06:48:00* Test Item Value Reference Range Interpretation Comments Sodium Level (test code = 2951-2) 143 136-145 [facility] KlebergPotassium Oihaw6344-14-95 06:48:00* Test Item Value Reference Range Interpretation Comments Potassium Level (test code = 2823-3) 3.4 3.5-5.1 L [facility] KlebergChloride Xzrba5413-60-31 06:48:00* Test Item Value Reference Range Interpretation Comments Chloride Level (test code = 2075-0) 107 98-107 [facility] KlebergCarbon Dioxide Lymgq1899-44-62 06:48:00* Test Item Value Reference Range Interpretation Comments Carbon Dioxide Level (test code = 2028-9) 28 22-29 [facility] KlebergAnion Bfd9276-40-87 06:48:00* Test Item Value Reference Range Interpretation Comments Anion Gap (test code = 24552-7) 11.4 8-16 [facility] KlebergBlood Urea Ibwgxkva8948-09-52 06:48:00* Test Item Value Reference Range Interpretation Comments Blood Urea Nitrogen (test code = 3094-0) 28 7-26 H [facility] KlebergCreatinine2018-12-23 06:48:00* Test Item Value Reference Range Interpretation Comments Creatinine (test code = 2160-0) 2.27 0.72-1.25 H [facility] KlebergBUN/Creatinine Ivvrc3422-98-26 06:48:00* Test Item Value Reference Range Interpretation Comments BUN/Creatinine Ratio (test code = 3097-3) 12 6-25 [facility] KlebergEstimat Glomerular Filtration Rate 2018-04-05 06:48:00* Test Item Value Reference Range Interpretation Comments Estimat Glomerular Filtration Rate (test code = 309768613) 28 >60 L Ranges were taken from the National Kidney Disease Education Program and the [facility] Foundation literature.Reference ranges:60 or greater: Pdcqam12-88 ( for 3 consecutive months): Chronic kidney disease 15 or less: Kidney failureCHRISTUS Spohn Hospital – KlebergGlucose Rkngv1516-78-20 06:48:00* Test Item Value Reference Range Interpretation Comments Glucose Level (test code = QMN2156) 95 74-118 [facility] KlebergCalcium Obwfc2184-46-27 06:48:00* Test Item Value Reference Range Interpretation Comments Calcium Level (test code = 58760-3) 9.2 8.4-10.2 [facility] KlebergTotal Rkfbnysay8901-84-44 07:42:00* Test Item Value Reference Range Interpretation Comments Total Bilirubin (test code = 1975-2) 0.6 0.2-1.2 [facility] KlebergAspartate Amino Transf (AST/SGOT) 2018-04-04 07:42:00* Test Item Value Reference Range Interpretation Comments Aspartate Amino Transf (AST/SGOT) (test code = Aspartate Amino Transf (AST/SGOT)) 11 5-34 [facility] KlebergAlanine Aminotransferase (ALT/SGPT) 2018-04-04 07:42:00* Test Item Value Reference Range Interpretation Comments Alanine Aminotransferase (ALT/SGPT) (test code = 1742-6) 13 0-55 [facility] KlebergTotal Fdehfro4715-32-08 07:42:00* Test Item Value Reference Range Interpretation Comments Total Protein (test code = 2885-2) 6.2 6.5-8.1 L [facility] KlebergAlbumin2018-12-22 07:42:00* Test Item Value Reference Range Interpretation Comments Albumin (test code = 1751-7) 3.2 3.5-5.0 L [facility] KlebergGlobulin2018-12-22 07:42:00* Test Item Value Reference Range Interpretation Comments Globulin (test code = 67662-6) 3.0 2.3-3.5 [facility] KlebergAlbumin/Globulin Yzesu0732-75-71 07:42:00 * Test Item Value Reference Range Interpretation Comments Albumin/Globulin Ratio (test code = 1759-0) 1.1 0.8-2.0 [facility] KlebergAlkaline Debspubwqpb0871-37-74 07:42:00* Test Item Value Reference Range Interpretation Comments Alkaline Phosphatase (test code = 6768-6) 47 40-150 [facility] KlebergTotal Kvrasavok0444-90-25 07:42:00* Test Item Value Reference Range Interpretation Comments Total Bilirubin (test code = 1975-2) 0.6 0.2-1.2 [facility] KlebergAspartate Amino Transf (AST/SGOT) 2018-04-04 07:42:00* Test Item Value Reference Range Interpretation Comments Aspartate Amino Transf (AST/SGOT) (test code = Aspartate Amino Transf (AST/SGOT)) 11 [facility] KlebergAlanine Aminotransferase (ALT/SGPT) 2018-04-04 07:42:00* Test Item Value Reference Range Interpretation Comments Alanine Aminotransferase (ALT/SGPT) (test code = 1742-6) 13 0-55 [facility] KlebergTotal Izkwoga3519-06-68 07:42:00* Test Item Value Reference Range Interpretation Comments Total Protein (test code = 2885-2) 6.2 6.5-8.1 L [facility] KlebergAlbumin2018-12-22 07:42:00* Test Item Value Reference Range Interpretation Comments Albumin (test code = 1751-7) 3.2 3.5-5.0 L [facility] KlebergGlobulin2018-12-22 07:42:00* Test Item Value Reference Range Interpretation Comments Globulin (test code = 58172-8) 3.0 2.3-3.5 [facility] KlebergAlbumin/Globulin Nubze2463-50-19 07:42:00 * Test Item Value Reference Range Interpretation Comments Albumin/Globulin Ratio (test code = 1759-0) 1.1 0.8-2.0 [facility] KlebergAlkaline Xyqcsjlrmcn4449-23-47 07:42:00* Test Item Value Reference Range Interpretation Comments Alkaline Phosphatase (test code = 6768-6) 47 40-150 [facility] KlebergWhite Blood Xsckt7461-32-90 06:00:00* Test Item Value Reference Range Interpretation Comments White Blood Count (test code = 6690-2) 6.54 4.8-10.8 [facility] KlebergRed Blood Ntyic4415-79-66 06:00:00* Test Item Value Reference Range Interpretation Comments Red Blood Count (test code = 789-8) 3.28 4.3-5.7 L [facility] KlebergHemoglobin2018-12-21 06:00:00* Test Item Value Reference Range Interpretation Comments Hemoglobin (test code = 27834-7) 10.0 14.0-18.0 L [facility] KlebergHematocrit2018-12-21 06:00:00* Test Item Value Reference Range Interpretation Comments Hematocrit (test code = 4544-3) 30.8 38.2-49.6 L [facility] KlebergMean Corpuscular Vfyoto8241-03-38 06:00:00* Test Item Value Reference Range Interpretation Comments Mean Corpuscular Volume (test code = 787-2) 93.9 81-99 [facility] KlebergMean Corpuscular Ojdkckplft8164-66-53 06:00:00* Test Item Value Reference Range Interpretation Comments Mean Corpuscular Hemoglobin (test code = 785-6) 30.5 28-32 [facility] KlebergMean Corpuscular Hemoglobin Concent 2018-04-03 06:00:00* Test Item Value Reference Range Interpretation Comments Mean Corpuscular Hemoglobin Concent (test code = 786-4) 32.5 31-35 [facility] KlebergRed Cell Distribution Vlzhf4032-10-06 06:00:00* Test Item Value Reference Range Interpretation Comments Red Cell Distribution Width (test code = 06543-5) 13.7 11.7 -14.4 [facility] KlebergPlatelet Tanjj1975-28-85 06:00:00* Test Item Value Reference Range Interpretation Comments Platelet Count (test code = 777-3) 218 140-360 [facility] KlebergNeutrophils (%) (Auto)2018-04-03 06:00:00 * Test Item Value Reference Range Interpretation Comments Neutrophils (%) (Auto) (test code = 87370-5) 60.5 38.7-80.0 [facility] KlebergLymphocytes (%) (Auto)2018-04-03 06:00:00 * Test Item Value Reference Range Interpretation Comments Lymphocytes (%) (Auto) (test code = 736-9) 29.8 18.0-39.1 [facility] KlebergMonocytes (%) (Auto)2018-04-03 06:00:00* Test Item Value Reference Range Interpretation Comments Monocytes (%) (Auto) (test code = 5905-5) 6.1 4.4-11.3 [facility] KlebergEosinophils (%) (Auto)2018-04-03 06:00:00 * Test Item Value Reference Range Interpretation Comments Eosinophils (%) (Auto) (test code = 713-8) 2.6 0.0-6.0 [facility] KlebergBasophils (%) (Auto)2018-04-03 06:00:00* Test Item Value Reference Range Interpretation Comments Basophils (%) (Auto) (test code = 706-2) 0.8 0.0-1.0 [facility] KlebergIM GRANULOCYTES %2018-04-03 06:00:00* Test Item Value Reference Range Interpretation Comments IM GRANULOCYTES % (test code = IM GRANULOCYTES %) 0.2 0.0- 1.0 [facility] KlebergNeutrophils # (Auto)2018-04-03 06:00:00* Test Item Value Reference Range Interpretation Comments Neutrophils # (Auto) (test code = 751-8) 4.0 2.1-6.9 [facility] KlebergLymphocytes # (Auto)2018-04-03 06:00:00* Test Item Value Reference Range Interpretation Comments Lymphocytes # (Auto) (test code = 40226-8) 2.0 1.0-3.2 [facility] KlebergMonocytes # (Auto)2018-04-03 06:00:00* Test Item Value Reference Range Interpretation Comments Monocytes # (Auto) (test code = 742-7) 0.4 0.2-0.8 [facility] KlebergEosinophils # (Auto)2018-04-03 06:00:00* Test Item Value Reference Range Interpretation Comments Eosinophils # (Auto) (test code = 711-2) 0.2 0.0-0.4 [facility]bergBasophils # (Auto)2018-04-03 06:00:00* Test Item Value Reference Range Interpretation Comments Basophils # (Auto) (test code = 704-7) 0.1 0.0-0.1 [facility] KlebergAbsolute Immature Granulocyte (auto 2018-04-03 06:00:00* Test Item Value Reference Range Interpretation Comments Absolute Immature Granulocyte (auto (gino t code = Absolute Immature Granulocyte (auto) 0.01 0-0.1 [facility] KlebergCT ABDOMEN/PELVIS SG7445-90-20 12:02:00 [facility] [address] [place] [address] Patient Name: MINI BLANCO MR #: [id number] : 1945 Age/Sex: 72/M Req #: [id number] [facility] Physician: BEREKET DOOLEY MD Ordered by: IAM JUAREZ MD Report #: [id number] Location: [facility] Room/Bed: [place] [address] Procedure: [id number] CT/CT ABDOMEN/PELVIS WO Exam Date: 04/02/18 Exam Time: 103 0 REPORT STATUS: Signed EXAMINAT ION: CT of the abdomen and pelvis without contrast. TECHNIQUE: Spiral CT i mages of the abdomen and pelvis were performed from the lung bases to the less er trochanters. No intravenous contrast was given per renal stone protocol. Coronal and sagittal reformatted images were obtained. COMPARISON: Renal ul trasound 04/01/2018 CLINICAL HISTORY:Stone protocol, evaluate for hydroneph rosis. Evaluate prostate catheter. DISCUSSION: ABSENCE OF INTRAVENOU S CONTRAST DECREASES SENSITIVITY FOR DETECTION OF FOCAL LESIONS AND VASCULAR P ATHOLOGY. ABDOMEN/PELVIS: LOWER THORAX: Subsegmental atelectasis in th e dependent lower lobes. No pleural or pericardial effusion. HEPATOBILIA RY:No focal hepatic lesions. No biliary ductal dilation. The gallbladder is normal. SPLEEN: No splenomegaly. PANCREAS: No focal masses or ductal d ilatation. ADRENALS: No adrenal nodules. KIDNEYS/URETERS: Moderate tate ateral hydronephrosis without obstructing calculus. No gross renal mass lesion . PELVIC ORGANS/BLADDER: Blair catheter appropriately positioned within the urinary bladder, with air in the nondependent portion of the bladder. Joaquina ntric bladder wall thickening. 4.3 cm hyperdense nodule in the urinary bladder with leftward displacement of the retention balloon of the Blair catheter. The prostate measures 4.5 cm transversely. PERITONEUM/RETROPERITONEUM: No asc ites. No pneumoperitoneum. LYMPH NODES: No pelvic sidewall, retroperitoneal , or mesenteric lymphadenopathy. VESSELS: Limited evaluation without intr avenous contrast. Atherosclerotic calcification of the abdominal aorta without aneurysmal dilatation. GI TRACT: The large bowel shows no evidence of dist ention or wall thickening. There is no small bowel dilatation to suggest obstr uction. BONES AND SOFT TISSUES: Small bilateral fat-containing inguinal her nias area otherwise no focal soft tissue abnormalities. No osseous destructive lesions. Mild degenerative disc changes and facet arthropathy of the lumbar s pine. Increased trabeculation along the left symphysis pubis and right iliac w ing may indicate intraosseous hemangiomas. IMPRESSION: Moderate tate ateral hydronephrosis without obstructing calculus. Concentric bladder wal l thickening with a 4 cm hyperdense nodule within the urinary bladder lumen. T his may represent a large blood clot, urothelial tumor, or prostatic tumor wit h bladder extension and results in leftward displacement of the Blair catheter retention balloon. Cystoscopy may be of benefit for further evaluation. Signed by: Dr. Cecilia Rosado M.D. on 04/02/2018 12:11 PM Dictated By: CATRACHITA ROSADO MD 1211 Tra nscribed By: NELY on 04/02/18 1211 COPY TO: IAM JUAREZ MD Urine CQC0267-72-17 15:29:00* Test Item Value Reference Range Interpretation Comments Urine WBC (test code = 5821-4) NONE 0-5 [facility] KlebergUrine DID1859-95-59 15:29:00* Test Item Value Reference Range Interpretation Comments Urine RBC (test code = 61914-5) 21-50 0-5 H [facility] KlebergUrine Xaxnqewz7798-31-23 15:29:00* Test Item Value Reference Range Interpretation Comments Urine Bacteria (test code = 59375-5) NONE NONE [facility] KlebergUrine Epithelial Fdrdm0205-94-74 15:29:00 * Test Item Value Reference Range Interpretation Comments Urine Epithelial Cells (test code = 55601-4) NONE NONE [facility] KlebergUrine FIK8475-57-70 15:29:00* Test Item Value Reference Range Interpretation Comments Urine WBC (test code = 5821-4) NONE 0-5 [facility] KlebergUrine LEQ2336-13-56 15:29:00* Test Item Value Reference Range Interpretation Comments Urine RBC (test code = 13818-5) 21-50 0-5 H [facility] KlebergUrine Oywsflzl9689-34-76 15:29:00* Test Item Value Reference Range Interpretation Comments Urine Bacteria (test code = 35482-8) NONE NONE [facility] KlebergUrine Epithelial Zlxpp0871-79-77 15:29:00 * Test Item Value Reference Range Interpretation Comments Urine Epithelial Cells (test code = 46593-6) NONE NONE [facility] KlebergUrine Kkkbl8405-50-04 15:13:00* Test Item Value Reference Range Interpretation Comments Urine Color (test code = 5778-6) YELLOW YELLOW [facility] KlebergUrine Lyejghc4832-82-24 15:13:00* Test Item Value Reference Range Interpretation Comments Urine Clarity (test code = 13053-3) SL CLOUDY CLEAR H [facility] KlebergUrine Specific Rlklijy8661-62-86 15:13:00 * Test Item Value Reference Range Interpretation Comments Urine Specific [place] (test code = 5811-5) 1.010 1.010-1.02 5 [facility] [facility] iE6590-08-50 15:13:00* Test Item Value Reference Range Interpretation Comments Urine pH (test code = 81129-9) 7 5-7 [facility]uk[facility] Ttjwuoxu5684-84-56 15:13:00* Test Item Value Reference Range Interpretation Comments Urine Leukocyte Esterase (test code = 5799-2) NEGATIVE NEGATIVE [facility] Wkzvtpn9340-70-66 15:13:00* Test Item Value Reference Range Interpretation Comments Urine Nitrite (test code = 52501-5) NEGATIVE NEGATIVE [facility] Zhywkvs7996-25-20 15:13:00* Test Item Value Reference Range Interpretation Comments Urine Protein (test code = 5804-0) NEGATIVE NEGATIVE [facility] Glucose (UA)2018-04-01 15:13:00* Test Item Value Reference Range Interpretation Comments Urine Glucose (UA) (test code = 2349-9) NEGATIVE NEGATIVE [facility] Cxrjwwe6400-10-22 15:13:00* Test Item Value Reference Range Interpretation Comments Urine Ketones (test code = 44324-1) NEGATIVE NEGATIVE [facility] Tyaxzwujkaaa6856-76-92 15:13:00* Test Item Value Reference Range Interpretation Comments Urine Urobilinogen (test code = 30841-5) 0.2 0.2-1 [facility] Osgvelqya7212-08-26 15:13:00* Test Item Value Reference Range Interpretation Comments Urine Bilirubin (test code = 1978-6) NEGATIVE NEGATIVE [facility] Zharj4951-06-97 15:13:00* Test Item Value Reference Range Interpretation Comments Urine Blood (test code = 77583-7) 4+ NEGATIVE H [facility] Kxuvk0056-83-16 15:13:00* Test Item Value Reference Range Interpretation Comments Urine Color (test code = 5778-6) YELLOW YELLOW [facility] Pzxqyjh2361-49-42 15:13:00* Test Item Value Reference Range Interpretation Comments Urine Clarity (test code = 67648-2) SL CLOUDY CLEAR H [facility] Specific Tyqrxeg0120-70-75 15:13:00 * Test Item Value Reference Range Interpretation Comments Urine Specific [place] (test code = 5811-5) 1.010 1.010-1.02 5 [facility] zE5876-78-72 15:13:00* Test Item Value Reference Range Interpretation Comments Urine pH (test code = 87375-2) 7 5-7 [facility] Leukocyte Pfxqvqzr9239-47-68 15:13:00* Test Item Value Reference Range Interpretation Comments Urine Leukocyte Esterase (test code = 5799-2) NEGATIVE NEGATIVE [facility] Jsmqycu0322-09-46 15:13:00* Test Item Value Reference Range Interpretation Comments Urine Nitrite (test code = 07817-8) NEGATIVE NEGATIVE [facility] Depldts9674-99-47 15:13:00* Test Item Value Reference Range Interpretation Comments Urine Protein (test code = 5804-0) NEGATIVE NEGATIVE [facility] Glucose (UA)2018-04-01 15:13:00* Test Item Value Reference Range Interpretation Comments Urine Glucose (UA) (test code = 2349-9) NEGATIVE NEGATIVE [facility] Nelhgcw1306-09-01 15:13:00* Test Item Value Reference Range Interpretation Comments Urine Ketones (test code = 46379-2) NEGATIVE NEGATIVE [facility] Lerzqaiimqjk9516-34-23 15:13:00* Test Item Value Reference Range Interpretation Comments Urine Urobilinogen (test code = 99916-6) 0.2 0.2-1 [facility] Mrqkqwzss7459-37-00 15:13:00* Test Item Value Reference Range Interpretation Comments Urine Bilirubin (test code = 1978-6) NEGATIVE NEGATIVE [facility] Bybaj7531-55-18 15:13:00* Test Item Value Reference Range Interpretation Comments Urine Blood (test code = 86011-6) 4+ NEGATIVE H [facility] RENAL RETROPERITONEAL RZTV5207-36-87 12:33:00 [facility] [address] [place] [address] Patient Name: MINI BLANCO MR #: [id number] : 1945 Age/Sex: 72/M Req #: [id number] Adm Physician: BEREKET DOOLEY MD Ordered by: CORTNEY PRECIADO MD Report #: [id number] Location: [facility] Room/Bed: [place] [address] Procedure: [id number] U S/US RENAL RETROPERITONEAL COMP Exam Date: 04/01/18 Exam Time: 1158 REPORT STATUS: Sign ed EXAM: RENAL ULTRASOUND Date: 04/01/2018 12:00 AM Indication: Comparison: None Technique: Sonographic evaluation of the kidneys. Color doppler was utilized to supplement evaluation. FINDINGS: KIDNE YS: Right: Measures 11.4 cm in length. Moderate to severe hydronephrosi s. Renal cortex measures 1.5 cm. Left: Measures 11.5 cm in length . Moderate to severe hydronephrosis. Renal cortex measures 1.1 cm. 0.6 cm ec hogenic focus suggesting renal calculus. URINARY BLADDER: Thickening of the bladder wall. Bilateral physiologic ureteral jets. OTHER: Prostate me asures 3.6 x 4.6 x 4.5 cm. IMPRESSION: Moderate to severe bilate ral hydronephrosis. CT could be obtained for further evaluation if indicated. Thickening of the urinary bladder wall, nonspecific. Correlation recommende d. Nonobstructing left renal calculus. Signed by: Dr. Joseph Castrejon MD on 04/01/2018 12:35 PM Dictated By: JOSEPH Suazo [facility] Signed By: JOSEPH VALENCIA MD on 04/01/18 1235 Transcribed By: NELY on 04/01/18 1235 COPY TO: CORTNEY PRECIADO MD Creatine Kinase MB 2018-04-01 10:36:00* Test Item Value Reference Range Interpretation Comments Creatine Kinase MB (test code = 67365-2) 1.20 0-5.0 [facility] P3104-06-46 10:36:00* Test Item Value Reference Range Interpretation Comments Troponin I (test code = OZA0385) 0.007 0-0.300 [facility] BR2596-22-83 10:36:00* Test Item Value Reference Range Interpretation Comments Creatine Kinase MB (test code = 83241-4) 1.20 0-5.0 [facility] G8070-41-65 10:36:00* Test Item Value Reference Range Interpretation Comments Troponin I (test code = DJT8725) 0.007 0-0.300 [facility] Hnaqwq3622-13-04 10:27:00* Test Item Value Reference Range Interpretation Comments Creatine Kinase (test code = 2157-6) 98 30-200 [facility] Aumxep3013-24-68 10:27:00* Test Item Value Reference Range Interpretation Comments Creatine Kinase (test code = 2157-6) 98 30-200 [facility] W/SZDFR4647-26-49 19:13:00 [facility] [address] [address] Patient Name: MINI BLANCO MR #: [id number] : 1945 Age/Sex: 72/M Req #: [id number] Adm Physician: Ordered by: DEEPALI VERA MD Report #: [id number] Location: [place] Room/Bed: Procedure: [id number] NM/ RENAL SCAN W/LASIX Exam Date: 02/24/18 Exam Time: 08 45 REPORT STATUS: Signed Renal S can with Lasix Washout Clinical information: 72 M with unspecified hydronep hrosis; Htn. No history of renal disease. Technique: Following intraveno us administration of 11 mCi of Tc-99m MAG3, dynamic images of the kidneys in t he posterior projection were obtained through 40 minutes. Lasix 40 mg was adm inistered intravenously at 10 minutes post injection of the tracer. Repor t: Left kidney: Perfusion of the left kidney is prompt. The kidney small b ut has a reniform shape. Extraction of tracer from the blood pool is moderate ly decreased. Clearance of tracer from the renal parenchyma is delayed and on ly a very small amount of tracer is actually cleared (excreted) from the renal parenchyma. The pelvicalyceal system is not dilated. Some but minimal pooli ng of tracer is seen within the pelvicalyceal system. No net drainage of trac er from the pelvicalyceal system is seen prior to administration of Lasix. No washout of tracer from the pelvicalyceal system is seen following administr ation of Lasix. The renogram reaches a plateau and has no downward slope at a l post Lasix. No significant stasis of tracer is seen within the left ureter. Right kidney: Perfusion to the right kidney is prompt. The right kidney is small but has a reniform shape. Extraction of tracer by the renal parenchyma is moderately. Clearance of tracer from the pelvicaliceal system starts p romptly but is not complete by the end of the study. No dilation of the pelvi calyceal system is present. Some but very minimal increased pooling of tracer is seen in the pelvicalyceal system. No net drainage of tracer is seen from the pelvicalyceal system prior to administration of Lasix. Very limited washo ut of tracer from the pelvicalyceal system is seen following administration of Lasix but the renogram quickly reaches a plateau. The T-1/2 for Lasix washout is undefined given the very short time of washout and the limited amount of tracer that is cleared from the parenchyma. No significant stasis of tracer is seen within the right ureter. Differential renal function: The left kidn ey contributes 46% of total renal function and the right kidney contributes 54 % (normal 43-57%). Impression: 1. Scan evidence of moderately severe medical renal disease and/or tubular dysfunction in the left kidney. The excr etory function is very poor. No hydronephrosis is present. Physiologically s ignificant obstruction of the renal collecting system is not suspected but can not be adequately assessed using the Lasix washout method due to the significa ntly impaired excretory function of the kidney. 2. The function of the ri ght kidney is slightly better than the left and reflects medical renal disease evidenced by poor clearance (excretion) of tracer from the pelvicalyceal syst em. No tubular dysfunction is apparent as is seen in the left kidney. No hyd ronephrosis is present. Physiologically significant obstruction of the renal collecting system is not suspected but cannot be adequately assessed using the Lasix washout method due to the significantly impaired excretory function of the kidney. 3. The width of the differential renal function is preserved al though visually the right kidney has better overall function evidenced by more clearance (excretion) of tracer from the renal parenchyma. Signed by: Dr. Bryant Leahy M.D. on 02/24/2018 8:19 PM Dictated By: BRYANT LEAHY MD El ectronically Signed By: BRYANT LEAHY MD on 02/24/182018 Transcribed By: NELY on 02/24/182018 COPY TO: DEEPALI VERA MD CHEM YCANS0220-31-08 09:31:0052[facility] NEVUJ4311-07-14 09:31:0030[facility]annCHE[facility] CASVM5170-94-25 09:31:008.3[facility]annCHE[facility] IFXEH0656-23-10 09:31:0012.1 [facility] NFGLY7247-55-84 09:31:0013[facility]annCHEM PANEL 2018-02-06 09:31:91380Ogaxaiki HermannCHEM ASXGW0832-68-36 09:31:003.1[facility]ann[facility]M HDAXX9018-12-75 09:31:18354Qcxeqdbl HermannCHEM IJHDM2540-84-19 09:31:001.34[facility]annCHEM PBCPG2562-38-89 09:31:04844Wgdpbmod HermannCHEM HOOSQ6617-36-70 09:31:002.2[facility]annCARDIAC SGIWNNE3027-59-99 15:41:00< 0.02[facility]annCHEM ONSTD8015-57-84 15:41:0047[facility]annCHEM PANEL 2018-02-05 15:41:003.2[facility]annCHEM UVEEB2568-82-80 15:41:53819Uxcuxjlr HermannCHEM VTTTV2847-97-62 15:41:91649Waqwlthu HermannCHEM SQVJU1467-97-95 15:41:001.46[facility]annCHEM WGCCL5834-95-76 15:41:0092[facility]annCHEM DZBHG8070-68-16 15:41:0014[facility]annCHEM CHTEB3870-95-80 15:41:0032 [facility] EXDKL6111-96-58 15:41:008.6[facility]annCHEM PANEL 2018-02-05 15:41:0013.2[facility]annCARDIAC UQSOQJI5483-82-36 09:41:00<0.02 [facility] AND LJHNE8701-12-70 04:10:00* Test Item Value Reference Range Interpretation Comments UA Spec Grav (test code = UA Spec Grav) 1.012 1 [facility] TFKAX0169-24-35 04:10:00Clear (02/04/18 11:10 PM) [facility] RHQNU3975-63-08 04:10:00* Test Item Value Reference Range Interpretation Comments UA pH (test code = UA pH) 6.0 1 5.0-8.0 [facility] XBRTL3544-12-24 04:10:001[facility] EYVXX9079-78-78 04:10:002[facility] MKYWR4433-46-14 04:10:00 Negative (02/04/18 11:10 PM)[facility] REQXS5674-26-73 04:10:00 Negative *NA*(02/04/18 11:10 PM)[facility] IORNH6301-00-45 04:10:00Negative (02/04/18 11:10 PM)[facility] CGRJP1473-90-14 04:10:00Negative (02/04/18 11:10 PM)[facility]annCARDIAC AXOLHDL6222-71-88 02:01:00<0.02[facility]annCARDIAC UEEDBDA6756-45-33 02:01:06584Berphsnz HermannCHEM UOHDU9867-97-25 02:01:08905Zpuvddhr HermannCHEM OMOTM9411-54-12 02:01:0053[facility]annCHEM KKJSE5823-57-54 02:01:003.5[facility] ANSGZ0556-76-26 02:01:0021[facility]annCHE[facility] TOMQD4283-58-78 02:01:0016 [facility] LSFVS0556-69-11 02:01:00* Test Item Value Reference Range Interpretation Comments B/C Ratio (test code = B/C Ratio) 12 1 6-25 [facility] LBAGY7745-82-73 02:01:007.2[facility]annCHEM PANEL 2018-02-05 02:01:003.7[facility]annCHE[facility] FDMJB4382-71-57 02:01:00* Test Item Value Reference Range Interpretation Comments A/G Ratio (test code = A/G Ratio) 0.9 1 0.7-1.6 [facility] GPERV9371-03-10 02:01:93767Gowctuac HermannCHEM PANEL 2018-02-05 02:01:0030[facility]annCHEM VZYGN9994-37-29 02:01:002.7[facility]annCHE[facility] ZXMJN3013-83-56 02:01:009.7[facility]annCHE[facility] RKQCR0095-97-28 02:01:009.1[facility]ann[facility] USSVI8379-38-11 02:01:0016[facility]annCHEM DHXQG4146-13-98 02:01:001.33[facility]annCHEM JHWZL8451-44-05 02:01:49829 [facility] NYLJA7354-58-25 02:01:60669Xwprayxq HermannCHEM PANEL 2018-02-05 02:01:0072[facility]annCHEM LSKHA1649-20-39 02:01:000.6[facility] IpjetfsYGZOUAPFAC6763-15-05 02:01:0070.4[facility] FwiqrubZAWCDQFOIN7429-14-43 02:01:000.1[facility] TllssetYIWUPKAVSJ6015-18-91 02:01:006.3[facility] SBVGMPFECK9509-87-08 02:01:000.1[facility] VsncpspZWIYEIQNCZ2595-39-33 02:01:002.0 [facility] HbovbmxPCJQDWWHNC3065-20-54 02:01:000.5[facility]annHEMATOLOGY 2018-02-05 02:01:001.1[facility] GykktatJHJHLGZUUH5849-96-74 02:01:0022.0[facility] FrqqijaGOARDCAVWS4427-44-57 02:01:005.8[facility] WrjajkyBVBTMMJQET6357-35-30 02:01:000.7[facility] YvoxcstNRCESDEPEK7295-11-70 02:01:004.42[facility] MVBTUMXZWZ3566-37-97 02:01:009.0[facility] ZmxfurkIVHPQLGDWR7043-72-81 02:01:00 14.3[facility] VqlspdbJVMPCZFQLF3162-99-50 02:01:66706Dufwogwk HermannHEMATOLOGY 2018-02-05 02:01:008.7[facility] UejvqwiVLNMKYJMVR8665-29-01 02:01:00* Test Item Value Reference Range Interpretation Comments MCH (test code = MCH) 31.3 pg 27.0-31.0 [facility] EsmhlueITWEDOCPAE5867-15-20 02:01:0034.9[facility]annHEMATOLOGY 2018-02-05 02:01:0039.8[facility] OytisswDTCOGLLUXY3851-14-25 02:01:0089.8[facility] WgwhdnbCBOGKZJSIR1621-12-89 02:01:0013.9[facility]annUS TESTICULAR DOPPLER AVS5202-98-48 18:03:00 [place] [address] Patient Name: MINI BLANCO MR #: [id number] : 1945 Age/Sex: 71/M Req #: [id number] Adm Physician: Ordered by: DEEPALI VERA MD Report #: [id number] Location: [place] Room/Bed: Procedure: [id number] US/US TESTICULAR DOPPLER LTD Exam Date: 10/27/17 Exam Time: 1637 REPORT STAT US: Signed EXAM: Scrotal Ultrasound with Duplex INDICATION: Follow-up epi didymal cysts. COMPARISON: Scrotal ultrasound dated 07/07/2017 TECHNIQ UE: Transverse and longitudinal images were obtained of the scrotum with slava juani imaging, color Doppler and spectral waveform analysis. FINDINGS: Ri ght testis: Size: 3.5 x 1.4 x 2.4 cm, normal in size. Echogenicity : Normal Mass/Cysts: 0.5 x 0 6 x 0.6 cm cyst in the mid/inferior portion , unchanged. Left testis: Size: 2.8 x 1.7 x 2.3 cm, normal in size . Echogenicity: Microcalcification is again seen, measuring 0.1 cm. Mass/Cysts: None Epididymis: Appearance: Normal in size without i ncreased vascularity. Mass/Cysts: Multiple right epididymal head cysts/sp ermatoceles, the largest measuring 0.6 cm, previously 0.9 cm. Multiple l eft epididymal cysts/spermatoceles, the largest measuring 0.6 cm, previously 0 .9 cm. Extratesticular: Masses: None Hydrocele: Trace bilateral hydroce le. Varicocele: None Doppler: Normal arterial flow to both testes and s ymmetrical flow on color Doppler evaluation is seen. No evidence of testicular torsion. IMPRESSION: 1. No evidence of testicular torsion. 2. Multip le bilateral epididymal head cyst/spermatoceles, stable or slightly decreased in size from prior exam. 3. Stable right testicular cyst. 4. Unchanged left testicular microcalcification. 5. Trace bilateral hydrocele. Signed by: Ingrid Parr MD on 10/27/2017 6:18 PM Dictated By: FAREED PARR MD 17 Transcribed By: ALLAN BHAKTA on 10/27/171817 COPY TO: DEEPALI VERA MD TESTICULAR 2017-10-27 18:03:00 [place] [address] Patient Name: MINI BLANCO MR #: [id number] : 1945 Age/Sex: 71/M Req #: [id number] Adm Physician: Ordered by: DEEAPLI VERA MD Report #: [id number] Location: Room/Bed: Procedure: [id number] US/US TESTICULAR Exam Date: 10/27/17 Exam Time: 1637 REPORT STATUS: Signed EXAM: Scrotal Ultrasound with Duplex INDICATION: Follow-up epididymal cyst s. COMPARISON: Scrotal ultrasound dated 07/07/2017 TECHNIQUE: Transver se and longitudinal images were obtained of the scrotum with grayscale imaging , color Doppler and spectral waveform analysis. FINDINGS: Right testis: Size: 3.5 x 1.4 x 2.4 cm, normal in size. Echogenicity: Normal Mass/Cysts: 0.5 x 0 6 x 0.6 cm cyst in the mid/inferior portion, unchanged. Left testis: Size: 2.8 x 1.7 x 2.3 cm, normal in size. Ech ogenicity: Microcalcification is again seen, measuring 0.1 cm. Mass/Cysts : None Epididymis: Appearance: Normal in size without increased vas cularity. Mass/Cysts: Multiple right epididymal head cysts/spermatoceles, the largest measuring 0.6 cm, previously 0.9 cm. Multiple left epididym al cysts/spermatoceles, the largest measuring 0.6 cm, previously 0.9 cm. Extratesticular: Masses: None Hydrocele: Trace bilateral hydrocele. Varico vickey: None Doppler: Normal arterial flow to both testes and symmetrical f low on color Doppler evaluation is seen. No evidence of testicular torsion. IMPRESSION: 1. No evidence of testicular torsion. 2. Multiple bilateral epididymal head cyst/spermatoceles, stable or slightly decreased in size from prior exam. 3. Stable right testicular cyst. 4. Unchanged left testicular m icrocalcification. 5. Trace bilateral hydrocele. Signed by: Dr. Fareed kirkland MD on 10/27/2017 6:18 PM Dictated By: FAREED PARR MD Electronical ly Signed By: FAREED PARR MD on 10/27/171817 Transcribed By: NELY on 10/12 COPY TO: DEEPALI VERA MD CHEM IENPH0860-85-75 20:30:11956Ytctlswb MlwgckzXLWFLLOGAFCY7551-11-23 20:30:0012.3[facility] BYKYLITHWZOW9444-55-69 20:30:009[facility] VywrhqzZTIYVZUMGOUB2248-58-40 20:30:00 1.0[facility] QxhgswdKMRVOXMBCDFS4679-31-74 20:30:004.0[facility] XLSQXHZFGQUF7513-42-78 20:30:0078[facility] CjzaduhKPCNCUZQLIBC7138-17-81 20:30:00 0.98[facility] KgrkrowKFXAPWNYYJTU1381-51-04 20:30:009[facility]annELECTROLYTES 2015-09-16 20:30:37033Kgxheicz PryavdjKCUWSWJGXBXV1009-82-76 20:30:22011Ybanqjss GdcirwsBRVTTHBRVMHE7338-56-35 20:30:003.8[facility] EvnyxarBJQIVHLULKLM0973-38-68 20:30:007.8[facility] DtfddqhFEXADMVIPDFQ7686-28-88 20:30:0023[facility] LTNJBPXDHFOJ2812-19-12 20:30:000.5[facility] JwbyhqtVJCVOBPPKWXN0744-94-02 20:30:0076[facility] HvopgroDMSLAFXGIAGG8240-34-27 20:30:009.2[facility] FBNKSVGWMSVR6258-33-67 20:30:0029[facility] GrcaekzTIRPKFXSXBJP8365-00-91 20:30:00 104[facility] TxmybxlVJRZCAIRGEOY9788-75-07 20:30:003.3[facility] YTMWFCRIKZFY1878-55-73 20:30:0018[facility] WjtozoyWZQTQNULFL4358-17-14 20:30:00 6.3[facility] ZttmblrOBGZXPABDA7407-19-77 20:30:000.1[facility]annHEMATOLOGY 2015-09-16 20:30:000.1[facility] DsjzxwjJVMFRQISJI8497-35-25 20:30:000.4[facility] KvsdvbdYOZJMFIIQN5287-35-06 20:30:002.0[facility] NaqvnabHAEAGHNZKT3551-69-92 20:30:004.2[facility] FrrhlfcGLVGFWZZUY5878-49-07 20:30:001.1[facility] YMMNHCVMYC6662-47-72 20:30:001.2[facility] DwsfoywJMBDIBGPMY0569-38-99 20:30:00 29.8[facility] HbzrrspORYMTBLYAG8501-37-93 20:30:0061.6[facility]annHEMATOLOGY 2015-09-16 20:30:008.6[facility] NnlooxvBLTGGEFAOQ1759-44-11 20:30:52475Wppoxnoz KhvqoygJJRVHBXMDU1989-85-85 20:30:0014.3[facility] PaqcuibSXLVUWWCER2848-06-25 20:30:0033.6[facility] UcrdslePZMVRLOFXN4842-36-46 20:30:00* Test Item Value Reference Range Interpretation Comments MCH (test code = MCH) 30.7 pg 27.0-31.0 [facility] TuxvknwXKMMTMJZWF0135-55-24 20:30:006.8[facility]annHEMATOLOGY 2015-09-16 20:30:004.75[facility] SxfmmwfZKJWEFMBBI9106-37-78 20:30:0014.6[facility] DaxczunSXEVVTXGQD8183-25-74 20:30:0043.5[facility] HfkflitECXSJYQXWI0798-56-40 20:30:0091.5[facility] AND UJQVH5041-77-12 20:30:002[facility] URINE AND HRAPF8231-88-41 20:30:002[facility] AND EDQNR1069-00-53 20:30:00Trace *ABN*(09/16/15 3:30 PM)[facility] WEEAE7880-15-17 20:30:00Negative (09/16/15 3:30 PM)[facility] YQNMS0953-14-75 20:30:00Negative (09/16/15 3:30 PM)[facility] SBKDP9301-01-54 20:30:00Negative *NA*(09/16/15 3:30 PM)[facility] JGHKB1445-62-25 20:30:007.0[facility] YTHJT8930-21-46 20:30:001.009[facility] GRUVF0364-11-93 20:30:00Clear (09/16/15 3:30 PM)[facility] URINE AND LUXPG8961-78-02 20:30:00Positive *ABN*(09/16/15 3:30 PM)[facility] [place] US TESTICULAR [place] [address] Patient Name: MINI BLANCO MR #: [id number] : 1945 Age/Sex: 71/M Req #: [id number] Adm Physician: Ordered by: DEEPALI VERA MD Report #: [id number] Location: Room/Bed: Procedure: [id number] US/US TESTICULAR Exam Date: 07/07/17 Exam Time: 1601 REPORT STATUS: Signed PROCEDURE: TESTICULAR ULTRASOUND and TESTICULAR DOPPLER ULTRASOUND COMPARI SON: None. INDICATIONS: Left Testicular Pain TECHNIQUE: Amor-scale and c olor doppler images of the testicles and scrotal contents were obtained. Dupl ex imaging with spectral waveform analysis was performed of the testicular ar teries and veins. FINDINGS: RIGHT SCROTUM: Testicle: 3.4 [...] cm. Several scattered punctate echogenic foci, likely calcificatio ns without associated mass measured up to 0.1 cm. Epididymal head: 0.9 x 0. 5 x 0.9 cm. Simple 4 x 0.4 x 0.4 cm and 0.2 x 0.2 x 0.2 cm left epididymal he ad cyst. Hydrocele: None Varicocele: None CONCLUSION: 1. Se veral left testicular microlithiasis, which is nonspecific. 2. Otherwise norm al testicular ultrasound. Dictated by: Linus Knox M.D. on 07/07/2017 at 17: 30 Electronically approved by: Linus Knox M.D. on 07/07/2017 at 17:30 Electronically approved by: Linus Knox M.D. on 07/07/2017 at 17:32 Dictated By: LINUS KNOX MD 173 Transcribed By: TRINA on 07/07/17 173 COPY TO: DEEPALI VERA MD TESTICULAR DOPPLER [place] [address] Patient Name: MINI BLANCO MR #: [id number] : 1945 Age/Sex: 71/M Req #: [id number] Adm Physician: Ordered by: DEEPALI VERA MD Report #: [id number] Location: [place] Room/Bed: Procedure: [id number] US/US TESTICULAR DOPPLER LTD Exam Date: 07/07/17 Exam Time: 1601 REPORT STAT US: Signed PROCEDURE: TESTICULAR DOPPLER ULTRASOUND COMPARISON: None. INDICATIONS: Left Testicular Pain TECHNIQUE: Amor-scale and color doppler i mages of the testicles and scrotal contents were obtained. Duplex imaging wit h spectral waveform analysis was performed of the testicular arteries and vei ns. FINDINGS: Please see testicular ultrasound for combined dictati on. CONCLUSION: Please see testicular ultrasound for combined dict ation. Dictated by: Linus Knox M.D. on 07/07/2017 at 17:31 Electro nically approved by: Liuns Knox M.D. on 07/07/2017 at 17:31 Dictate d By: LINUS KNOX MD 1731 Transcr ibed By: TRINA on 07/07/17 1731 COPY TO: DEEPALI VERA MD
--- NOTE | 2019-12-15 14:40 | NUR ---
RECEIVED TO RM AAOX3 NO DISTRESS NOTED, UPDATED ON POC VOICED UNDERSTANDING, BAUTISTA TO BSD WITH LIGHT RED URINE NOTED, CBI BAGS INFUSING TO GRAVITY, ORIENTED TO RM, CALL LIGHT IN REACH WILL CONTINUE TO MONITOR
[2019-12-15 14:47] LABS: BASOPHILS % 0.4 % (0.0-1.0); EOSINOPHILS % 0.3 % (0.0-6.0); HEMATOCRIT 44.6 % (38.2-49.6); HEMOGLOBIN 14.6 g/dL (14.0-18.0); LYMPHOCYTES # (AUTO) 1.2 (1.0-3.2); LYMPHOCYTES % 14.6 % (18.0-39.1); MEAN CORPUSCULAR HEMOGLOBIN 30.9 pg (28-32); MEAN CORPUSCULAR HGB CONC 32.7 g/dL (31-35); MEAN CORPUSCULAR VOLUME 94.3 fL (81-99); MONOCYTES # (AUTO) 0.1 (0.2-0.8); MONOCYTES % 1.4 % (4.4-11.3); NEUTROPHILS # (AUTO) 6.6 (2.1-6.9); NEUTROPHILS % 82.9 % (38.7-80.0); PLATELET COUNT 243 x10e3/uL (140-360); RED BLOOD COUNT 4.73 x10e6/uL (4.3-5.7); RED CELL DISTRIBUTION WIDTH 14.6 % (11.7-14.4)
[2019-12-15 14:48] VITALS: BP 158/82
[2019-12-15 15:04] LABS: ANION GAP 13.3 mmol/L (8-16); CALCIUM 8.4 mg/dL (8.4-10.2); CREATININE, SERUM 1.2 mg/dL (0.72-1.25); POTASSIUM 4.3 mmol/L (3.5-5.1)
[2019-12-15 15:40] VITALS: BP 158/82
[2019-12-15 16:00] VITALS: BP 155/76
[2019-12-15] MEDS: D5.45%NS/KCL 20MEQ 1,000 ML IV SCH (16:35)
[2019-12-15] MEDS: DOCUSATE SODIUM 100 MG CAP PO SCH (16:36)
[2019-12-15] MEDS ORDERED: FENTANYL CITRATE/PF 100MCG/2 ML INJ ONE (17:48)
--- NOTE | 2019-12-15 19:00 | NUR ---
RECEIVED PATIENT IN BEDSIDE SHIFT REPORT. PATIENT RESTING IN BED AT THIS TIME. NO PAIN REPORTED. NO S&S OF DISTRESS NOTED. CBI RUNNING, CLEAR ALDANA URINE IN BAUTISTA BAG. NO CLOTS NOTED. IV TO R HAND RUNNING [id number] @ 125ML/HR. BED LOCKED IN LOWEST POSITION, SIDE RAILS UPX2, CALL LIGHT IN REACH.
[2019-12-15 19:54] VITALS: BP 144/73
[2019-12-15 20:00] VITALS: BP 144/73
[2019-12-15] MEDS ORDERED: ACETAMINOPHEN 325 MG TAB PO PRN (20:30)
[2019-12-15] MEDS ORDERED: HYDRALAZINE HCL 20 MG/ML VIAL IV PRN (20:30)
[2019-12-15] MEDS ORDERED: PROPOFOL IV EMULSION 10 MG/ML 20 ML VIAL ONE (21:29)
[2019-12-15] MEDS ORDERED: SEVOFLURANE INHAL SOLN 250 ML PEN BTL ONE (21:29)
[2019-12-15] MEDS ORDERED: ONDANSETRON HCL INJ 2MG/ML 2ML 2 MG/ML VIAL ONE (21:29)
[2019-12-15] MEDS ORDERED: DEXAMETHASONE SOD PHOS INJ 4 MG/ML VIAL ONE (21:29)
[2019-12-15] MEDS ORDERED: LIDOCAINE HCL 2% LOCAL INJ 5 ML SDV VIAL INJ ONE (21:29)
[2019-12-15] MEDS ORDERED: GLYCOPYRROLATE INJ 0.2 MG/ML VIAL ONE (21:29)
[2019-12-15 23:55] VITALS: BP 127/48
[2019-12-16] VITALS (7 sets, daily range): BP systolic 124–139; BP diastolic 63–72
[2019-12-16] MEDS: D5.45%NS/KCL 20MEQ 1,000 ML IV SCH ×3 (00:18→13:48)
[2019-12-16 05:16] LABS: BASOPHILS % 0.3 % (0.0-1.0); EOSINOPHILS # (AUTO) 0.1 (0.0-0.4); EOSINOPHILS % 1.3 % (0.0-6.0); HEMATOCRIT 41.4 % (38.2-49.6); HEMOGLOBIN 13.6 g/dL (14.0-18.0); LYMPHOCYTES # (AUTO) 0.7 (1.0-3.2); LYMPHOCYTES % 6.3 % (18.0-39.1); MEAN CORPUSCULAR HEMOGLOBIN 30.6 pg (28-32); MEAN CORPUSCULAR HGB CONC 32.9 g/dL (31-35); MEAN CORPUSCULAR VOLUME 93.2 fL (81-99); MONOCYTES # (AUTO) 0.7 (0.2-0.8); MONOCYTES % 6.5 % (4.4-11.3); NEUTROPHILS # (AUTO) 9.5 (2.1-6.9); NEUTROPHILS % 85.2 % (38.7-80.0); PLATELET COUNT 230 x10e3/uL (140-360); RED BLOOD COUNT 4.44 x10e6/uL (4.3-5.7); RED CELL DISTRIBUTION WIDTH 14.5 % (11.7-14.4)
[2019-12-16 05:33] LABS: ANION GAP 11.8 mmol/L (8-16); BLOOD UREA NITROGEN 13 mg/dL (7-26); BUN/CREATININE RATIO 14 (6-25); CALCIUM 7.9 mg/dL (8.4-10.2); CARBON DIOXIDE 23 mmol/L (22-29); CHLORIDE 107 mmol/L (98-107); CREATININE, SERUM 0.95 mg/dL (0.72-1.25); EST GLOMERULAR FILTRATION RATE > 60 ML/MIN (60-); GLUCOSE 124 mg/dL (74-118); POTASSIUM 3.8 mmol/L (3.5-5.1); SODIUM 138 mmol/L (136-145)
[2019-12-16] MEDS: DOCUSATE SODIUM 100 MG CAP PO SCH ×2 (08:42→16:40)
[2019-12-16] MEDS: LOSARTAN POTASSIUM 25 MG TAB PO SCH (08:42)
[2019-12-16] MEDS: TAMSULOSIN HCL 0.4 MG CAP PO SCH (08:42)
[2019-12-16] MEDS: CEFTRIAXONE SOD 1 GM/NS 50 ML 50 ML IV SCH (08:52)
[2019-12-16] MEDS ORDERED: LOSARTAN POTASSIUM 100 MG TAB PO SCH (09:00)
[2019-12-16] MEDS ORDERED: BISACODYL 5 MG TAB EC PO ONE (16:30)
--- NOTE | 2019-12-16 18:00 | History and Physical ---
PRIMARY CARE PHYSICIAN: Dr. Cali Hand. CHIEF COMPLAINT: Status post TURP. HISTORY OF PRESENT ILLNESS: This is a 74-year-old male with past medical history of hypertension, GERD, CKD, BPH, admitted post TURP per Dr. Rome. He was seen in PACU with staff at bedside. He reports mild tenderness in the pelvic area, Blair catheter in place with hematuria and bladder irrigation and process. He denies any chest pain, shortness of breath, nausea, vomiting, fever, or chills. PAST MEDICAL HISTORY: 1. Hypertension. 2. Gastroesophageal reflux disease. 3. Chronic kidney disease. 4. Benign prostatic hyperplasia. PAST SURGICAL HISTORY: 1. Reports cataract surgery. 2. EGD and colonoscopy. 3. TURP. FAMILY MEDICAL HISTORY: Reports both mother and brother had diabetes. SOCIAL HISTORY: He denies any tobacco or illicit drug use. He however drinks occasionally. He is and lives with his spouse. ALLERGIES: NO KNOWN DRUG ALLERGIES. REVIEW OF SYSTEMS: Ten system reviewed and negative except as reported in HPI. PHYSICAL EXAMINIATION: VITAL SIGNS: Temperature 97.4, pulse is 70, respirations 19, blood pressure 153/82, pulse ox is 96% on 3 L of nasal cannula. GENERAL: No acute distress. HEENT: Normocephalic. NECK: Supple. LUNGS: Clear to auscultation. CARDIOVASCULAR: Regular rate and rhythm. GI: Mild pain in the lower quadrant. NEUROLOGIC: Alert, awake, and oriented x3 MUSCULOSKELETAL: Moves all extremities. SKIN: Dry. PSYCH: Calm. LABORATORY DATA: WBC 7.90, hemoglobin 14.6, hematocrit 44.6, platelets 243,000. Sodium 142, potassium 4.3, CO2 25, BUN is 16, creatinine 1.2, estimated GFR is 69, glucose 129, magnesium 1.8. IMPRESSION: 1. Hypertension. We will resume home losartan. We will also add hydralazine as needed. 2. GERD. Continue PPI. 3. CKD. Creatinine is 1.2. We will continue to monitor closely. 4. Status post TURP. Bladder irrigation per Urology. Continue empiric Rocephin. 5. DVT prophylaxis. SCDs due to hematuria. PLAN: Continue current treatments, further recommendations per Urology. Dictated by KENNETH Martinez Yiching MD RAUL Turner/JOSE FRANCISCO /[id number]
--- NOTE | 2019-12-16 18:05 | Progress Note ---
DATE: 12/16/2019 CONSULTANTS: Dr. Rome, Urology. CHIEF COMPLAINT: Hematuria post TURP. SUBJECTIVE: The patient is still having hematuria post TURP yesterday. Irrigation is being done, urine is pink tinged. He reports pelvic suprapubic pain. He denies any fever, chills, nausea, or vomiting. PHYSICAL EXAMINATION: VITAL SIGNS: Temperature 98.8, pulse is 79, respirations 18, blood pressure 139/68, pulse ox is 98% on room air. GENERAL: No acute distress. HEENT: Normocephalic and atraumatic. NECK: Supple. CARDIOVASCULAR: Regular rate and rhythm. LUNGS: Decreased breath sounds. ABDOMEN: Soft and mild tenderness in the suprapubic area. : Blair in place. Irrigation underway. Blood tinged urine. NEUROLOGIC: Alert, awake, and oriented x3. MUSCULOSKELETAL: Moves all extremities. No edema. PSYCH: Calm. LABORATORY DATA: WBC 11.19, hemoglobin 13.6, hematocrit 41.4, platelets 230,000. Sodium 138, potassium 3.8, BUN is 13, creatinine 0.95, estimated GFR greater than 60. IMPRESSION: 1. Hypertension. Stable on home dose of losartan. 2. Benign prostatic hyperplasia, status post TURP. Blair in place. Irrigation underway. Prophylactic Rocephin and Pyridium for bladder spasm. Further recommendations per Urology. 3. Acute kidney injury. Improved with IV fluid hydration. 4. Mild leukocytosis. Likely reactive. WBCs 11.9. Continue empiric Rocephin. 5. Deep vein thrombosis prophylaxis. SCDs, no AD due to hematuria. Dictated by KENNETH Martinez Maria Isabel Luke MD MY/MODL /[id number]
--- NOTE | 2019-12-16 19:00 | NUR ---
RECEIVED PATIENT IN BEDSIDE SHIFT REPORT. PATIENT RESTING IN BED AT THIS TIME. VERY MILD PAIN REPORTED TO LOWER ABDOMEN. NO S&S OF DISTRESS NOTED. CBI RUNNING, PINK URINE NOTED TO BAUTISTA BAG. BED LOCKED IN LOWEST POSITION, SIDE RAILS UPX2, CALL LIGHT IN REACH.
[2019-12-17] VITALS (8 sets, daily range): BP systolic 138–157; BP diastolic 64–78
[2019-12-17] MEDS: D5.45%NS/KCL 20MEQ 1,000 ML IV SCH ×4 (00:53→20:45)
[2019-12-17 05:53] LABS: BASOPHILS % 0.4 % (0.0-1.0); EOSINOPHILS # (AUTO) 0.4 (0.0-0.4); EOSINOPHILS % 5.1 % (0.0-6.0); HEMATOCRIT 39.9 % (38.2-49.6); HEMOGLOBIN 12.8 g/dL (14.0-18.0); LYMPHOCYTES # (AUTO) 1.2 (1.0-3.2); LYMPHOCYTES % 15.9 % (18.0-39.1); MEAN CORPUSCULAR HEMOGLOBIN 30.3 pg (28-32); MEAN CORPUSCULAR HGB CONC 32.1 g/dL (31-35); MEAN CORPUSCULAR VOLUME 94.5 fL (81-99); MONOCYTES # (AUTO) 0.7 (0.2-0.8); MONOCYTES % 8.6 % (4.4-11.3); NEUTROPHILS # (AUTO) 5.3 (2.1-6.9); NEUTROPHILS % 69.6 % (38.7-80.0); PLATELET COUNT 216 x10e3/uL (140-360); RED BLOOD COUNT 4.22 x10e6/uL (4.3-5.7); RED CELL DISTRIBUTION WIDTH 14.9 % (11.7-14.4)
[2019-12-17 06:16] LABS: ANION GAP 10.3 mmol/L (8-16); BLOOD UREA NITROGEN 8 mg/dL (7-26); BUN/CREATININE RATIO 7 (6-25); CALCIUM 8.3 mg/dL (8.4-10.2); CARBON DIOXIDE 27 mmol/L (22-29); CHLORIDE 109 mmol/L (98-107); EST GLOMERULAR FILTRATION RATE > 60 ML/MIN (60-); GLUCOSE 108 mg/dL (74-118); POTASSIUM 4.3 mmol/L (3.5-5.1); SODIUM 142 mmol/L (136-145)
--- NOTE | 2019-12-17 07:05 | NUR ---
RCD PT AT BED PT IS ALERT AND ORIENTED RESTING ON BED IV PATENT BED LOW AND LOCKED CALL LIGHT IN REACH
[2019-12-17] MEDS: LOSARTAN POTASSIUM 25 MG TAB PO SCH (09:00)
[2019-12-17] MEDS: TAMSULOSIN HCL 0.4 MG CAP PO SCH (09:00)
[2019-12-17] MEDS: DOCUSATE SODIUM 100 MG CAP PO SCH ×2 (09:00→17:00)
[2019-12-17] MEDS: CEFTRIAXONE SOD 1 GM/NS 50 ML 50 ML IV SCH (09:30)
[2019-12-17] MEDS ORDERED: ONDANSETRON HCL 4 MG ORAL DISINTEGRATING TAB PO PRN (11:45)
--- NOTE | 2019-12-17 18:39 | NUR ---
PT RESTING ON BED BED SIDE REPORT GIVEN TO ONCOMING NURSE
--- NOTE | 2019-12-17 22:49 | Progress Note ---
DATE: 12/17/2019 CONSULTANTS: Dr. Rome, Urology. SUBJECTIVE: The patient is in bed with no acute distress, Blair is draining clear yellow urine, status post repair. He denies any abdominal pain, chest pain, nausea, or vomiting. PHYSICAL EXAMINATION: VITAL SIGNS: Temperature 98.2, pulse is 76, respirations 20, blood pressure 152/78, pulse ox 97% on room air. GENERAL: No acute distress. HEENT: Normocephalic and atraumatic. NECK: Supple. CARDIOVASCULAR: Regular rate and rhythm. LUNGS: With decreased breath sounds. ABDOMEN: Soft and mildly tender. : Blair in place, clear yellow urine. NEUROLOGIC: Alert, awake, and oriented x3. MUSCULOSKELETAL: Moves all extremities. No edema. PSYCH: Calm. LABORATORY DATA: WBC 7.67, hemoglobin 12.8, hematocrit 39.9, platelets 216. Sodium 142, potassium 4.3, CO2 of 27, BUN 8, creatinine 1.10. Estimated GFR is greater than 60. COVID PCR negative. IMPRESSION: 1. Hypertension, stable on losartan. 2. Benign prostatic hyperplasia status post transurethral resection of the prostate. Blair in place draining clear yellow urine. Continue on Rocephin and Pyridium for bladder spasms. 3. Acute kidney injury. Improved with IV fluid hydration. 4. Mild leukocytosis. Resolved. 5. Deep venous thrombosis prophylaxis. SCDs due to recent neurological workup. PLAN: Continue current treatment, may be discharged home once cleared by Urology. Dictated by KENNETH Martinez Maria Isabel Luke MD MY/MODL /[id number] JAIME
[2019-12-18] VITALS (8 sets, daily range): BP systolic 150–161; BP diastolic 76–86
[2019-12-18] MEDS: D5.45%NS/KCL 20MEQ 1,000 ML IV SCH ×3 (01:32→23:00)
[2019-12-18 05:45] LABS: BASOPHILS % 0.5 % (0.0-1.0); EOSINOPHILS # (AUTO) 0.4 (0.0-0.4); HEMATOCRIT 38.7 % (38.2-49.6); HEMOGLOBIN 12.9 g/dL (14.0-18.0); LYMPHOCYTES # (AUTO) 1.3 (1.0-3.2); LYMPHOCYTES % 17.1 % (18.0-39.1); MEAN CORPUSCULAR HEMOGLOBIN 30.7 pg (28-32); MEAN CORPUSCULAR HGB CONC 33.3 g/dL (31-35); MEAN CORPUSCULAR VOLUME 92.1 fL (81-99); MONOCYTES # (AUTO) 0.6 (0.2-0.8); MONOCYTES % 8.5 % (4.4-11.3); NEUTROPHILS % 67.5 % (38.7-80.0); PLATELET COUNT 209 x10e3/uL (140-360); RED CELL DISTRIBUTION WIDTH 14.4 % (11.7-14.4)
[2019-12-18 06:21] LABS: ANION GAP 11.1 mmol/L (8-16); BLOOD UREA NITROGEN 6 mg/dL (7-26); BUN/CREATININE RATIO 6 (6-25); CALCIUM 8.6 mg/dL (8.4-10.2); CARBON DIOXIDE 27 mmol/L (22-29); CHLORIDE 107 mmol/L (98-107); CREATININE, SERUM 0.95 mg/dL (0.72-1.25); EST GLOMERULAR FILTRATION RATE > 60 ML/MIN (60-); GLUCOSE 113 mg/dL (74-118); POTASSIUM 4.1 mmol/L (3.5-5.1); SODIUM 141 mmol/L (136-145)
--- NOTE | 2019-12-18 07:00 | NUR ---
RCD PT AT BED PT IS ALERT AND ORIENTED AND RESTING ON BED IV PATENT BED LOW AND LOCKED CALL LIGHT IN REACH
[2019-12-18] MEDS: LOSARTAN POTASSIUM 25 MG TAB PO SCH (09:00)
[2019-12-18] MEDS: DOCUSATE SODIUM 100 MG CAP PO SCH ×2 (09:00→17:00)
[2019-12-18] MEDS: TAMSULOSIN HCL 0.4 MG CAP PO SCH (09:00)
[2019-12-18] MEDS: CEFTRIAXONE SOD 1 GM/NS 50 ML 50 ML IV SCH (09:15)
--- NOTE | 2019-12-18 09:17 | NUR ---
DIANN BAUTISTA BY ORDER AND URINE SERIEL BOTTLE GIVEN
--- NOTE | 2019-12-18 15:52 | Progress Note ---
DATE: 12/18/2019 PIN MACHINE OPERATOR: Dr. Rome, Urology. SUBJECTIVE: The patient is status post TURP, Blair removed, still with hematuria. He denies any abdominal pain, fever, chills, nausea, or vomiting. PHYSICAL EXAMINATION: VITAL SIGNS: Temperature 98.1, pulse is 76, respirations 20, blood pressure 160/79, and pulse ox 98% on room air. GENERAL: No acute distress. HEENT: Normocephalic and atraumatic. CARDIOVASCULAR: Regular rate and rhythm. LUNGS: With decreased breath sounds. ABDOMEN: Soft and nontender. NEUROLOGIC: Alert, awake, and oriented x3. MUSCULOSKELETAL: Moves all extremities. No edema. PSYCH: Calm. LABORATORY DATA: WBC 7.37, hemoglobin 12.9, and hematocrit 38.7. Sodium 141, potassium 4.1, BUN 6, creatinine 0.95, and estimated GFR is greater than 60. IMPRESSION: 1. Hypertension. Stable on losartan. 2. Benign prostatic hyperplasia, status post transurethral resection of the prostate. Still with some hematuria, Blair discontinued, continue Rocephin. 3. Acute kidney injury. Resolved. Continue IV fluids. 4. Mild leukocytosis. Resolved. 5. Deep vein thrombosis prophylaxis. SCDs due to hematuria. PLAN: To continue current treatment, may discharge home once urine is clear yellow per Urology. Dictated by KENNETH Martinez Maria Isabel Luke MD MY/MODL /[id number]
--- NOTE | 2019-12-18 18:42 | NUR ---
PT RESTING ON BED BED SIDE REPORT GIVEN TO ONCOMING NURSE
[2019-12-19 04:00] VITALS: BP 147/78
[2019-12-19 06:04] LABS: BASOPHILS # (AUTO) 0.1 (0.0-0.1); BASOPHILS % 0.8 % (0.0-1.0); EOSINOPHILS # (AUTO) 0.5 (0.0-0.4); EOSINOPHILS % 6.6 % (0.0-6.0); HEMATOCRIT 40.3 % (38.2-49.6); HEMOGLOBIN 13.2 g/dL (14.0-18.0); LYMPHOCYTES # (AUTO) 1.6 (1.0-3.2); LYMPHOCYTES % 21.9 % (18.0-39.1); MEAN CORPUSCULAR HEMOGLOBIN 30.7 pg (28-32); MEAN CORPUSCULAR HGB CONC 32.8 g/dL (31-35); MEAN CORPUSCULAR VOLUME 93.7 fL (81-99); MONOCYTES # (AUTO) 0.6 (0.2-0.8); MONOCYTES % 8.1 % (4.4-11.3); NEUTROPHILS # (AUTO) 4.6 (2.1-6.9); NEUTROPHILS % 62.1 % (38.7-80.0); PLATELET COUNT 222 x10e3/uL (140-360); RED CELL DISTRIBUTION WIDTH 14.4 % (11.7-14.4)
[2019-12-19 06:23] LABS: ANION GAP 12.7 mmol/L (8-16); BLOOD UREA NITROGEN 9 mg/dL (7-26); BUN/CREATININE RATIO 8 (6-25); CALCIUM 8.9 mg/dL (8.4-10.2); CARBON DIOXIDE 27 mmol/L (22-29); CHLORIDE 105 mmol/L (98-107); CREATININE, SERUM 1.12 mg/dL (0.72-1.25); EST GLOMERULAR FILTRATION RATE > 60 ML/MIN (60-); GLUCOSE 103 mg/dL (74-118); POTASSIUM 3.7 mmol/L (3.5-5.1); SODIUM 141 mmol/L (136-145)
--- NOTE | 2019-12-19 07:05 | NUR ---
RCD PT AT BED PT IS ALERT AND ORIENTED AND RESTING ON BED IV PATENT BED LOW AND LOCKED CALL LIGHT IN REACH
[2019-12-19 08:41] VITALS: BP 167/78
[2019-12-19 08:50] VITALS: BP 167/78
[2019-12-19] MEDS: LOSARTAN POTASSIUM 25 MG TAB PO SCH (09:00)
[2019-12-19] MEDS: TAMSULOSIN HCL 0.4 MG CAP PO SCH (09:00)
[2019-12-19] MEDS: DOCUSATE SODIUM 100 MG CAP PO SCH (09:00)
[2019-12-19] MEDS: CEFTRIAXONE SOD 1 GM/NS 50 ML 50 ML IV SCH (09:01)
[2019-12-19] MEDS ORDERED: TYLENOL # 31 EA PO (09:18)
[2019-12-19] MEDS ORDERED: LEVAQUIN500 MG PO (09:19)
--- NOTE | 2019-12-19 10:30 | NUR ---
DISCHARGE INSTRUCTIONS GIVEN BY CLINICAL TRIAL HEAD ECHO [id number] ,HE SAID HE UNDERSTOOD
--- NOTE | 2019-12-19 11:19 | NUR ---
PT WENT HOME IN SAFE CONDITION WITH HIS
--- NOTE | 2019-12-20 19:51 | Discharge Summary ---
PRIMARY CARE PHYSICIAN: Dr. Cali Hand. FINAL DISCHARGE DIAGNOSES: 1. Hypertension. 2. BPH, status post TURP. 3. Acute kidney injury. 4. Mild leukocytosis. CONSULTANTS: Dr. Rome with Urology. PROCEDURES: Status post TURP. HISTORY: Per HPI. HOSPITAL COURSE: This is a 74-year-old male, who was admitted status post TURP, Blair catheter was placed and irrigated and given IV antibiotics empirically. Continued irrigating until urine was clear. His Blair catheter was removed yesterday per Urology, and monitored his urine and hematuria. Today, his hematuria is improved, and cleared per Urology for discharge on antibiotics and pain medications. Followup with Dr. Rome in 1 to 2 weeks. He denies any fever, chills, nausea, vomiting, chest pain, or shortness of breath. He has mild tenderness in the suprapubic area. PHYSICAL EXAMINATION: VITAL SIGNS: Temperature 98.4, pulse is 62, respirations 19, blood pressure 167/78, pulse ox is 97% on room air. GENERAL: No acute distress. HEENT: Normocephalic, atraumatic. NECK: Supple. CARDIOVASCULAR: Regular rate and rhythm. LUNGS: Decreased breath sounds. ABDOMEN: Soft and nontender. Mild tenderness in the suprapubic area. NEUROLOGIC: Alert, awake, and oriented x3 MUSCULOSKELETAL: Moves all extremities. CONDITION AT DISCHARGE: Improved and stable, DC medications. Please see medication reconciliation list. FOLLOWUP: Followup with PCP and Urology in 1 to 2 weeks. TIME SPENT: Total time of discharge is 31 minutes. Dictated by KENNETH Martinez Maria Isabel Luke MD MY/MODL /[id number] cc: Cali Hand
--- NOTE | 2020-01-13 04:09 | Operative Report ---
DATE OF PROCEDURE: 12/15/2019 SURGEON: Alberto Rome MD PREOPERATIVE DIAGNOSES: 1. Obstructive benign prostatic hyperplasia. 2. Urinary tract infections. 3. Gross hematuria. POSTOPERATIVE DIAGNOSES: 1. Obstructive benign prostatic hyperplasia. 2. Urinary tract infections. 3. Gross hematuria. 4. Bladder diverticula. OPERATIONS PERFORMED: 1. Cystourethroscopy with bilateral ureteral catheterization and retrograde ureteropyelography (separate procedure performed for the urinary tract infections and hematuria history). 2. Interpretation of retrograde ureteropyelography, no radiologist present. 3. Interpretation of cystography, no radiologist present. 4. Supervision of fluoroscopy, no radiologist present. 5. Cystourethroscopy with transurethral resection of the prostate utilizing the plasma button electrode, an extensive procedure. ANESTHESIA: General. COMPLICATIONS: None. CLINICAL SUMMARY: Taz Blanco is a 74-year-old man with urinary retention and severe acute renal failure and bilateral hydroureteronephrosis. He underwent a prior TURP, but has a very large volume of prostate and needs a second-stage procedure. He is aware of the risks of bleeding, infection, injury to adjacent structures, incontinence, impotence, retrograde ejaculation, need for additional procedures and elected to proceed. OPERATIVE PROCEDURE IN DETAIL: Informed consent was verified. Taz Blanco was properly identified, taken to the operating room, placed on the cystoscopy table in supine position. Anesthesia was uneventfully begun. The patient was then carefully and gently repositioned in the dorsal lithotomy position with all pressure points well padded. His genitalia were prepared and draped in usual sterile fashion. The cystoscope sheath with a visual obturator in place was atraumatically inserted into the patient's urethra, was guided unremarkable urethra through the normal sphincteric region through the prostate bed, which was significant for visual obstructing BPH, most notably at the distal half of the prostatic urethra. We went to the patient's bladder, where there were grade 4 trabeculations throughout the bladder with small diverticula formation throughout. No suspicious lesions and no stones were identified. An 8-English catheter was used to cannulate each ureter and retrograde ureteropyelograms were performed. Interpretation of retrograde ureteropyelography, contrast was instilled in retrograde fashion bilaterally. There were no tumors, no stones, and no diverticula. Unobstructed drainage was observed bilaterally fluoroscopically. Contrast was then injected by the cystoscope and we performed cystography. Interpretation cystography, contrast was instilled in retrograde fashion into the bladder. There were diffuse small bladder diverticula surrounding very trabeculated bladder. This bladder almost have a [place] tree appearance. The cystoscope was withdrawn. The resectoscope sheath was inserted atraumatically with an obturator in place. We then utilized the plasma button electrode to vaporize the prostate from the bladder neck to maneuver past the verumontanum and down the surgical capsule. After doing a very long resection, the patient had a wide open prostatic bed with excellent hemostasis. The resectoscope was withdrawn. Blair catheter was placed. It was irrigated to and fro to ensure it worked properly, was placed on continuous irrigation with pink efflux and the patient was uneventfully reversed from anesthesia and taken to recovery room in stable condition. There were no complications of the procedure. The patient tolerated the procedure well. Estimated blood loss was minimal. Explicit postop instructions were given and we will follow the patient up during this hospitalization, of course on long-term basis. Alberto Rome MD [place]/MODL /[id number]
== END 2019-12-19 11:19 | disposition home or self-care (01) | DRG 713 ==
LOC: OR 05:44 → PACU V 12:34 → MED/SURG 14:25
PROVIDERS: ADMIT Internal Medicine; ATTEND Internal Medicine
PROC: BT141ZZ Fluoroscopy of Kidneys, Ureters and Bladder using Low Osmolar Contrast (ICD-10-PCS; 2019-12-15)
PROC: 0VB08ZZ Excision of Prostate, Via Natural or Artificial Opening Endoscopic (ICD-10-PCS; principal; 2019-12-15 11:01)
PROC: 0T788ZZ Dilation of Bilateral Ureters, Via Natural or Artificial Opening Endoscopic (ICD-10-PCS; 2019-12-15 11:01)
DX: N40.1 Benign prostatic hyperplasia with lower urinary tract symptoms (principal); N17.9 Acute kidney failure, unspecified; R33.8 Other retention of urine; K21.9 Gastro-esophageal reflux disease without esophagitis; I12.9 Hypertensive chronic kidney disease with stage 1 through stage 4 chronic kidney disease, or unspecified chronic kidney disease; N18.9 Chronic kidney disease, unspecified; Z11.59 Encounter for screening for other viral diseases
CPT/HCPCS: 36415; 71046; 74420; 80048; 83735; 85025; 93005; 96361; C1758; J0696; J1100; J1170; J1580; J2001; J2405; J3010; J7030; U0002

== ENCOUNTER 2020-04-14 09:41 | Emergency (ER) | payer MEDICARE ==
[~2020-04-14] VITALS: Ht 177.8 cm; Wt 95.7 kg
[~2020-04-14 09:41] MED LIST changes: +BLOOD PRESSURE PO; +TYLENOL # 31 EA PO
[2020-04-14] MEDS ORDERED: SODIUM CHLORIDE 0.9% 1000ML 1,000 ML IV STA (10:00)
[2020-04-14] MEDS ORDERED: KETOROLAC TROMETHAMINE 30 MG/ML VIAL IV NR (10:03)
[2020-04-14] MEDS ORDERED: DIAZEPAM 5 MG TAB PO NR (10:15)
[2020-04-14 10:37] LABS: BASOPHILS # (AUTO) 0.1 (0.0-0.1); BASOPHILS % 0.8 % (0.0-1.0); EOSINOPHILS % 0.4 % (0.0-6.0); HEMATOCRIT 42.5 % (38.2-49.6); HEMOGLOBIN 14.3 g/dL (14.0-18.0); LYMPHOCYTES # (AUTO) 1.5 (1.0-3.2); LYMPHOCYTES % 21.3 % (18.0-39.1); MEAN CORPUSCULAR HEMOGLOBIN 30.5 pg (28-32); MEAN CORPUSCULAR HGB CONC 33.6 g/dL (31-35); MEAN CORPUSCULAR VOLUME 90.6 fL (81-99); MONOCYTES # (AUTO) 0.4 (0.2-0.8); MONOCYTES % 4.8 % (4.4-11.3); NEUTROPHILS # (AUTO) 5.2 (2.1-6.9); NEUTROPHILS % 72.3 % (38.7-80.0); PLATELET COUNT 266 x10e3/uL (140-360); RED BLOOD COUNT 4.69 x10e6/uL (4.3-5.7); RED CELL DISTRIBUTION WIDTH 14.3 % (11.7-14.4)
[2020-04-14 10:46] LABS: CLARITY,URINE CLEAR (CLEAR); COLOR,URINE YELLOW (YELLOW); KETONES,URINE NEGATIVE (NEGATIVE); LEUKOCYTE ESTERASE ,URINE NEGATIVE (NEGATIVE); NITRITE,URINE NEGATIVE (NEGATIVE); PROTEIN,URINE DIPSTICK NEGATIVE (NEGATIVE); URINE UROBILINOGEN 0.2 mg/dL (0.2 - 1)
[2020-04-14 10:49] LABS: INR 0.96; PROTHROMBIN TIME 13.3 seconds (11.9-14.5)
[2020-04-14 10:50] LABS: PARTIAL THROMBOPLASTIN TIME 32.6 seconds (23.8-35.5)
[2020-04-14 10:55] LABS: BACTERIA,URINE RARE /HPF; EPITHELIAL CELLS,URINE RARE /LPF; RBC,URINE 0-5 /HPF (0-5); WBC,URINE (MAN) 0-5 /HPF (0-5)
[2020-04-14 11:08] LABS: ALBUMIN/GLOBULIN RATIO 1.2 (0.8-2.0); ANION GAP 11.3 mmol/L (8-16); CALCIUM 9.5 mg/dL (8.4-10.2); CREATININE, SERUM 1.2 mg/dL (0.72-1.25); MAGNESIUM 1.8 MG/DL (1.3-2.1); POTASSIUM 3.3 mmol/L (3.5-5.1)
[2020-04-14 11:14] LABS: CREATINE KINASE MB 0.9 ng/mL (0-5.0)
[2020-04-14 13:08] VITALS: BP 158/73
== END 2020-04-14 13:09 | disposition home or self-care (01) ==
LOC: ER 09:52
DX: M54.42 Lumbago with sciatica, left side (principal); M54.41 Lumbago with sciatica, right side; I10 Essential (primary) hypertension; E78.5 Hyperlipidemia, unspecified; K21.9 Gastro-esophageal reflux disease without esophagitis
CPT/HCPCS: 36415; 72110; 80053; 81001; 82550; 82553; 83735; 84484; 85025; 85610; 85730; 87086; 99284; J1885; J7030

== ENCOUNTER → 2021-09-26 | Outpatient (CLI) | payer MEDICARE | LOC: RAD 10:08 | PROVIDERS: ATTEND Family Medicine | DX: R05.9 Cough, unspecified (principal) | CPT/HCPCS: 71046 ==